=== PATIENT | female | born 1970 | race Two or more races ===

== ENCOUNTER 2025-05-11 01:14 | Inpatient (IN) | payer OTHER ==
[~2025-05-11] VITALS: Ht 170.2 cm; Wt 75.9 kg
--- NOTE | 2025-05-11 01:35 | ED.PDOC ---
History of Present Illness HPI Comments 54 y/o F, with a history of CHF, DM, MA, and former and second-hand tobacco, presents with 2x day history of nonradiating, sternal chest tightness, with associated shortness of breath. She reports persisting symptoms following initial, unprovoked onset. Endorses no recent travel, strenuous activities, stressors, prior ailments, or sick contact. She only reports recent history of MA 1x month ago, where she needed chest compressions performed on her alongside a 11x day hospital admission. Admits to compliancy with her medications. Denies any palpitations, nausea, vomiting, fever, chills, or further associated symptoms. 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 Social History Smoker: Non-Smoker, Quit Greater Than 1 Year, Secondhand Alcohol: Denies ETOH Use Drugs: Denies Drug Use Lives In: Home All Other Systems: Reviewed and Negative (see HPI) Physical Exam General Appearance: Mild Distress, Normal HEENT: Normal ENT Inspection, Pharynx Normal, TMs Normal Neck: Full Range of Motion, Non-Tender, Normal, Normal Inspection Respiratory: Chest Non-Tender, No Accessory Muscle Use, No Respiratory Distress, Wheezing (few scattered expiratory wheezes, bilaterally) Cardiovascular: No Edema, No JVD, No Murmur, No Gallop, Normal Peripheral Pulses, Regular Rate/Rhythm Breast Exam: Deferred Gastrointestinal: No Organomegaly, Non Tender, No Pulsatile Mass, Normal Bowel Sounds, Soft Genitalia: Deferred Pelvic: Deferred Rectal: Deferred Extremities: No calf tenderness, Normal capillary refill, Normal inspection, Normal range of motion, Non-tender, No pedal edema Musculoskeletal : Apperance: Normal Neurologic: 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 Was a procedure done?: No EKG EKG : [place]: Normal Cardiac Rhythm: NSR Block: LBBB (incomplete ) Hypertrophy: LVH (with repolarization abnormality ) ST: Normal Differential Dx Considerations may include: MA, PE, ACS, URI, PNA, anxiety, gastritis, gastroenteritis, among others X-Ray, Labs, Meds, VS Vital Signs Date Time Temp Pulse Resp B/P (MAP) Pulse Ox O2 Delivery O2 Flow Rate FiO2 05/11/25 02:41 98.3 89 19 156/94 (114) 96 98.3 05/11/25 01:47 93 05/11/25 01:14 98.9 99 18 183/106 (131) 94 98.9 Lab Test 05/11/25 02:11 05/11/25 01:19 05/11/25 01:03 Range/Units Troponin I High Sensitivity 13 13 </=34 ng/L White Blood Count 5.6 4.4-10.8 10^3/uL Red Blood Count 4.06 4.0-5.20 10^6/uL Hemoglobin 10.7 L 12.2-16.2 g/dL Hematocrit 33.0 L 36.0-46.0 % Mean Corpuscular Volume 81.3 80.0-100.0 fL Mean Corpuscular Hemoglobin 26.2 L 28.0-32.0 pg Mean Corpuscular Hemoglobin Concent 32.3 32.0-36.0 g/dL Red Cell Distribution Width 17.9 H 11.8-14.3 % Platelet Count 255 140-450 10^3/uL Mean Platelet Volume 8.1 6.9-10.8 fL Neutrophils (%) (Auto) 54.8 37.0-80.0 % Lymphocytes (%) (Auto) 32.2 10.0-50.0 % Monocytes (%) (Auto) 8.9 0.0-12.0 % Eosinophils (%) (Auto) 3.1 0.0-7.0 % Basophils (%) (Auto) 1.0 0.0-2.0 % Neutrophils # (Auto) 3.1 1.6-8.6 10 ^3/uL Lymphocytes # (Auto) 1.8 0.4-5.4 10 ^3/uL Monocytes # (Auto) 0.5 0-1.3 10 ^3/uL Eosinophils # (Auto) 0.2 0-0.8 10 ^3/uL Basophils # (Auto) 0.1 0-0.2 10 ^3/uL Nucleated Red Blood Cells 0.1 % Prothrombin Time 10.3 9.3-11.8 sec Prothrombin Time INR 0.97 0.9-1.15 Activated Partial Thromboplast Time 27.2 24.5-34.5 SEC Sodium Level 143 136-145 mmol/L Potassium Level 4.3 3.5-5.1 mmol/L Chloride Level 108 H 98-107 mmol/L Carbon Dioxide Level 27 20-31 mmol/L Anion Gap 8 5-15 Blood Urea Nitrogen 15 9-23 mg/dL Creatinine 1.18 H 0.550-1.02 mg/dL Glomerular Filtration Rate Calc 55 >90 mL/min BUN/Creatinine Ratio 12.7 10.0-20.0 Serum Glucose 162 H 74-106 mg/dL Calcium Level 8.6 L 8.7-10.4 mg/dL Total Bilirubin 0.2 0.2-1.0 mg/dL Aspartate Amino Transferase (AST) 24 <34 U/L Alanine Aminotransferase (ALT) 21 7-40 U/L Alkaline Phosphatase 72 46-116 U/L B-Type Natriuretic Peptide 961.78 0-100 pg/mL Total Protein 6.3 5.7-8.2 g/dL Albumin 3.7 3.2-4.8 g/dL Urine Color Light-yellow Yellow Urine Clarity Clear Clear Urine pH 7.0 5.0-9.0 Urine Specific [place] 1.024 1.001-1.035 Urine Protein 3+ H Negative Urine Ketones Negative Negative Urine Blood 1+ H Negative /uL Urine Nitrite Negative Negative Urine Bilirubin Negative Negative Urine Urobilinogen Normal Negative mg/dL Urine Leukocyte Esterase Negative Negative /uL Urine RBC 11 0 - 4 /hpf Urine Microscopic WBC 11 H 0-5 /HPF Urine Squamous Epithelial Cells Few <5 /hpf Urine Bacteria None seen None Seen /hpf Urine Yeast (Budding) Occasional None Seen /hpf Urine Glucose 4+ H Normal mg/dL Urine Opiates Screen Neg NEGATIVE Urine Fentanyl Screen Neg NEGATIVE Urine Barbiturates Screen Neg NEGATIVE Urine Phencyclidine Screen Neg NEGATIVE Urine Amphetamines Screen Neg NEGATIVE Urine Benzodiazepines Screen Neg NEGATIVE Urine Cocaine Screen Neg NEGATIVE Urine Cannabinoids Screen Neg NEGATIVE Current Medications Medications (Trade) Dose Ordered Sig/Colby Route Start Time Stop Time Status Last Admin Ondansetron HCl (Zofran) 4 mg ONCE ONCE IV 05/11/25 01:30 05/11/25 01:31 DC 05/11/25 02:37 Aspirin 162 mg ONCE ONCE PO 05/11/25 01:30 05/11/25 01:31 DC 05/11/25 02:37 Acetaminophen/ Hydrocodone Bitart ([place] 10/325MG Tab) 1 tab ONCE ONCE PO 05/11/25 03:00 05/11/25 03:03 DC 05/11/25 03:08 Time of 1ST Reevaluation: 01:55 Reevaluation 1ST: Unchanged Patient Education/Counseling: Diagnosis, Treatment Family Education/Counseling: No Family Present Departure 1 Departure Time of Disposition: 03:45 Impression: Primary Impression: Acute coronary syndrome Disposition: 09 ADMITTED INPATIENT Admit to: [facility] Condition: Guarded Comments Chest Pain and Shortness of Breath in 54-year-old Female with Cardiac History Chief Complaint: Chest pain and shortness of breath for two days History of Present Illness: Patient is a 54-year-old female with significant cardiac history including hypertension, congestive heart failure, and prior myocardial infarction, as well as type 2 diabetes mellitus who presents to the Emergency Department with complaints of dull chest pain and shortness of breath for the past two days. The patient reports these symptoms have been persistent but not worsening. She is currently chest pain free after receiving aspirin in the ED. Given her significant cardiac risk factors and current presentation, there is concern for acute coronary syndrome. Review of Systems: Cardiovascular: Positive for dull chest pain for two days, now resolved. Positive for shortness of breath. Respiratory: Positive for shortness of breath for two days. Constitutional: No fever, chills, or weight changes reported. All other systems: Deferred or negative. Medications: Current medications not specified in nut chopper. Aspirin administered in ED. Allergies: No known allergies documented. Past Medical History: 1. Hypertension 2. Congestive Heart Failure (CHF) 3. Previous Myocardial Infarction (MA) 4. Type 2 Diabetes Mellitus Lab Results: CBC: - Hemoglobin and Hematocrit: 10.7/33 (Borderline anemia) Chemistry Panel: - Chloride: 108 mEq/L (Slightly elevated) - BUN: 15 mg/dL (Normal) - Creatinine: 1.18 mg/dL (Slightly elevated) - Glucose: 162 mg/dL (Elevated) Cardiac Markers: - Troponin: 13 ng/L (Normal) - BNP: 962 pg/mL (Elevated) Imaging and Other Relevant Results: Chest X-ray: No acute pathology identified. Medical Decision Making: Summary Statement: 54-year-old female with multiple cardiac risk factors including hypertension, CHF, prior MA, and type 2 diabetes presenting with chest pain and shortness of breath for two days. Lab work shows borderline anemia, mildly elevated creatinine, hyperglycemia, and significantly elevated BNP, though troponin is normal. Chest X-ray shows no acute pathology. Problem List: 1. Acute chest pain, now resolved 2. Shortness of breath 3. Elevated BNP suggesting possible CHF exacerbation 4. Borderline anemia 5. Chronic hypertension 6. Type 2 diabetes with hyperglycemia 7. History of prior MA 8. Mild renal insufficiency Differential Diagnosis: 1. Acute Coronary Syndrome 2. CHF exacerbation 3. Stable angina 4. Hypertensive emergency 5. Pulmonary embolism 6. Pneumonia 7. Ga stroesophageal reflux disease 8. Musculoskeletal chest pain ED Course: Patient presented with chest pain and shortness of breath. Initial workup included CBC, chemistry panel, cardiac enzymes, BNP, and chest X-ray. Patient was administered aspirin and is currently chest pain free. Given her cardiac risk factors and presentation, she is being admitted with a working diagnosis of acute coronary syndrome for further evaluation and management. Assessment and Plan: 1. Acute Coronary Syndrome: - Patient presents with chest pain and shortness of breath with multiple cardiac risk factors - Initial troponin normal, but will need serial troponins to rule out NSTEMI - Administered aspirin in ED with resolution of chest pain - Admit to telemetry for observation and further cardiac workup - Consider cardiology consultation - Plan for stress test or cardiac catheterization as indicated 2. Congestive Heart Failure: - Elevated BNP (962) suggests possible CHF component - Continue current heart failure medications - Monitor fluid status and daily weights - Consider diuresis if evidence of volume overload 3. Hypertension: - Continue home antihypertensive medications - Monitor blood pressure closely 4. Type 2 Diabetes: - Elevated glucose at 162 mg/dL - Continue home diabetic medications with appropriate adjustments for NPO status if needed - Monitor blood glucose levels 5. Borderline Anemia (Hgb 10.7): - Monitor hemoglobin levels - Consider workup for etiology if persistent 6. Mild Renal Insufficiency (Cr 1.18): - Monitor renal function - Adjust medications as needed based on renal function - Ensure adequate hydration Additional Notes: Patient presented to the ED with chest pain and shortness of breath. History of CHF, hypertension, diabetes, and prior MA. Billing Information: ICD-10: I20.9 - Angina pectoris, unspecified ICD-10: I50.9 - Heart failure, unspecified ICD-10: I10 - Essential (primary) hypertension ICD-10: E11.9 - Type 2 diabetes mellitus without complications ICD-10: I25.2 - Old myocardial infarction Critical Care Note Critical Care Time?: Yes (35 min-critical care time only) Critical care comment: chest pain Total critical care time: Approximately 36 minutes Due to a high probability of clinically significant, life threatening deterioration, the patient required my highest level of preparedness to intervene emergently and I personally spent this critical care time directly and personally managing the patient. This critical care time included obtaining a history; examining the patient; pulse oximetry; ordering and review of studies; arranging urgent treatment with development of a management plan; evaluation of patient's response to treatment; frequent reassessment; and, discussions with other providers. This critical care time was performed to assess and manage the high probability of imminent, life-threatening deterioration that could result in multi-organ failure. It was exclusive of separately billable procedures and treating other patients. Stability Stability form required: No Heart Score Heart Score: Heart Score Response (Comments) Value History Highly Suspicious 2 EKG Repolarization Disturb 1 Age 45-64 1 Risk Factors >3 or Hx ASHD 2 Troponin Normal limit 0 Total 6 I personally scribed for SB MCCARTHY MD ([email or web address]) on 05/11/25 at 01:35. Electronically submitted by [facility] ([email or web address]). SB MCCARTHY MD May 11, 2025 01:35
[2025-05-11 01:36] LABS: Basophils # (auto) 0.1 10 ^3/uL (0-0.2); Eosinophils # (auto) 0.2 10 ^3/uL (0-0.8); Eosinophils % (auto) 3.1 % (0.0-7.0); Hemoglobin 10.7 g/dL (12.2-16.2); Lymphocytes # (auto) 1.8 10 ^3/uL (0.4-5.4); Lymphocytes % (auto) 32.2 % (10.0-50.0); Mean Corpuscular Hemoglobin 26.2 pg (28.0-32.0); Mean Corpuscular Hgb Conc. 32.3 g/dL (32.0-36.0); Mean Corpuscular Volume 81.3 fL (80.0-100.0); Monocytes # (auto) 0.5 10 ^3/uL (0-1.3); Monocytes % (auto) 8.9 % (0.0-12.0); Neutrophils # (auto) 3.1 10 ^3/uL (1.6-8.6); Neutrophils % (auto) 54.8 % (37.0-80.0); Nucleated Red Blood Cells % 0.1 %; Platelet Count (auto) 255 10^3/uL (140-450); Red Blood Cells 4.06 10^6/uL (4.0-5.20); Red Cell Distribution Width 17.9 % (11.8-14.3); White Blood Cell 5.6 10^3/uL (4.4-10.8)
[2025-05-11 01:45] LABS: Albumin 3.7 g/dL (3.2-4.8); Alkaline Phosphatase 72 U/L (46-116); Anion Gap 8 (5-15); Aspartate Aminotransferase 24 U/L (<34); BUN/Creatinine Ratio 12.7 (10.0-20.0); Blood Urea Nitrogen 15 mg/dL (9-23); Carbon Dioxide 27 mmol/L (20-31); Potassium 4.3 mmol/L (3.5-5.1); Sodium 143 mmol/L (136-145); Total Protein 6.3 g/dL (5.7-8.2)
[2025-05-11 01:46] LABS: Alanine Aminotransferase 21 U/L (7-40); Bilirubin, Total 0.2 mg/dL (0.2-1.0); Calcium 8.6 mg/dL (8.7-10.4); Chloride 108 mmol/L (98-107); Glucose 162 mg/dL (74-106)
[2025-05-11 01:51] LABS: INR 0.97 (0.9-1.15); Partial Thromboplastin Time 27.2 SEC (24.5-34.5); Prothrombin Time 10.3 sec (9.3-11.8)
--- NOTE | 2025-05-11 01:55 | DVH ---
CHEST RADIOGRAPH Indication: chest pain Technique: Single frontal view of the chest was obtained COMPARISON: None FINDINGS: Lines and Tubes: None Lungs: Clear Pleura: No effusion. No pneumothorax. Cardiomediastinal contours: Unremarkable Bones: Unremarkable IMPRESSION: 1. No acute disease.
[2025-05-11] MEDS: MORPHINE SULFATE 4 MG/ML SYR/VIAL IV ONE (02:33)
[2025-05-11] MEDS: ASPirin 81 mg TAB PO ONE (02:37)
[2025-05-11] MEDS: ONDANSETRON HCL 4 MG/2 ML VIAL IV ONE (02:37)
[2025-05-11 02:49] LABS: Urine Bacteria None Seen /hpf (None Seen)
[2025-05-11 02:58] LABS: Urine Blood 1+ /uL (Negative); Urine Budding Yeast OCCASIONAL /hpf (None Seen); Urine Clarity Clear (Clear); Urine Color Light-Yellow (Yellow); Urine Protein, UAD 3+ (Negative); Urine Specific Gravity 1.024 (1.001-1.035); Urine Squamous Epithelial Cell FEW /hpf (<5); Urine Urobilinogen Normal (Negative); Urine WBC 11 /HPF (0-5)
[2025-05-11] MEDS: HYDROcodone-ACET 10/325MG TAB PO ONE (03:08)
[2025-05-11 03:09] LABS: Cannabinoid Screen, Urine Neg (NEGATIVE); Opiate Scree,Urine Neg (NEGATIVE)
[2025-05-11 03:18] LABS: Amphetamine Screen, Urine Neg (NEGATIVE); Barbiturate Scree,Urine Neg (NEGATIVE); Benzodiazephine Screen, Urine Neg (NEGATIVE); Cocaine Screen, Urine Neg (NEGATIVE); Phencyclidine Screen, Urine Neg (NEGATIVE)
--- NOTE | 2025-05-11 07:10 | DVHHP2 ---
History of Present Illness Reason for Visit: Chest pain History of Present Illness 54-year-old female past medical history CHF hypertension diabetes [place] one month ago which caused cardiac arrest had performed CPR where they broke her ribs anxiety patient denies any surgical history chief complaint patient states that she had an [place] one month ago she was in [place] at that time they had did CPR due to a cardiac arrest in her ribs were broken she was able to get ROS and she states she recently came here from [place] a week ago and reason for comes in the hospital today was history complain of chest pain is midsternal she also states she had some shortness of the breath. Patient states the pain feels like a pr essure pain in her chest wall and she is very fearful because of her prior cardiac arrest. Patient states she is taking her medication which is Lipitor Neurontin Flonase spironolactone Coreg Eliquis Entresto aspirin Imdur. pt unsure why she took eliquis she don't know, did ask about pe or dvt pt denies, pt has started medication in [place], did ask hosp pt unsure of the name, when evaluating for ready hope her aspirin morphine Zofran hemoglobin 10.7/33.0 crea 1.18, glucose 162, trop negative x2, bnp 961.78, cxr negative, us negative, pt will be admitted and cards consult. Past Medical History See HPI above Past Surgical History See HPI above Family History Reviewed, non-contributory to the management of this case. Past Social History The patient lives at home, denies smoking, alcohol or illicit drugs abuse. no longer smoke Review of Systems Constitutional: No: Fever, Chills, Sweats, Weakness, Malaise, Other Eyes: No: Pain, Vision change, Conjunctivae inflammation, Eyelid inflammation, Other, Redness ENT: No: Ear pain, Ear discharge, Nose pain, Nose discharge, Nose congestion, Mouth pain, Mouth swelling, Throat pain, Throat swelling, Other Respiratory: Shortness of breath; No: Cough, Dry, SOB with excertion, Wheezing, Hemoptysis, Pleuritic Pain, Sputum, Wheezing, Other Cardiovascular: Chest Pain; No: Palpitations, Orthopnea, Paroxysmal Noc. Dyspnea, Edema, Lt Headedness, Other Gastrointestinal: No: Nausea, Vomiting, Abdominal Pain, Diarrhea, Constipation, Melena, Hematochezia, Other Genitourinary: No Dysuria, No Frequency, No Incontinence, No Hematuria, No Retention, No Other Musculoskeletal: No: other, neck pain, shoulder pain, arm pain, back pain, hand pain, leg pain, foot pain Skin: No: Rash, Lesions, Jaundice, Bruising, Other Neurological: No: Weakness, Numbness, Incoordination, Change in speech, Confusion, Seizures, Other Allergies: Coded Allergies: Morphine (Verified Allergy, Intermediate, 05/11/25) Exam Vital Signs Vital Signs Date Time Temp Pulse Resp B/P (MAP) Pulse Ox O2 Delivery O2 Flow Rate FiO2 05/11/25 06:23 78 05/11/25 02:41 98.3 19 156/94 (114) 96 98.3 General Appearance: Alert, Oriented X3, Cooperative, No acute distress HEENT: Atraumatic, PERRLA, EOMI, Mucous membr. moist/pink Respiratory: Normal air movement, Other (diminished lungs sound throughout ) Cardiovascular: Regular rate, Normal S1, Normal S2, No murmurs Abdominal: Normal bowel sounds, Soft, No tenderness, No hepatospenomegaly, No masses Extremities: No clubbing, No cyanosis, No edema, Normal pulses, No tenderness/swelling Skin: No rashes, No breakdown, No significant lesion Neuro: Normal gait, Normal speech, Strength at 5/5 X4 ext, Normal tone, Sensation intact, Cranial nerves 3-12 NL Psych/Mental Status: Mental status NL, Mood NL Labs/Xrays Chest x-ray unremarkable I reviewed labs, imaging CT scan abdomen pelvis, EKG and all diagnostic studies on this patient from ED records and the medical chart Labs Test 05/11/25 02:11 05/11/25 01:19 05/11/25 01:03 Range/Units Troponin I High Sensitivity 13 </=34 ng/L White Blood Count 5.6 4.4-10.8 10^3/uL Red Blood Count 4.06 4.0-5.20 10^6/uL Hemoglobin 10.7 L 12.2-16.2 g/dL Hematocrit 33.0 L 36.0-46.0 % Mean Corpuscular Volume 81.3 80.0-100.0 fL Mean Corpuscular Hemoglobin 26.2 L 28.0-32.0 pg Mean Corpuscular Hemoglobin Concent 32.3 32.0-36.0 g/dL Red Cell Distribution Width 17.9 H 11.8-14.3 % Platelet Count 255 140-450 10^3/uL Mean Platelet Volume 8.1 6.9-10.8 fL Neutrophils (%) (Auto) 54.8 37.0-80.0 % Lymphocytes (%) (Auto) 32.2 10.0-50.0 % Monocytes (%) (Auto) 8.9 0.0-12.0 % Eosinophils (%) (Auto) 3.1 0.0-7.0 % Basophils (%) (Auto) 1.0 0.0-2.0 % Neutrophils # (Auto) 3.1 1.6-8.6 10 ^3/uL Lymphocytes # (Auto) 1.8 0.4-5.4 10 ^3/uL Monocytes # (Auto) 0.5 0-1.3 10 ^3/uL Eosinophils # (Auto) 0.2 0-0.8 10 ^3/uL Basophils # (Auto) 0.1 0-0.2 10 ^3/uL Nucleated Red Blood Cells 0.1 % Prothrombin Time 10.3 9.3-11.8 sec Prothrombin Time INR 0.97 0.9-1.15 Activated Partial Thromboplast Time 27.2 24.5-34.5 SEC Sodium Level 143 136-145 mmol/L Potassium Level 4.3 3.5-5.1 mmol/L Chloride Level 108 H 98-107 mmol/L Carbon Dioxide Level 27 20-31 mmol/L Anion Gap 8 5-15 Blood Urea Nitrogen 15 9-23 mg/dL Creatinine 1.18 H 0.550-1.02 mg/dL Glomerular Filtration Rate Calc 55 >90 mL/min BUN/Creatinine Ratio 12.7 10.0-20.0 Serum Glucose 162 H 74-106 mg/dL Calcium Level 8.6 L 8.7-10.4 mg/dL Total Bilirubin 0.2 0.2-1.0 mg/dL Aspartate Amino Transferase (AST) 24 <34 U/L Alanine Aminotransferase (ALT) 21 7-40 U/L Alkaline Phosphatase 72 46-116 U/L B-Type Natriuretic Peptide 961.78 0-100 pg/mL Total Protein 6.3 5.7-8.2 g/dL Albumin 3.7 3.2-4.8 g/dL Urine Color Light-yellow Yellow Urine Clarity Clear Clear Urine pH 7.0 5.0-9.0 Urine Specific [place] 1.024 1.001-1.035 Urine Protein 3+ H Negative Urine Ketones Negative Negative Urine Blood 1+ H Negative /uL Urine Nitrite Negative Negative Urine Bilirubin Negative Negative Urine Urobilinogen Normal Negative mg/dL Urine Leukocyte Esterase Negative Negative /uL Urine RBC 11 0 - 4 /hpf Urine Microscopic WBC 11 H 0-5 /HPF Urine Squamous Epithelial Cells Few <5 /hpf Urine Bacteria None seen None Seen /hpf Urine Yeast (Budding) Occasional None Seen /hpf Urine Glucose 4+ H Normal mg/dL Urine Opiates Screen Neg NEGATIVE Urine Fentanyl Screen Neg NEGATIVE Urine Barbiturates Screen Neg NEGATIVE Urine Phencyclidine Screen Neg NEGATIVE Urine Amphetamines Screen Neg NEGATIVE Urine Benzodiazepines Screen Neg NEGATIVE Urine Cocaine Screen Neg NEGATIVE Urine Cannabinoids Screen Neg NEGATIVE Assessment/Plan Assessment/Plan acute chest pain r/o Acute Coronary Syndrome trop negative and ekg no stemi ordered Cards consult since pt had hx of mi and cardiac arrest ordered asa atorvastatin ordered Echocardiogram follow-up results ordered morphine as needed for pain, ordered nitro prn Acute on chronic diastolic systolic congestive heart failure cxr normal but elevation in bnp 961.18 ordered echo fu results ordered Lasix, asa. atorvastatin strict i/o's consider bipap if worsening resp distress ordered card request restrict sodium daily wt o2 to keep sats >92% acute raeann likely from heart failure cont to dieursis strict i/o's consider renal consult if worsening acute on chronic anemia ordered occult stool fu results monitor hemoglobin uncontrolled type 2 dm ordered accuchecks and ISS rounding team can check hemoglobin a1c uncontrolled benign essential hypertension cont home medication chronic problems mi post cardiac arrest s/p mi fen/ppx diet hl scd no gi ppx since no hx of gerds or gi bleed plan admit to tele cards consult Plan discussed with: Patient Date of Service: May 11, 2025 Billing Provider: DORON PISANO DNP Common Visit Codes: [id number] INP/OBS CARE (HIGH) DORON PISANO DNP May 11, 2025 07:10
--- NOTE | 2025-05-11 08:14 | ECG ---
[facility] Test Date: 2025-05-11 Test Time: 06:23:31 Pat Name: JIGNESH ROOT Department: ED Room: [address] [place] [address] Gender: F Phone Representative: : [phone] Requested By: EMERGENCY EMERGENCY Order Number: [id number] Reading MD: Prieto Martinez Measurements Intervals [place] Rate: 78 P: 32 MT: 173 QRS: -27 QRSD: 117 T: 138 QT: 415 QTc: 473 Interpretive Statements Sinus rhythm LVH with IVCD and secondary repol abnrm Baseline wander in lead(s) I,II,III,aVR,aVF,V2 Electronically Signed On 05-11-2025 17:32:43 PDT by Prieto Martinez Please click the below link to view image of tracing.
[2025-05-11] MEDS ORDERED: DEXTROSE (50%) 50ML SYRG IV PRN (09:15)
[2025-05-11] MEDS ORDERED: NITROGLYCERIN 0.4 MG SL TAB SL PRN (09:15)
[2025-05-11] MEDS: FUROSEMIDE 40 MG/4 ML VIAL IV SCH (10:00)
[2025-05-11 10:51] VITALS: PULSE 82; RESP 16; O2SAT 93
[2025-05-11] MEDS: SACUBITRIL-VALSARTAN 24mg/26mg TAB PO SCH (11:01)
[2025-05-11] MEDS: CARVEDILOL 12.5 MG TAB PO SCH (11:02)
[2025-05-11] MEDS: SPIRONOLACTONE 25 MG TAB PO SCH (11:02)
[2025-05-11] MEDS: InsuLIN REG 1unit/0.01ml Soln (100units/ml) SC SCH (11:15)
[2025-05-11] MEDS: ACCU-CHEK COMFORT CURVE STRIP VI SCH (11:15)
--- NOTE | 2025-05-11 12:53 | DVHINCON2 ---
Date Seen: May 11, 2025 Referring Physician Chris Reason for Consultation Chest Pain, CHF History of Present Illness 54-year-old female with PMH for HTN, HLD, CHF, RI, cardiac arrest s/p CPR, previous tobacco use, COPD, history of amphetamine abuse endorses last use approximately a year ago presents to the hospital with chest pain and shortness of breath. Patient states chest pain pressure in nature retrosternal, nonradiating, reproducible with deep inhalation, tender to touch, patient endorses associated with shortness of breath. Troponin negative x3, BNP 961. CXR unremarkable. Of note patient has endorses was in [place] approximately little over a month ago to worsening shortness of breath, patient states she was a full arrest needing CPR for shows intubated for approximately 1 week. Unaware of what was found. Denies any cardiac workup during that time. EKG reviewed and shows sinus rhythm at 78 beats per minute, nonspecific ST abnormality. Past Medical History As stated above Past Surgical History As stated above Family History Denies pertinent family cardiac history Social History History of tobacco , alcohol, and amphetamine use in the past. Allergies: Coded Allergies: Morphine (Verified Allergy, Intermediate, 05/11/25) Current Medications Current Medications Medications (Trade) Dose Ordered Sig/Colby Route PRN Reason Start Time Stop Time Status Last Admin Atorvastatin Calcium (Lipitor) 40 mg HS PO 05/11/25 22:00 Carvedilol (Coreg Tablet) 12.5 mg Q12HR PO 05/11/25 10:00 05/11/25 11:02 Sacubitril/ Valsartan (Entresto 24-26 Mg tab) 1 tab BID PO 05/11/25 10:00 05/11/25 11:01 Furosemide (Lasix Injection) 40 mg BID IV 05/11/25 10:00 05/11/25 10:00 Spironolactone (Aldactone) 25 mg DAILY PO 05/11/25 10:00 05/11/25 11:02 Nitroglycerin (Ntrostat Sublingual) 0.4 mg Q5MINP PRN SL FOR CHEST PAIN 05/11/25 09:15 Lorazepam (Ativan Tablet) 0.5 mg Q12HP PRN PO ANXIETY 05/11/25 09:15 Diagnostic Test (Pha) (Accu-Chek Comfort Curve T) 1 strip ACHS 05/11/25 11:30 05/11/25 11:15 Insulin Human Regular (InsuLIN R) ACHS SC 05/11/25 11:30 Dextrose 50 ml UD PRN IV Blood Sugar LESS THAN 60 05/11/25 09:15 Gabapentin (Neurontin Capsule) 300 mg TID PO 05/11/25 14:00 Review of Systems Constitutional: No: Fever, Chills, Sweats, Weakness, Malaise, Other Eyes: No: Pain, Vision change, Conjunctivae inflammation, Eyelid inflammation, Other, Redness ENT: No: Ear pain, Ear discharge, Nose pain, Nose discharge, Nose congestion, Mouth pain, Mouth swelling, Throat pain, Throat swelling, Other Respiratory: No: Cough, Dry, Wheezing, Hemoptysis, Sputum, Wheezing, Other positive: Shortness of breath, SOB with exertion, Pleuritic Pain, Cardiovascular: ; No: Palpitations, Orthopnea, Paroxysmal Noc. Edema, Lt Headedness, Other positive: Dyspnea,Chest Pain Gastrointestinal: No: Nausea, Vomiting, Abdominal Pain, Diarrhea, Constipation, Melena, Hematochezia, Other Genitourinary: No Dysuria, No Frequency, No Incontinence, No Hematuria, No Retention, No Other Musculoskeletal: neck pain; No: other, shoulder pain, arm pain, back pain, hand pain, leg pain, foot pain Skin: No: Rash, Lesions, Jaundice, Bruising, Other Neurological: Other (Dizziness, headache.); No: Weakness, Numbness, Incoordination, Change in speech, Confusion, Seizures Vital Signs Vital Signs Date Time Temp Pulse Resp B/P (MAP) Pulse Ox O2 Delivery O2 Flow Rate FiO2 05/11/25 11:02 78 162/96 05/11/25 10:53 16 93 05/11/25 10:51 Room Air* 0 21 05/11/25 09:51 97.9 97.9 Physical Exam General appearance: Patient is well-developed, well-nourished, in no acute distress. HEENT: Exam shows: Normocephalic, atraumatic, PERRLA, EOMI Neck: Supple, no bruits Chest: Equal chest excursion bilaterally. Breath sounds normal-no rales or wheezes. Heart: Rhythm: Regular rate; no murmur or gallop Abdomen: Exam shows: Soft, nontender, nondistended Musculoskeletal: No clubbing, no cyanosis, no lower extremity edema Dermatology: Skin warm, moist. Neurological: Exam shows: Alert and oriented x4, normal speech Available prior records, labs, EKG, rhythm strips reviewed and interpreted Labs/Diagnostic Data Labs Test 05/11/25 09:20 05/11/25 02:11 05/11/25 01:19 05/11/25 01:03 Range/Units D-Dimer, Quantitative 0.92 H 0.0-0.49 mg/L FEU Troponin I High Sensitivity 13 </=34 ng/L Thyroid Stimulating Hormone (TSH) 2.85 0.55-4.78 uIU/mL White Blood Count 5.6 4.4-10.8 10^3/uL Red Blood Count 4.06 4.0-5.20 10^6/uL Hemoglobin 10.7 L 12.2-16.2 g/dL Hematocrit 33.0 L 36.0-46.0 % Mean Corpuscular Volume 81.3 80.0-100.0 fL Mean Corpuscular Hemoglobin 26.2 L 28.0-32.0 pg Mean Corpuscular Hemoglobin Concent 32.3 32.0-36.0 g/dL Red Cell Distribution Width 17.9 H 11.8-14.3 % Platelet Count 255 140-450 10^3/uL Mean Platelet Volume 8.1 6.9-10.8 fL Neutrophils (%) (Auto) 54.8 37.0-80.0 % Lymphocytes (%) (Auto) 32.2 10.0-50.0 % Monocytes (%) (Auto) 8.9 0.0-12.0 % Eosinophils (%) (Auto) 3.1 0.0-7.0 % Basophils (%) (Auto) 1.0 0.0-2.0 % Neutrophils # (Auto) 3.1 1.6-8.6 10 ^3/uL Lymphocytes # (Auto) 1.8 0.4-5.4 10 ^3/uL Monocytes # (Auto) 0.5 0-1.3 10 ^3/uL Eosinophils # (Auto) 0.2 0-0.8 10 ^3/uL Basophils # (Auto) 0.1 0-0.2 10 ^3/uL Nucleated Red Blood Cells 0.1 % Prothrombin Time 10.3 9.3-11.8 sec Prothrombin Time INR 0.97 0.9-1.15 Activated Partial Thromboplast Time 27.2 24.5-34.5 SEC Sodium Level 143 136-145 mmol/L Potassium Level 4.3 3.5-5.1 mmol/L Chloride Level 108 H 98-107 mmol/L Carbon Dioxide Level 27 20-31 mmol/L Anion Gap 8 5-15 Blood Urea Nitrogen 15 9-23 mg/dL Creatinine 1.18 H 0.550-1.02 mg/dL Glomerular Filtration Rate Calc 55 >90 mL/min BUN/Creatinine Ratio 12.7 10.0-20.0 Serum Glucose 162 H 74-106 mg/dL Calcium Level 8.6 L 8.7-10.4 mg/dL Total Bilirubin 0.2 0.2-1.0 mg/dL Aspartate Amino Transferase (AST) 24 <34 U/L Alanine Aminotransferase (ALT) 21 7-40 U/L Alkaline Phosphatase 72 46-116 U/L B-Type Natriuretic Peptide 961.78 0-100 pg/mL Total Protein 6.3 5.7-8.2 g/dL Albumin 3.7 3.2-4.8 g/dL Urine Color Light-yellow Yellow Urine Clarity Clear Clear Urine pH 7.0 5.0-9.0 Urine Specific [place] 1.024 1.001-1.035 Urine Protein 3+ H Negative Urine Ketones Negative Negative Urine Blood 1+ H Negative /uL Urine Nitrite Negative Negative Urine Bilirubin Negative Negative Urine Urobilinogen Normal Negative mg/dL Urine Leukocyte Esterase Negative Negative /uL Urine RBC 11 0 - 4 /hpf Urine Microscopic WBC 11 H 0-5 /HPF Urine Squamous Epithelial Cells Few <5 /hpf Urine Bacteria None seen None Seen /hpf Urine Yeast (Budding) Occasional None Seen /hpf Urine Glucose 4+ H Normal mg/dL Urine Opiates Screen Neg NEGATIVE Urine Fentanyl Screen Neg NEGATIVE Urine Barbiturates Screen Neg NEGATIVE Urine Phencyclidine Screen Neg NEGATIVE Urine Amphetamines Screen Neg NEGATIVE Urine Benzodiazepines Screen Neg NEGATIVE Urine Cocaine Screen Neg NEGATIVE Urine Cannabinoids Screen Neg NEGATIVE Assessment * Chest Pain - atypical. Troponins negative. EKG with nonspecific ST abnormality. ACS ruled out. Follow up echo. * Mild Acute on chronic HF, systolic vs diastolic - continue diuresis with Lasix 40 mg IV twice daily. Monitor strict I&Os. Follow up echo. * CLARENEC - monitor response with diuresis. Avoid nephrotoxic agents. * HX cardiac arrest, s/p CPR - continue telemetry monitoring. * Uncontrolled HTN - continue current regimen, titrate as tolerated. * Diabetes - management per primary team. Case Discussed with Dr Martinez. Plan as above. Follow up to obtain medical records from recent cardiac arrest. Check echo. Continue diuresis. Critical care, time spent: 42 minutes This medical document was created using an electronic medical record system with voice recognition software and computerized dictation system. Although this document has been carefully reviewed, there might still be some phonetic and typographical errors. Occasional wrong-word or ``sound-alike substitutions may have occurred due to the inherent limitations of voice recognition software. These areas are purely typographical due to imperfections of the software programs and do not reflect any compromise in the patient's medical care. Please read the chart carefully and recognize, using context, where these substitutions have occurred. Thank you for allowing me to participate in the management of this patient. The treatment plan was discussed with and agreed upon by patient/family including requesting consultants and ordering of imaging/procedures. Plan discussed with: Patient NYHA Physical activity limitations: Class2(Slight)fatigue,sob Date of Service: May 11, 2025 Billing Provider: RINA TOTH Cardiology Common Codes: 88221-CANODCF INP/OBS CARE (High), 72567-IPPLFXDA CARE 30-74 MIN RINA TOTH May 11, 2025 12:53
--- NOTE | 2025-05-11 14:11 | DVH ---
Bilateral lower extremity venous duplex Clinical History: eval for dvt to ble Comparison: None Technique: Duplex doppler evaluation of the deep venous systems of both lower extremities from the common femora l veins to the popliteal veins including color doppler and spectral/pulsed waveform analysis was perf ormed. Findings: RIGHT SIDE: The common femoral vein demonstrates appropriate compressibility and waveform variability. There is compressibility/patency of the great saphenous vein at the proximal thigh. The femoral vein demonstrates appropriate compressibility and waveform variability. The deep femoral vein demonstrates appropriate compressibility and waveform variability. The popliteal vein demonstrates appropriate compressibility and waveform variability. There is normal compressibility at the tibioperoneal trunk. LEFT SIDE: The common femoral vein demonstrates appropriate compressibility and waveform variability. There is compressibility/patency of the great saphenous vein at the proximal thigh. The femoral vein demonstrates appropriate compressibility and waveform variability. The deep femoral vein demonstrates appropriate compressibility and waveform variability. The popliteal vein demonstrates appropriate compressibility and waveform variability. There is normal compressibility at the tibioperoneal trunk. Impression: 1. No right or left femoropopliteal venous thrombosis.
[2025-05-11] MEDS: GABAPENTIN 100 MG CAP PO SCH (14:43)
[2025-05-11 18:30] VITALS: BP 159/87; PULSE 76; RESP 17; TEMP 98.1; O2SAT 96
[2025-05-11 20:00] VITALS: PULSE 73; PULSE 86; RESP 17; O2SAT 96
[2025-05-11 21:00] VITALS: BP 166/86; PULSE 86; RESP 17; TEMP 97.6; O2SAT 95
[2025-05-11] MEDS: ATORVASTATIN 20 MG TAB PO SCH (21:43)
[2025-05-11] MEDS: HYDROmorphone HCL 2 MG/ML VL/or syr IV PRN (21:45)
[2025-05-11 22:07] VITALS: BP 159/87; PULSE 76; PULSE 86; RESP 17; TEMP 98.1; O2SAT 96
[2025-05-12] VITALS (11 sets, daily range): BP systolic 125–151; BP diastolic 70–87; PULSE 66–83; RESP 14–20; TEMP 97.4–98.1; O2SAT 91–100
[2025-05-12] MEDS ORDERED: SPIR25TA PO (03:50)
[2025-05-12] MEDS ORDERED: CARV6.2517 PO (03:54)
[2025-05-12] MEDS ORDERED: ATOR-507 PO (03:54)
[2025-05-12] MEDS ORDERED: SACU1CAP2 PO (03:54)
[2025-05-12] MEDS ORDERED: APIX5TAB PO (03:54)
[2025-05-12] MEDS ORDERED: GABA-1250 PO (03:54)
[2025-05-12] MEDS ORDERED: MORPHINE SULFATE INJ 2 MG/ml SYRG IV PRN (08:45)
[2025-05-12] MEDS ORDERED: ACETAMINOPHEN 500 MG TAB or CAP PO PRN (08:45)
[2025-05-12] MEDS: ASPirin 81 mg TAB PO SCH (10:54)
--- NOTE | 2025-05-12 11:01 | DVH ---
EXAMINATION: XY RIBS BILATERAL INDICATION: hx of cpr and rb fracture COMPARISON: None TECHNIQUE: Frontal view of the chest and 3 views of the right ribs history FINDINGS: No focal consolidation, pleural effusion or significant pneumothorax. Normal cardiomediastinal silhou ette. Nondisplaced right-sided rib fractures involving right ribs 4 through 7. IMPRESSION: No acute cardiopulmonary disease. Nondisplaced right-sided rib fractures involving right ribs 4 through 7.
--- NOTE | 2025-05-12 12:05 | DVHSR ---
APPROVED REPORT EXAM: Two-dimensional and M-mode echocardiogram with Doppler and color Doppler. Blood Pressure: 130/70 mmHg INDICATION Chest Pain RISK FACTORS Height: 5'7", Weight: 167 DIMENSIONS LVDd6.3 (3.8-5.7cm)LA (2D)5.9 (1.9-4.0cm)Aortic Root3.2 (2.0-3.7cm) LVDs5.7 (2.5-4.0cm)LA (MM) (1.9-4.0cm)Aortic Cusp Exc1.9 (1.5-2.0cm) EF (%) 20.0 (55-70%)Rt. Atrium4.6 (1.9-4.0cm)Asc. Aorta3.5 cm IVSd1.1 (0.7-1.1cm)RV (D)3.5 (1.8-2.4cm) PWd1.2 (0.7-1.1cm) Mitral Valve MitralMitral Stenosis E wave0.71m/sMV Mean GR.mmHg A wave1.06m/sMV Peak GR.mmHg E/A ratio0.72D MVAcm2 DECEL [id number] 1/2 Timems Aortic Valve Aortic ValveAortic Stenosis V10.74m/Daren Mean GR.4mmHg V21.33m/Daren Peak GR.7mmHg LVOT Diameter2.5 (1.8-2.4cm)Doppler AVA2.73cm2 Pulmonic Valve V20.74m/s Tricuspid Valve TR Velocity2.17m/s [id number] Conclusion lvef 30% dilated LV severe LV dysfunction moderate mitral regurg left atrium enlarged
[2025-05-12] MEDS: cefTRIAXone 1GM/50ML D5W 50 ML IV ONE (12:17)
[2025-05-12] MEDS: HYDROcodone-ACET 5/325MG TAB PO PRN (12:18)
--- NOTE | 2025-05-12 13:13 | DVHPN2 ---
Consult Progress Note Date Seen: May 12, 2025 Objective vital signs Vital Sign Date Time Temp Pulse Resp B/P (MAP) Pulse Ox O2 Delivery O2 Flow Rate FiO2 05/12/25 10:55 78 136/90 05/12/25 08:56 98.1 16 96 98.1 05/11/25 22:07 Nasal Cannula* 2 28 Total Intake and Output 05/11/25 05/11/25 05/12/25 15:00 23:00 07:00 Intake Total 905 ml Output Total 0 ml Balance 905 ml medications Current Medications Medications Dose Ordered Sig/Colby Route Start Time Stop Time Status Last Admin Dose Admin Atorvastatin Calcium 40 mg HS PO 05/11/25 22:00 05/11/25 21:43 40 MG Carvedilol 12.5 mg Q12HR PO 05/11/25 10:00 05/12/25 10:55 12.5 MG Sacubitril/ Valsartan 1 tab BID PO 05/11/25 10:00 05/12/25 10:54 1 TAB Furosemide 40 mg BID IV 05/11/25 10:00 05/12/25 10:54 40 MG Spironolactone 25 mg DAILY PO 05/11/25 10:00 05/12/25 10:54 25 MG Nitroglycerin 0.4 mg Q5MINP PRN SL 05/11/25 09:15 Lorazepam 0.5 mg Q12HP PRN PO 05/11/25 09:15 Diagnostic Test (Pha) 1 strip ACHS 05/11/25 11:30 05/12/25 11:30 1 STRIP Insulin Human Regular ACHS SC 05/11/25 11:30 05/12/25 12:25 4 UNITS Dextrose 50 ml UD PRN IV 05/11/25 09:15 Acetaminophen 500 mg Q4HPRN PRN PO 05/12/25 08:45 Acetaminophen/ Hydrocodone Bitart 1 tab Q4HPRN PRN PO 05/12/25 08:45 05/12/25 12:18 1 TAB Morphine Sulfate 1 mg Q4HPRN PRN IV 05/12/25 08:45 UNV Aspirin 81 mg DAILY PO 05/12/25 10:00 05/12/25 10:54 81 MG Ceftriaxone Sodium 50 ml @ 100 mls/hr DAILY@09 IV 05/13/25 09:00 laboratory and microbiology Laboratory Tests 05/11/25 01:19 Test 05/11/25 01:19 Range/Units Serum Glucose 162 H 74-106 mg/dL Problem List/Assessment/Plan Problem List/Assessment/Plan Assessment (Dr. Martinez) * Non-cardiac chest Pain - Transthoracic echocardiogram revealed LVEF 30% with dilated LV and severe LV dysfunction. Troponins negative. EKG with nonspecific ST abnormality. ACS ruled out. * Acute on chronic decompensated HFrEF - GDMT for CHF. Continue diuresis with Lasix 40 mg IV twice daily. Monitor strict I&Os. * Dilated/likely non-ischemic cardiomyopathy - admits to methamphetamine use with latest use three weeks ago after reported full cardiac arrest admission. * Hx cardiac arrest s/p CPR a month ago - continue telemetry monitoring. Awaiting medical records from [facility] in [place], [place] admission a month ago and [facility] in [place], [place] a month ago. * Uncontrolled HTN - continue current regimen, titrate as tolerated. * Recent hx of RLE DVT - venous US negative for acute DVT, on Elqiuis at home. * Ypy-uwwibug-gpulafqvb diabetes mellitus - management per primary team. * Polysubstance abuse - methamphetamines/cannabinoids. Strongly counseled on cessation. Thank you for allowing me to participate in the management of this patient. The treatment plan was discussed with and agreed upon by patient/family including requesting consultants and ordering of imaging/procedures. This medical document was created using an electronic medical record system with voice recognition software and computerized dictation system. Although this document has been carefully reviewed, there might still be some phonetic and typographical errors. Occasional wrong-word or ``sound-alike substitutions may have occurred due to the inherent limitations of voice recognition software. These areas are purely typographical due to imperfections of the software programs and do not reflect any compromise in the patient's medical care. Please read the chart carefully and recognize, using context, where these substitutions have occurred. Plan discussed with: Patient, Other Date of Service: May 12, 2025 Billing Provider: GINETTE DOMINGUEZ Cardiology Common Codes: 02502-[id number] HOSP CARE(High GINETTE DOMINGUEZ May 12, 2025 13:13
[2025-05-12 13:26] LABS: Triglycerides 129 mg/dL (< 150)
[2025-05-12 13:27] LABS: LDL Cholesterol 90 mg/dL (< 100)
[2025-05-12 13:28] LABS: Cholesterol 151 mg/dL (< 200)
[2025-05-12 13:32] LABS: HDL Cholesterol 39 mg/dL (40-59)
--- NOTE | 2025-05-12 14:39 | ECG ---
[facility] Test Date: 2025-05-11 Test Time: 02:47:14 Pat Name: JIGNESH ROOT Department: ER Room: 0291T B Gender: F Carton Stamper: : 1970 Requested By: EMERGENCY EMERGENCY Order Number: [id number] Reading MD: Prieto Martinez Measurements Intervals [place] Rate: 85 P: 41 NH: 165 QRS: -24 QRSD: 118 T: 162 QT: 386 QTc: 459 Interpretive Statements Sinus rhythm Probable left atrial enlargement LVH with IVCD and secondary repol abnrm Electronically Signed On 05-13-2025 17:31:21 PDT by Prieto Martinez Please click the below link to view image of tracing.
--- NOTE | 2025-05-12 14:39 | ECG ---
[facility] Test Date: 2025-05-11 Test Time: 01:24:30 Pat Name: JIGNESH ROOT Department: ER Room: [facility]1T B Gender: F Financial Aid: SASHA : 1970 Requested By: EMERGENCY EMERGENCY Order Number: [id number] Reading MD: Prieto Martinez Measurements Intervals [place] Rate: 93 P: 49 ND: 165 QRS: -26 QRSD: 116 T: 142 QT: 380 QTc: 473 Interpretive Statements Sinus rhythm Probable left atrial enlargement Incomplete left bundle branch block LVH with secondary repolarization abnormality Baseline wander in lead(s) V1 Electronically Signed On 05-13-2025 17:31:20 PDT by Prieto Martinez Please click the below link to view image of tracing.
--- NOTE | 2025-05-12 16:10 | DVHPNRES ---
Progress Note Date Seen: May 12, 2025 Resident Creating Document: LINDA TERRAZAS RESIDENT Medical Necessity Reason Pt with a Central, PICC or Fol: No Subjective Review of Systems This is a 54-year-old female with a history of DVT, heart failure with reduced ejection fraction, diabetes mellitus type 2, hypertension, cardiac arrest status post CPR in intubation for 11 days, rib fractures who presented to the ER with a chief complaint of chest pain which is pressure type, central, nonradiating, not related to exertion with palpable chest tenderness. She reports shortness of breaths, orthopnea, PND, reports taking multiple pillows under the head. She did not have any PCP. Past Medical history:DVT, heart failure with reduced ejection fraction, diabetes mellitus type 2, hypertension, cardiac arrest status post CPR in intubation for 11 days, rib fractures PCP none Home medications: Atorvastatin, Coreg, gabapentin, sacubitril valsartan, spironolactone Patient seen and examined at the bedside. Has basilar crackles, no pitting edema. Objective vital signs Vital Sign Date Time Temp Pulse Resp B/P (MAP) Pulse Ox O2 Delivery O2 Flow Rate FiO2 05/12/25 13:00 97.9 77 20 128/75 (92) 92 97.9 05/12/25 08:00 Room Air* 0 21 Total Intake and Output 05/11/25 05/11/25 05/12/25 15:00 23:00 07:00 Intake Total 905 ml Output Total 0 ml Balance 905 ml medications Current Medications Medications Dose Ordered Sig/Colby Route Start Time Stop Time Status Last Admin Dose Admin Atorvastatin Calcium 40 mg HS PO 05/11/25 22:00 05/11/25 21:43 40 MG Carvedilol 12.5 mg Q12HR PO 05/11/25 10:00 05/12/25 10:55 12.5 MG Sacubitril/ Valsartan 1 tab BID PO 05/11/25 10:00 05/12/25 10:54 1 TAB Spironolactone 25 mg DAILY PO 05/11/25 10:00 05/12/25 10:54 25 MG Nitroglycerin 0.4 mg Q5MINP PRN SL 05/11/25 09:15 Lorazepam 0.5 mg Q12HP PRN PO 05/11/25 09:15 Diagnostic Test (Pha) 1 strip ACHS 05/11/25 11:30 05/12/25 11:30 1 STRIP Insulin Human Regular ACHS SC 05/11/25 11:30 05/12/25 12:25 4 UNITS Dextrose 50 ml UD PRN IV 05/11/25 09:15 Acetaminophen 500 mg Q4HPRN PRN PO 05/12/25 08:45 Acetaminophen/ Hydrocodone Bitart 1 tab Q4HPRN PRN PO 05/12/25 08:45 05/12/25 12:18 1 TAB Morphine Sulfate 1 mg Q4HPRN PRN IV 05/12/25 08:45 UNV Aspirin 81 mg DAILY PO 05/12/25 10:00 05/12/25 10:54 81 MG Ceftriaxone Sodium 50 ml @ 100 mls/hr DAILY@ IV 05/13/25 09:00 Empaglifozin 10 mg DAILY PO 05/13/25 10:00 Furosemide 40 mg BIDD IV 05/12/25 18:00 Examination Patient lying in bed, in no acute distress General: Well-built, afebrile, palor, mucosae are moist Cardiovascular: Regular S1 and S2. No murmurs, gallops or rubs. No JVD elevation. No pedal edema Respiratory: Bibasilar crackles heard on auscultation, on room air. Abdomen: Soft, nontender, nondistended, normoactive bowel sounds, no rebound tenderness, no organomegaly, no masses Genitourinary: Deferred MSK/skin: Mobilizes 4 limbs. Skin is dry and warm Neurological: No motor, no sensitive deficits, normal speech. Pupils are isocoric and reactive. Psych/Mental Status: A/Ox3 laboratory and microbiology Laboratory Tests 05/11/25 01:19 Test 05/11/25 01:19 Range/Units Serum Glucose 162 H 74-106 mg/dL Labs and/or images reviewed: Labs reviewed by me, Image(s) reviewed by me Problem List/Assessment/Plan Problem List/Assessment/Plan Acute on chronic decompensated heart failure with reduced ejection fraction-NYHA class 3 Atypical chest pain ? Musculoskeletal Dilated/nonischemic ewrtuvnwxukkdt-zxpp-[id number] History of cardiac arrest status post intubation and mechanical ventilation Uncontrolled hypertension History of polysubstance use including methamphetamine Chronic nicotine dependence Cardiology consulted-recommended Lasix 40 mg IV twice daily, strict I&Os Cardiac diet Continue Coreg, Entresto, spironolactone, Jardiance Continue aspirin and atorvastatin Echo showed LV 30%, dilated LV, severe LV dysfunction, moderate MR. Left atrium Enlarged Right-sided rib fractures X-ray hip showed Nondisplaced right-sided rib fractures involving right ribs 4 through 7. Acute on chronic COPD exacerbation IV azithromycin daily Duo nebs q.6 hour IV Solu-Medrol 1 dose 40 mg Type 2 diabetes mellitus-A1c 8.6. Mild ISS Anemia likely normocytic Monitor H&H Recent history of DVT Doppler negative Patient denies taking Eliquis at home Vitamin-D deficiency Supplemented Plan discussed with patient in which all questions have been answered Goals of care discussed with the patient more than 20 minutes, full code status Case discussed with Dr. Mercedes Plan discussed with: Patient My Orders My Orders Orders - LINDA TERRAZAS Procedure Category Date Status Time Covid19 Antigen [facility] LAB 05/12/25 Logged 08:33 Rapid Influenza A&B LAB 05/12/25 Logged 08:33 Ribs Bilateral XY 05/12/25 Resulted 08:33 Acetaminophen Tab Or PHA 05/12/25 In Process Cap (Tylenol Tablet 08:45 Hydrocodone-Acet PHA 05/12/25 In Process 5/325mg Tab ([place] 08:45 Morphine Sulfate PHA 05/12/25 Pending Injection 08:45 LINDA TERRAZAS RESIDENT May 12, 2025 16:10
[2025-05-12] MEDS: ERGOCALCIFEROL 50,000 UNIT(1.25MG) CAP PO SCH (18:19)
[2025-05-12] MEDS: methylPREDNISolone SOD SUCC 40 MG/ML VL IV ONE (18:19)
[2025-05-12] MEDS: FUROSEMIDE 40 MG/4 ML VIAL IV SCH (18:22)
[2025-05-12] MEDS: ALBUTEROL SULF 2.5 MG/0.5ML(0.5%) NEB SOLN NEB SCH (19:28)
[2025-05-12] MEDS: IPRATROPIUM BROM 0.5 MG/2.5ML INH SOL NEB SCH (19:28)
[2025-05-12] MEDS: LORazepam 0.5 MG TAB PO PRN (21:19)
[2025-05-13] VITALS (14 sets, daily range): BP systolic 137–165; BP diastolic 71–92; PULSE 68–91; RESP 16–20; TEMP 36.6; O2SAT 92–100
[2025-05-13 07:17] LABS: Basophils # (auto) 0 10 ^3/uL (0-0.2); Eosinophils # (auto) 0 10 ^3/uL (0-0.8); Hemoglobin 10.6 g/dL (12.2-16.2); Mean Corpuscular Hgb Conc. 31.7 g/dL (32.0-36.0); Monocytes # (auto) 0.1 10 ^3/uL (0-1.3); Nucleated Red Blood Cells % 0.1 %; White Blood Cell 5.6 10^3/uL (4.4-10.8)
[2025-05-13 07:19] LABS: Basophils % (auto) 0.1 % (0.0-2.0); Hematocrit 33.4 % (36.0-46.0); Lymphocytes # (auto) 0.5 10 ^3/uL (0.4-5.4); Lymphocytes % (auto) 9.6 % (10.0-50.0); Mean Corpuscular Hemoglobin 26.3 pg (28.0-32.0); Mean Corpuscular Volume 82.8 fL (80.0-100.0); Monocytes % (auto) 1.1 % (0.0-12.0); Neutrophils % (auto) 89.2 % (37.0-80.0); Platelet Count (auto) 212 10^3/uL (140-450); Red Blood Cells 4.03 10^6/uL (4.0-5.20); Red Cell Distribution Width 17.8 % (11.8-14.3)
[2025-05-13 07:32] LABS: Anion Gap 9 (5-15); Carbon Dioxide 26 mmol/L (20-31); Chloride 99 mmol/L (98-107); Potassium 5.1 mmol/L (3.5-5.1)
[2025-05-13 07:34] LABS: Calcium 8.6 mg/dL (8.7-10.4); Sodium 134 mmol/L (136-145)
[2025-05-13 07:38] LABS: BUN/Creatinine Ratio 21.1 (10.0-20.0)
[2025-05-13 07:40] LABS: Blood Urea Nitrogen 27 mg/dL (9-23)
[2025-05-13 07:43] LABS: Glucose 502 mg/dL (74-106)
[2025-05-13] MEDS ORDERED: DEXTROSE (50%) 50ML SYRG IV PRN ×2 (07:45→22:45)
[2025-05-13] MEDS: InsuLIN REG 1unit/0.01ml Soln (100units/ml) SC SCH (08:00)
[2025-05-13] MEDS: ACCU-CHEK COMFORT CURVE STRIP VI SCH (08:00)
--- NOTE | 2025-05-13 08:45 | DVHPN2 ---
Consult Progress Note Date Seen: May 13, 2025 Subjective Review of Systems: CVS:Normal, RESPIRATORY:Abnormal, NEURO:Normal Other Systems: C/o cough Objective vital signs Vital Sign Date Time Temp Pulse Resp B/P (MAP) Pulse Ox O2 Delivery O2 Flow Rate FiO2 05/13/25 06:47 80 16 100 05/13/25 06:41 Nasal Cannula* 2 28 05/13/25 06:26 144/87 05/13/25 05:00 97.9 97.9 Total Intake and Output 05/12/25 05/12/25 05/13/25 15:00 23:00 07:00 Intake Total 540 ml 900 ml 400 ml Output Total 652 ml Balance 540 ml 248 ml 400 ml medications Current Medications Medications Dose Ordered Sig/Colby Route Start Time Stop Time Status Last Admin Dose Admin Atorvastatin Calcium 40 mg HS PO 05/11/25 22:00 05/12/25 21:19 40 MG Carvedilol 12.5 mg Q12HR PO 05/11/25 10:00 05/12/25 10:55 12.5 MG Sacubitril/ Valsartan 1 tab BID PO 05/11/25 10:00 05/12/25 21:18 1 TAB Spironolactone 25 mg DAILY PO 05/11/25 10:00 05/12/25 10:54 25 MG Nitroglycerin 0.4 mg Q5MINP PRN SL 05/11/25 09:15 Lorazepam 0.5 mg Q12HP PRN PO 05/11/25 09:15 05/12/25 21:19 0.5 MG Acetaminophen 500 mg Q4HPRN PRN PO 05/12/25 08:45 Acetaminophen/ Hydrocodone Bitart 1 tab Q4HPRN PRN PO 05/12/25 08:45 05/12/25 18:19 1 TAB Aspirin 81 mg DAILY PO 05/12/25 10:00 05/12/25 10:54 81 MG Empaglifozin 10 mg DAILY PO 05/13/25 10:00 Furosemide 40 mg BIDD IV 05/12/25 18:00 05/13/25 06:26 40 MG Azithromycin 250 ml @ 125 mls/hr DAILY IV 05/13/25 10:00 Albuterol 2.5 mg Q6HWA NEB 05/12/25 18:00 05/13/25 06:41 2.5 MG Ipratropium [place] 0.5 mg Q6HWA NEB 05/12/25 18:00 05/13/25 06:41 0.5 MG Ergocalciferol 50,000 unit Q7D PO 05/12/25 16:45 05/12/25 18:19 50,000 UNIT Diagnostic Test (Pha) 1 strip IQ4HR 05/13/25 08:00 Insulin Human Regular IQ4HR SC 05/13/25 08:00 Dextrose 50 ml UD PRN IV 05/13/25 07:45 Examination: LUNGS:Normal, CVS:Normal, NEURO:Normal laboratory and microbiology Laboratory Tests 05/13/25 05:37 Test 05/13/25 05:37 Range/Units Serum Glucose 502 *H 74-106 mg/dL Problem List/Assessment/Plan Problem List/Assessment/Plan Assessment (Dr. Martinez) * Non-cardiac chest Pain - Transthoracic echocardiogram revealed LVEF 30% with dilated LV and severe LV dysfunction. Troponins negative. EKG with nonspecific ST abnormality. ACS ruled out. * Acute on chronic decompensated HFrEF - GDMT for CHF. Transition to Lasix p.o. * Dilated/likely non-ischemic cardiomyopathy - admits to methamphetamine use with latest use three weeks ago after reported full cardiac arrest admission. * Hx cardiac arrest s/p CPR a month ago - continue telemetry monitoring. Awaiting medical records from [facility] in [place], [place] admission a month ago and [facility] in [place], [place] a month ago. * Uncontrolled HTN - continue current regimen, titrate as tolerated. * Recent hx of RLE DVT - venous US negative for acute DVT, on Elqiuis at home. * Qdk-fztkofc-yaxnafobh diabetes mellitus - management per primary team. * Polysubstance abuse - methamphetamines/cannabinoids. Strongly counseled on cessation. Follow-up with a primary frame operator within 3-4 weeks post-discharge. Patient is cardiac stable. There is no further cardiac work-up indicated at this time. Kindly call if in need to re-consult. Signing off. Thank you for allowing me to participate in the management of this patient. This medical document was created using an electronic medical record system with voice recognition software and computerized dictation system. Although this document has been carefully reviewed, there might still be some phonetic and typographical errors. Occasional wrong-word or ``sound-alike substitutions may have occurred due to the inherent limitations of voice recognition software. These areas are purely typographical due to imperfections of the software programs and do not reflect any compromise in the patient's medical care. Please read the chart carefully and recognize, using context, where these substitutions have occurred. Plan discussed with: Patient, Other Date of Service: May 13, 2025 Billing Provider: GINETTE DOMINGUEZ Cardiology Common Codes: [id number] INP/OBS CARE(Mod) GINETTE DOMINGUEZ May 13, 2025 08:45
[2025-05-13] MEDS ORDERED: cefTRIAXone 1GM/50ML D5W 50 ML IV SCH (09:00)
[2025-05-13] MEDS: EMPAGLIFLOZIN 10 MG TAB PO SCH (10:56)
[2025-05-13] MEDS: AZITHROMYCIN 500MG/ 250ML 250 ML IV SCH (10:57)
[2025-05-13] MEDS: SODIUM CHLORIDE 0.9% 250 ML IV ONE (11:45)
[2025-05-13] MEDS: APIXABAN 5 MG TAB PO SCH (12:56)
[2025-05-13] MEDS ORDERED: CARV6.2517 PO (16:25)
[2025-05-13] MEDS ORDERED: SPIR25TA PO (16:25)
[2025-05-13] MEDS ORDERED: ASPI-325 PO (16:25)
[2025-05-13] MEDS ORDERED: SACU1CAP2 PO (16:25)
[2025-05-13] MEDS ORDERED: UMEC1AER IN (16:25)
[2025-05-13] MEDS ORDERED: FURO1TAB33 PO (16:25)
[2025-05-13] MEDS ORDERED: GABA-1250 PO (16:25)
[2025-05-13] MEDS ORDERED: ALBUAER3 IN (16:25)
[2025-05-13] MEDS ORDERED: APIX5TAB PO (16:25)
[2025-05-13] MEDS ORDERED: ATOR-507 PO (16:25)
[2025-05-13] MEDS ORDERED: CHOL500021 OR (16:25)
--- NOTE | 2025-05-13 16:30 | DVHDSRES ---
Discharge Summary Date of Admission Resident Creating Document: LINDA TERRAZAS RESIDENT May 11, 2025 at 09:02 Date of Discharge: May 13, 2025 Labs/Diagnostic Data: Laboratory Results Test 05/13/25 15:54 05/13/25 05:37 05/12/25 09:58 05/11/25 09:20 POC Glucose 177 mg/dl (70-106) White Blood Count 5.6 10^3/uL (4.4-10.8) Red Blood Count 4.03 10^6/uL (4.0-5.20) Hemoglobin 10.6 g/dL (12.2-16.2) Hematocrit 33.4 % (36.0-46.0) Mean Corpuscular Volume 82.8 fL (80.0-100.0) Mean Corpuscular Hemoglobin 26.3 pg (28.0-32.0) Mean Corpuscular Hemoglobin Concent 31.7 g/dL (32.0-36.0) Red Cell Distribution Width 17.8 % (11.8-14.3) Platelet Count 212 10^3/uL (140-450) Mean Platelet Volume 9.2 fL (6.9-10.8) Neutrophils (%) (Auto) 89.2 % (37.0-80.0) Lymphocytes (%) (Auto) 9.6 % (10.0-50.0) Monocytes (%) (Auto) 1.1 % (0.0-12.0) Eosinophils (%) (Auto) 0.0 % (0.0-7.0) Basophils (%) (Auto) 0.1 % (0.0-2.0) Neutrophils # (Auto) 5.0 10 ^3/uL (1.6-8.6) Lymphocytes # (Auto) 0.5 10 ^3/uL (0.4-5.4) Monocytes # (Auto) 0.1 10 ^3/uL (0-1.3) Eosinophils # (Auto) 0 10 ^3/uL (0-0.8) Basophils # (Auto) 0 10 ^3/uL (0-0.2) Nucleated Red Blood Cells 0.1 % Sodium Level 134 mmol/L (136-145) Potassium Level 5.1 mmol/L (3.5-5.1) Chloride Level 99 mmol/L (98-107) Carbon Dioxide Level 26 mmol/L (20-31) Anion Gap 9 (5-15) Blood Urea Nitrogen 27 mg/dL (9-23) Creatinine 1.28 mg/dL (0.550-1.02) Glomerular Filtration Rate Calc 50 mL/min (>90) BUN/Creatinine Ratio 21.1 (10.0-20.0) Serum Glucose 502 mg/dL (74-106) Calcium Level 8.6 mg/dL (8.7-10.4) Hemoglobin A1c 8.6 % A1C (<5.7) Triglycerides Level 129 mg/dL (< 150) Cholesterol Level 151 mg/dL (< 200) LDL Cholesterol 90 mg/dL (< 100) HDL Cholesterol 39 mg/dL (40-59) Vitamin B12 Level 1031 pg/mL (211-911) Vitamin D 25-Hydroxy 29.1 ng/mL (30.0-100) Beta HCG, Quantitative 1.1 mIU/mL (1.5-4.2) D-Dimer, Quantitative 0.92 mg/L FEU (0.0-0.49) Troponin I High Sensitivity 13 ng/L (</=34) Test 05/11/25 02:11 05/11/25 01:19 05/11/25 01:03 Thyroid Stimulating Hormone (TSH) 2.85 uIU/mL (0.55-4.78) Prothrombin Time 10.3 sec (9.3-11.8) Prothrombin Time INR 0.97 (0.9-1.15) Activated Partial Thromboplast Time 27.2 SEC (24.5-34.5) Total Bilirubin 0.2 mg/dL (0.2-1.0) Aspartate Amino Transferase (AST) 24 U/L (<34) Alanine Aminotransferase (ALT) 21 U/L (7-40) Alkaline Phosphatase 72 U/L (46-116) B-Type Natriuretic Peptide 961.78 pg/mL (0-100) Total Protein 6.3 g/dL (5.7-8.2) Albumin 3.7 g/dL (3.2-4.8) Urine Color Light-yellow (Yellow) Urine Clarity Clear (Clear) Urine pH 7.0 (5.0-9.0) Urine Specific [place] 1.024 (1.001-1.035) Urine Protein 3+ (Negative) Urine Ketones Negative (Negative) Urine Blood 1+ /uL (Negative) Urine Nitrite Negative (Negative) Urine Bilirubin Negative (Negative) Urine Urobilinogen Normal mg/dL (Negative) Urine Leukocyte Esterase Negative /uL (Negative) Urine RBC 11 /hpf (0 - 4) Urine Microscopic WBC 11 /HPF (0-5) Urine Squamous Epithelial Cells Few /hpf (<5) Urine Bacteria None seen /hpf (None Seen) Urine Yeast (Budding) Occasional /hpf (None Urine Glucose 4+ mg/dL (Normal) Urine Opiates Screen Neg (NEGATIVE) Urine Fentanyl Screen Neg (NEGATIVE) Urine Barbiturates Screen Neg (NEGATIVE) Urine Phencyclidine Screen Neg (NEGATIVE) Urine Amphetamines Screen Neg (NEGATIVE) Urine Benzodiazepines Screen Neg (NEGATIVE) Urine Cocaine Screen Neg (NEGATIVE) Urine Cannabinoids Screen Neg (NEGATIVE) Other Laboratory Tests 05/13/25 05:37 Brief Hx & Hospital Course: This is a 54-year-old female with a history of DVT, heart failure with reduced ejection fraction, diabetes mellitus type 2, hypertension, cardiac arrest status post CPR in intubation for 11 days, rib fractures who presented to the ER with a chief complaint of chest pain which is pressure type, central, nonradiating, not related to exertion with palpable chest tenderness. She reports shortness of breaths, orthopnea, PND, reports taking multiple pillows under the head. She did not have any PCP. Past Medical history:DVT, heart failure with reduced ejection fraction, diabetes mellitus type 2, hypertension, cardiac arrest status post CPR in intubation for 11 days, rib fractures PCP none Home medications: Atorvastatin, Coreg, gabapentin, sacubitril valsartan, spironolactone During the hospitalization, patient was diagnosed with a acute on chronic decompensated heart failure with reduced ejection fraction-NYHA class 3, patient was started on Entresto, Coreg, spironolactone, Jardiance along with Lasix 40 mg IV daily. She also had wheezing on expiration, she was started on IV azithromycin and nebulized treatments. Echocardiogram was completed which showed LVEF 30%, dilated LV, severe LV dysfunction. Moderate MR. Left atrial enlargement. Cardiology was consulted for chest pain, recommended continuing medical management. Ruled out ACS. EKG and troponins were unremarkable. We continued cardiac diet at this time. Continued aspirin and atorvastatin daily. X-ray rib showed right sided nondisplaced rib fractures involving ribs 4-7. Patient's hemoglobin A1c was 8.6, she was started on mild ISS. Given the recent history of DVT and patient not taking anticoagulant, Eliquis was started and lower extremity Doppler ruled out DVT. Vitamin D2 was supplemented. Discharge plan: Continue Entresto, Coreg, spironolactone, Lasix Continue Eliquis 5 mg b.i.d. for the next 3 months Continue metformin 500 mg extended release twice daily Continue Anoro Ellipta inhaler 1 puff twice daily Continue albuterol inhaler as needed for shortness of breaths Follow up with primary care physician within 7 days Follow up with [employer] for spirometry Follow up with compliance reviewer for outpatient management Patient agreed to discharge planning. Side effects of medication were discussed with the patient during discharge. All concerns answered. Consults/Reason for consult Cardiology consulted for chest pain Operations or Procedures APPROVED REPORT EXAM: Two-dimensional and M-mode echocardiogram with Doppler and color Doppler. Blood Pressure: 130/70 mmHg INDICATION Chest Pain RISK FACTORS Height: 5'7", Weight: 167 DIMENSIONS LVDd 6.3 (3.8-5.7cm) LA (2D) 5.9 (1.9-4.0cm) Aortic Root 3.2 (2.0- 3.7cm) LVDs 5.7 (2.5-4.0cm) LA (MM) (1.9-4.0cm) Aortic Cusp Exc 1.9 (1.5- 2.0cm) EF (%) 20.0 (55-70%) Rt. Atrium 4.6 (1.9-4.0cm) Asc. Aorta 3.5 cm IVSd 1.1 (0.7-1.1cm) RV (D) 3.5 (1.8-2.4cm) PWd 1.2 (0.7-1.1cm) Mitral Valve Mitral Mitral Stenosis E wave 0.71m/s MV Mean GR. mmHg A wave 1.06m/s MV Peak GR. mmHg E/A ratio 0.7 2D MVA cm2 DECEL Time 178ms PRESS 1/2 Time ms Aortic Valve Aortic Valve Aortic Stenosis V1 0.74m/s AO Mean GR. 4mmHg V2 1.33m/s AO Peak GR. 7mmHg LVOT Diameter 2.5 (1.8-2.4cm) Doppler MARTY 2.73cm2 Pulmonic Valve V2 0.74m/s Tricuspid Valve TR Velocity 2.17m/s RVSP 22mmHg Conclusion lvef 30% dilated LV severe LV dysfunction moderate mitral regurg left atrium enlarged SIGNED BY: CORINE BLOOD MD SIGNED DATE/TIME: 05/12/25 1205 CC: Condition at Discharge: Stable Final Diagnosis/Problems List Acute on chronic decompensated heart failure with reduced ejection fraction-NYHA class 3 Acute on chronic COPD exacerbation Type 2 diabetes mellitus-A1c 8.6 Atypical chest pain likely musculoskeletal Likely dilated uiv[place]-wcne-woryrav History of cardiac arrest status post intubation and mechanical ventilation 1 month back History of DVT earlier this year-not taking anticoagulation at home-resumed anticoagulation Uncontrolled hypertension History of polysubstance use including methamphetamine Chronic nicotine dependence Right-sided rib fractures Anemia likely normocytic Vitamin-D deficiency Discharge Disposition: Home Discharge Instruct/Medications Diet: Consistent carbohydrate, Cardiac 2g Na,low cholest Activity: Light activity Follow Up/Referral: Follow up with compliance reviewer as outpatient within 7 days Follow up with pulmonology within 7 days for spirometry Follow up primary care physician within 7 days Medications: Albuterol inhaler as needed Anoro Ellipta inhaler twice daily Metformin 500 mg XL twice daily Resume home medications Discharge Statement: "Patient was advised to return to the ER or call 911 if any headaches, dizziness, shortness of breath, chest pain, abdominal pain, bleeding, fevers, or worsening of medical condition. Patient was counseled about treatment plan, medications, possible side effects, patientverbalized understanding. All questions were answered to the best of my ability. This discharge took greater then 30 minutes in planning, reviewing documentation, counseling the patient, and discussing with other team members." ASSESSMENT ASSESSMENT Assessment Acute on chronic decompensated heart failure with reduced ejection fraction-NYHA class 3 Acute on chronic COPD exacerbation Type 2 diabetes mellitus-A1c 8.6 LINDA TERRAZAS RESIDENT May 13, 2025 16:30
[2025-05-13] MEDS ORDERED: BLOO-169 XX (16:50)
[2025-05-13] MEDS ORDERED: LANC-347 XX (16:50)
[2025-05-13] MEDS: FUROSEMIDE 40 MG TAB PO SCH (18:00)
[2025-05-13] MEDS ORDERED: METF-370 PO (19:50)
[2025-05-13] MEDS ORDERED: EMPA1TAB PO (19:50)
[2025-05-13] MEDS ORDERED: NITROGLYCERIN 0.4 MG SL TAB SL PRN (22:15)
[2025-05-13] MEDS ORDERED: ACETAMINOPHEN 500 MG TAB or CAP PO PRN (22:30)
[2025-05-13] MEDS: APIXABAN 5 MG TAB PO ONE (22:51)
[2025-05-13] MEDS: CARVEDILOL 12.5 MG TAB PO ONE (22:51)
[2025-05-13] MEDS: ATORVASTATIN 20 MG TAB PO ONE (22:51)
[2025-05-13] MEDS: SACUBITRIL-VALSARTAN 24mg/26mg TAB PO ONE (22:52)
[2025-05-13] MEDS: HYDROcodone-ACET 5/325MG TAB PO PRN (22:53)
[2025-05-14] MEDS: ACCU-CHEK COMFORT CURVE STRIP VI SCH
[2025-05-14] MEDS: LORazepam 0.5 MG TAB PO PRN (01:40)
[2025-05-14] MEDS: ERGOCALCIFEROL 50,000 UNIT(1.25MG) CAP PO SCH (01:51)
[2025-05-14] MEDS: InsuLIN REG 1unit/0.01ml Soln (100units/ml) SC SCH (01:52)
[2025-05-14 05:00] VITALS: BP 153/86; PULSE 72; RESP 18; TEMP 97.6; O2SAT 94
[2025-05-14] MEDS: FUROSEMIDE 40 MG TAB PO SCH (05:35)
[2025-05-14 07:24] VITALS: PULSE 62; RESP 18; O2SAT 98
[2025-05-14] MEDS: ALBUTEROL SULF 2.5 MG/0.5ML(0.5%) NEB SOLN NEB SCH (07:24)
[2025-05-14] MEDS: IPRATROPIUM BROM 0.5 MG/2.5ML INH SOL NEB SCH (07:24)
[2025-05-14 07:32] VITALS: PULSE 66; RESP 16; O2SAT 100
[2025-05-14] MEDS ORDERED: INSUINJ37 SC (07:47)
[2025-05-14] MEDS ORDERED: INSU100I52 SC (07:47)
[2025-05-14] MEDS ORDERED: ISOP70MI2 EX (07:48)
[2025-05-14 08:00] VITALS: PULSE 74; RESP 20; O2SAT 96
[2025-05-14] MEDS: CARVEDILOL 12.5 MG TAB PO SCH (08:32)
[2025-05-14] MEDS: APIXABAN 5 MG TAB PO SCH (08:33)
[2025-05-14] MEDS: EMPAGLIFLOZIN 10 MG TAB PO SCH (08:33)
[2025-05-14] MEDS: SACUBITRIL-VALSARTAN 24mg/26mg TAB PO SCH (08:33)
[2025-05-14] MEDS: SPIRONOLACTONE 25 MG TAB PO SCH (08:33)
[2025-05-14] MEDS: ASPirin 81 mg TAB PO SCH (08:33)
[2025-05-14 08:48] VITALS: BP 154/86; PULSE 74; RESP 20; TEMP 96.9; O2SAT 96
[2025-05-14] MEDS: AZITHROMYCIN 500MG/ 250ML 250 ML IV SCH (09:03)
[2025-05-14] MEDS ORDERED: IPRATROPIUM BROM 0.5 MG/2.5ML INH SOL ONE (11:11)
[2025-05-14] MEDS ORDERED: ALBUTEROL SULF 2.5 MG/0.5ML(0.5%) NEB SOLN ONE (11:11)
[2025-05-14] MEDS ORDERED: BLOO-169 XX (17:42)
[2025-05-14] MEDS ORDERED: INSU100I45 IJ (17:42)
[2025-05-14] MEDS ORDERED: LANC-347 XX (18:09)
[2025-05-14] MEDS ORDERED: GLUC-145 SUBCUT (18:09)
[2025-05-14] MEDS ORDERED: INSU31MI32 XX (18:09)
[2025-05-14] MEDS ORDERED: BLOOMIS92 XX (18:09)
[2025-05-14] MEDS ORDERED: ATORVASTATIN 20 MG TAB PO SCH (22:00)
== END 2025-05-14 08:56 | disposition home or self-care (01) | DRG 194 ==
LOC: ER 01:14 → OVERFLOW 03:43 → TELE-WESTW 18:44 → UNDODISIN 05-13 19:18
PROVIDERS: ADMIT Student in an Organized Health Care Education/Training Program; ATTEND Student in an Organized Health Care Education/Training Program
DX: I11.0 Hypertensive heart disease with heart failure (principal); J96.01 Acute respiratory failure with hypoxia; E11.00 Type 2 diabetes mellitus with hyperosmolarity without nonketotic hyperglycemic-hyperosmolar coma (NKHHC); N17.9 Acute kidney failure, unspecified; S22.41XA Multiple fractures of ribs, right side, initial encounter for closed fracture; J44.1 Chronic obstructive pulmonary disease with (acute) exacerbation; R07.89 Other chest pain; I25.2 Old myocardial infarction; I50.43 Acute on chronic combined systolic (congestive) and diastolic (congestive) heart failure; I42.7 Cardiomyopathy due to drug and external agent; I42.8 Other cardiomyopathies; Z86.74 Personal history of sudden cardiac arrest; D64.9 Anemia, unspecified; E11.9 Type 2 diabetes mellitus without complications; E78.5 Hyperlipidemia, unspecified; F41.9 Anxiety disorder, unspecified; E55.9 Vitamin D deficiency, unspecified; T50.995A Adverse effect of other drugs, medicaments and biological substances, initial encounter; F15.10 Other stimulant abuse, uncomplicated; Z88.5 Allergy status to narcotic agent; Z87.891 Personal history of nicotine dependence; Z86.718 Personal history of other venous thrombosis and embolism; Z79.84 Long term (current) use of oral hypoglycemic drugs; X58.XXXA Exposure to other specified factors, initial encounter; Y93.89 Activity, other specified; Y92.89 Other specified places as the place of occurrence of the external cause; Y99.8 Other external cause status
CPT/HCPCS: 36415; 71045; 71111; 80048; 80053; 80061; 80307; 81001; 82306; 82607; 82962; 83036; 83880; 84443; 84484; 84702; 85025; 85379; 85610; 85730; 93005; 93306; 93970; 94640; 96374; 99291; G0378; J1815; J2405

== ENCOUNTER 2025-05-27 12:48 | Inpatient (IN) | payer MEDICAID, OTHER ==
[~2025-05-27] VITALS: Ht 170.2 cm; Wt 81.5 kg
[~2025-05-27 12:48] MED LIST: ALBUAER3 IN; APIX5TAB PO; ASPI-325 PO; ATOR-507 PO; BLOO-169 XX; BLOOMIS92 XX; CARV6.2517 PO; CHOL500021 OR; FURO1TAB33 PO; GABA-1250 PO; GLUC-145 SUBCUT; INSU100I45 IJ; INSU31MI32 XX; INSUINJ37 SC; ISOP70MI2 EX; LANC-347 XX; SACU1CAP2 PO; SPIR25TA PO; UMEC1AER IN
--- NOTE | 2025-05-27 13:03 | ED.PDOC ---
History of Present Illness HPI Comments 54 year old female with a History of IN, HTN, DM, High Lipids, COPD, and CHF presents to the ED for the c/c of Substernal Chest pain. Pt states that her CP started at approx 0800 this am, and has since found no alleviating factors. Pt does note of a previous of N/ and a previous IN that took place 2x months ago. Pt EKG was noted to be 81 NSR with a LBBB, Dr. Gutierres was notified. No other symptoms or modifying factors reported at this time. Patient is alert and oriented x4 and has a stable gait. Chief Complaint: Chest Pain Time Seen by MD: 12:58 Reviewed Notes: Nurses Notes, Medications, Allergies Allergies: Coded Allergies: Morphine (Verified Allergy, Intermediate, 05/11/25) Metformin (Unverified Adverse Reaction, Intermediate, cold through lower back , 05/14/25) Patient states that she feels a coldness throuhout her lower back Home Meds Active Scripts Insulin Pen Needle (Bd Ultrafine Short Pen Ne) 31GX5/16 Mis, UNITS XX ACHS, #100 0 Refills Prov:ARMIN HENSLEY MD 05/14/25 Lancets (Freestyle Lancets) Lancets Mis, UNIT XX ACHS, #120 0 Refills Prov:ARMIN HENSLEY MD 05/14/25 Glucose Blood (Freestyle Test Strips) [place], 1 UNITS SUBCUT ACHS, #120 MISC 0 Refills Prov:ARMIN HENSLEY MD 05/14/25 Blood Glucose Monitoring Suppl (Freestyle Lite Blood Gluc) Lite Mis, UNIT XX ACHS, #1 0 Refills Prov:ARMIN HENSLEY MD 05/14/25 Blood Glucose Monitoring Suppl (EASY TOUCH GLUCOSE MONITO) Monitor Kit, UNIT XX ACHS, #1 0 Refills Prov:ARMIN HENSLEY MD 05/14/25 Insulin Regular (Human) (Novolin R Flexpen) 100 Unit/Ml Inj, 2-14 UNIT IJ TIDWM PRN for 30 Days, #1 INJ 0 Refills Blood Sugar RangeLispro Insulin Instructions Less than 70Hold all insulin 70-1500 units 151-1742 units 175-1994 units 200-2246 units 225-2498 units 250-65358 units 275-72502 units Greater than 300 Administer 14 units Prov:ARMIN HENSLEY MD 05/14/25 Isopropyl Alcohol (Isopropyl Alcohol Wipes) 70 % Mis, 70 % EX ACHS for 30 Days, #120 MISC 0 Refills Prov:LINDA TERRAZAS 05/14/25 Insulin Glargine (Lantus Solostar) 100 Unit/Ml Inj, 10 UNIT SC HS for 30 Days, # 5 INJ 0 Refills Prov:LINDA TERRAZAS 05/14/25 Lancets (Freestyle Lancets) Lancets Mis, EA XX DAILY, #120 0 Refills Fasting Prov:LINDA TERRAZAS 05/13/25 Blood Glucose Monitoring Suppl (EASY TOUCH GLUCOSE MONITO) Monitor Kit, EA XX DAILY, #1 0 Refills international 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 Prov:LINDA TERRAZAS 05/13/25 Albuterol Sulfate (VENTOLIN MDI) 90 Mcg Ih, 90 MCG IN DAILY for 30 Days, #1 INH Prov:VICENTA TERRAZASER 05/13/25 Cholecalciferol (VITAMIN D) 5,000 Unit Tab, 5000 UNIT OR DAILY for 30 Days, #30 TAB [facility] 05/13/25 Aspirin (Aspirin Low Dose) 81 Mg Tab, 81 MG PO DAILY for 30 Days, #30 TAB Prov:VICENTA TERRAZASER 05/13/25 Umeclidinium-Vilanterol (Anoro Ellipta 62.5-25 Mcg/INH) 1 Aer Aer, 1 AER IN BID for 30 Days, #1 AER 0 Refills Prov:VICENTA TERRAZASER 05/13/25 Furosemide (Lasix) 20 Mg Tb, 1 TAB PO BID for 30 Days, #60 TAB 3 Refills Prov[facility] 05/13/25 Atorvastatin Calcium (Lipitor) 40 Mg Tab, 1 TAB PO QPM for 30 Days, #30 TAB 1 Refill 40 mg daily Prov[facility] 05/13/25 Gabapentin (Gabapentin) 300 Mg Cap, 1 CAP PO TID for 30 Days, #90 CAP 5 Refills [facility] 05/13/25 Sacubitril-Valsartan (Entresto 15-16 mg) 1 Cap Cap, 1 CAP PO BID for 30 Days, #60 CAP Prov:[facility] 05/13/25 Apixaban Base (ELIQUIS) 5 Mg Tab, 5 MG PO BID for 30 Days, #60 TAB Prov:VICENTA TERRAZASER RESIDENT 05/13/25 Carvedilol (Coreg) 6.25 Mg Tab, 6.25 MG PO BID for 30 Days, #60 TAB Prov:MKLINDA [facility] 05/13/25 Spironolactone (Aldactone) 25 Mg Tab, 1 TAB PO DAILY for 30 Days, #30 TAB 3 Refills Prov:VICENTA TERRAZASSHER WILLIS 05/13/25 Information Source: Patient Mode of Arrival: Ambulatory Severity: Moderate Timing: Hours Duration: Since onset, Hours Prehospital treatment: None Past Medical History PAST MEDICAL HISTORY: CHF, COPD, DM, High Lipids, HTN, [place] Surgical History: Denies all surgeries 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 Family History Family History: Family hx of DM, Family hx of heart shagufta Social History Smoker: Non-Smoker, Quit Greater Than 1 Year, Secondhand Alcohol: Denies ETOH Use Drugs: Denies Drug Use Lives In: Home Constitutional: denies: chills, diaphoresis, fatigue, fever, malaise, sweats, weakness, others EENTM: denies: blurred vision, double vision, ear bleeding, ear discharge, ear drainage, ear pain, ear ringing, eye pain, eye redness, hearing loss, mouth pain, mouth swelling, nasal discharge, nose bleeding, nose congestion, nose pain, photophobia, tearing, throat pain, throat swelling, voice changes, others Respiratory: denies: cough, hemoptysis, orthopnea, SOB at rest, shortness of breath, SOB with excertion, stridor, wheezing, others Cardiovascular: reports: chest pain; denies: dizzy spells, diaphoresis, Dyspnea on exertion, edema, irregular heart beat, left arm pain, lightheadedness, palpitations, PND, syncope, others Gastrointestinal: reports: nausea; denies: abdomen distended, abdominal pain, blood streaked bowels, constipated, diarrhea, dysphagia, difficulty swallowing, hematemesis, melena, poor appetite, poor fluid intake, rectal bleeding, rectal pain, vomiting, others Genitourinary: denies: abnormal vagina bleeding, burning, dyspareunia, dysuria, flank pain, frequency, hematuria, incontinence, pain, , vagina discharge, urgency, others Neurological: denies: dizziness, fainting, headache, left sided numbness, left sided weakness, numbness, paresthesia, pre-existing deficit, right sided numbness, right sided weakness, seizure, speech problems, tingling, tremors, weakness, others Musculoskeletal: denies: back pain, gout, joint pain, joint swelling, muscle pain, muscle stiffness, neck pain, others Integumetry: denies: bruises, change in color, change in hair/nails, dryness, laceration, lesions, lumps, rash, wounds, others Allergic/Immunocompromised: denies: Difficulty Healing, Frequent Infections, Hives, Itching, others Hematologic/Lymphatic: denies: anemia, blood clots, easy bleeding, easy bruising, swollen glands, others Endocrine: denies: excessive hunger, excessive sweating, excessive thirst, excessive urination, flushing, intolerance to cold, intolerance to heat, unexplained weight gain, unexplained weight loss, others Psychiatric: denies: anxiety, bipolar disorder, depression, hopeless, panic disorder, schizophrenia, sleepless, suicidal, others All Other Systems: Reviewed and Negative Physical Exam General Appearance: Moderate Distress HEENT: Normal ENT Inspection, Pharynx Normal, TMs Normal Neck: Full Range of Motion, Non-Tender, Normal, Normal Inspection Respiratory: Chest Non-Tender, Lungs Clear, No Accessory Muscle Use, No Respiratory Distress, Normal Breath Sounds Cardiovascular: No Edema, No JVD, No Murmur, No Gallop, Normal Peripheral Pulses, Regular Rate/Rhythm Breast Exam: Deferred Gastrointestinal: No Organomegaly, Non Tender, No Pulsatile Mass, Normal Bowel Sounds, Soft Genitalia: Deferred Pelvic: Deferred Rectal: Deferred Extremities: No calf tenderness, Normal capillary refill, No pedal edema Musculoskeletal : Apperance: Normal Neurologic: Alert, plaster helper II-XII nml as Tested, Motor Weakness, Normal Affect, Normal Mood, No Sensory Deficits Cerebellar Function: Normal Reflexes: Normal Skin: Dry, Pallor, Warm Lymphatic: No Adenopathy Was a procedure done? Was a procedure done?: No EKG EKG : Pulse Rate (adult): 81 Taylor: Normal Cardiac Rhythm: NSR Block: LBBB Hypertrophy: None ST: Normal Differential Dx Considerations may include: ACS, IN, generalized weakness, electrolyte imbalance X-Ray, Labs, Meds, VS Vital Signs Date Time Temp Pulse Resp B/P (MAP) Pulse Ox O2 Delivery O2 Flow Rate FiO2 05/27/25 14:11 99 18 131/81 05/27/25 13:52 93 05/27/25 13:50 93 18 99 Room Air 05/27/25 13:50 99.0 93 18 131/87 (102) 99 99.0 05/27/25 13:03 81 05/27/25 12:52 81 05/27/25 12:50 97.8 84 17 149/92 (111) 98 97.8 Lab Test 05/27/25 13:55 05/27/25 13:49 05/27/25 13:05 Range/Units Troponin I High Sensitivity 14 15 </=34 ng/L Urine Color Colorless Yellow Urine Clarity Clear Clear Urine pH 5.5 5.0-9.0 Urine Specific [place] 1.016 1.001-1.035 Urine Protein 2+ H Negative Urine Ketones Negative Negative Urine Blood 1+ H Negative /uL Urine Nitrite Negative Negative Urine Bilirubin Negative Negative Urine Urobilinogen Normal Negative mg/dL Urine Leukocyte Esterase Negative Negative /uL Urine RBC 2 0 - 4 /hpf Urine Microscopic WBC 13 H 0-5 /HPF Urine Squamous Epithelial Cells Few <5 /hpf Urine Bacteria Few H None Seen /hpf Urine Glucose 4+ H Normal mg/dL White Blood Count 7.6 4.4-10.8 10^3/uL Red Blood Count 4.18 4.0-5.20 10^6/uL Hemoglobin 11.3 L 12.2-16.2 g/dL Hematocrit 34.8 L 36.0-46.0 % Mean Corpuscular Volume 83.1 80.0-100.0 fL Mean Corpuscular Hemoglobin 27.0 L 28.0-32.0 pg Mean Corpuscular Hemoglobin Concent 32.5 32.0-36.0 g/dL Red Cell Distribution Width 18.9 H 11.8-14.3 % Platelet Count 304 140-450 10^3/uL Mean Platelet Volume 8.7 6.9-10.8 fL Neutrophils (%) (Auto) 65.2 37.0-80.0 % Lymphocytes (%) (Auto) 21.1 10.0-50.0 % Monocytes (%) (Auto) 6.1 0.0-12.0 % Eosinophils (%) (Auto) 6.5 0.0-7.0 % Basophils (%) (Auto) 1.1 0.0-2.0 % Neutrophils # (Auto) 5.0 1.6-8.6 10 ^3/uL Lymphocytes # (Auto) 1.6 0.4-5.4 10 ^3/uL Monocytes # (Auto) 0.5 0-1.3 10 ^3/uL Eosinophils # (Auto) 0.5 0-0.8 10 ^3/uL Basophils # (Auto) 0.1 0-0.2 10 ^3/uL Nucleated Red Blood Cells 0.1 % Sodium Level 140 136-145 mmol/L Potassium Level 5.3 H 3.5-5.1 mmol/L Chloride Level 106 98-107 mmol/L Carbon Dioxide Level 27 20-31 mmol/L Anion Gap 7 5-15 Blood Urea Nitrogen 31 H 9-23 mg/dL Creatinine 1.09 H 0.550-1.02 mg/dL Glomerular Filtration Rate Calc 60 >90 mL/min BUN/Creatinine Ratio 28.4 H 10.0-20.0 Serum Glucose 222 H 74-106 mg/dL Calcium Level 9.9 8.7-10.4 mg/dL B-Type Natriuretic Peptide 447.14 0-100 pg/mL Current Medications Medications (Trade) Dose Ordered Sig/Colby Route Start Time Stop Time Status Last Admin Hydromorphone HCl (Dilaudid Injection) 0.5 mg ONCE ONCE IV 05/27/25 13:00 05/27/25 13:01 DC 05/27/25 14:11 Ondansetron HCl (Zofran) 4 mg ONCE ONCE IV 05/27/25 13:00 05/27/25 13:01 DC 05/27/25 14:11 IMPRESSION: No acute cardiopulmonary disease. The patient was given Dilaudid 0.5 mg IV push The patient was given Zofran 4 mg IV push The BNP is elevated at 447 The CBC and chemistry panel are within normal limits except for an elevated potassium of 5.3 The BUN is 31 and the creatinine is 1.09 The troponin level is within normal range The patient is still having persistent chest pain The patient is being admitted this time The patient's diagnosis acute coronary syndrome Images Reviewed?: Images reviewed and evaluated by me Time of 1ST Reevaluation: 13:29 Reevaluation 1ST: Unchanged Patient Education/Counseling: Diagnosis, Treatment, Prognosis Family Education/Counseling: No Family Present SEPSIS Sepsis Screen Physician Orders Troponin-I Hs (05/27/25 15:54) Electrocardigram (05/27/25 12:54) Electrocardigram (05/27/25 13:54) Electrocardigram (05/27/25 15:54) Heplock Iv (05/27/25 12:59) Degree Clerk (05/27/25 12:59) Blood Pressure (05/27/25 12:59) Pulse Oximetry (05/27/25 12:59) Chest Two Views Routine (05/27/25 12:59) Vital Signs Date Time Temp Pulse Resp B/P (MAP) Pulse Ox O2 Delivery O2 Flow Rate FiO2 05/27/25 14:11 99 18 131/81 05/27/25 13:52 93 05/27/25 13:50 93 18 99 Room Air 05/27/25 13:50 99.0 93 18 131/87 (102) 99 99.0 05/27/25 13:03 81 05/27/25 12:52 81 05/27/25 12:50 97.8 84 17 149/92 (111) 98 97.8 Laboratory Tests Test 05/27/25 13:05 White Blood Count 7.6 10^3/uL (4.4-10.8) Medications Medications Dose Ordered Sig/Colby Route Start Time Stop Time Status Last Admin Dose Admin Hydromorphone HCl 0.5 mg ONCE ONCE IV 05/27/25 13:00 05/27/25 13:01 DC 05/27/25 14:11 Ondansetron HCl 4 mg ONCE ONCE IV 05/27/25 13:00 05/27/25 13:01 DC 05/27/25 14:11 Departure 1 Departure Time of Disposition: 14:28 Impression: Primary Impression: Acute coronary syndrome Additional Impression: Hyperkalemia Disposition: 09 ADMITTED INPATIENT Admit to: Tele Condition: Fair Critical Care Note Critical Care Time?: Yes (35 min-critical care time only) Stability Stability form required: Yes Unstable for transfer: Telemetry monitoring (Telemetry monitoring required), ED Physician Assesment (Clinical assesment) Heart Score Heart Score: Heart Score Response (Comments) Value History Highly Suspicious 2 EKG Repolarization Disturb 1 Age 45-64 1 Risk Factors >3 or Hx ASHD 2 Troponin Normal limit 0 Total 6 I personally scribed for MARCIE GERARD MD ([email or web address]) on 05/27/25 at 13:03. Electronically submitted by Erick Benjamin ([email or web address]). I personally scribed for MARCIE GERARD MD ([email or web address]) on 05/27/25 at 13:53. Electronically submitted by Erick Benjamin ([email or web address]). MARCIE GERARD MD May 27, 2025 13:03
[2025-05-27 13:28] LABS: Hematocrit 34.8 % (36.0-46.0); Hemoglobin 11.3 g/dL (12.2-16.2); Mean Corpuscular Hemoglobin 27.0 pg (28.0-32.0); Mean Corpuscular Volume 83.1 fL (80.0-100.0); Nucleated Red Blood Cells % 0.1 %
--- NOTE | 2025-05-27 13:38 | DVH ---
EXAM: XY CHEST TWO VIEWS ROUTINE CLINICAL HISTORY: cp COMPARISON: None TECHNIQUE: Frontal and lateral view of the chest was obtained FINDINGS: Lines and Tubes: None Lungs: No focal consolidation. Pleura: No effusion. No pneumothorax. Cardiomediastinal contours: Unremarkable Bones: No acute osseous abnormality. IMPRESSION: No acute cardiopulmonary disease.
[2025-05-27 13:43] LABS: Chloride 106 mmol/L (98-107); Sodium 140 mmol/L (136-145)
[2025-05-27 13:44] LABS: Anion Gap 7 (5-15); Carbon Dioxide 27 mmol/L (20-31)
[2025-05-27 13:45] LABS: Calcium 9.9 mg/dL (8.7-10.4)
[2025-05-27 13:46] LABS: Potassium 5.3 mmol/L (3.5-5.1)
[2025-05-27 13:49] LABS: BUN/Creatinine Ratio 28.4 (10.0-20.0)
[2025-05-27 13:52] LABS: Blood Urea Nitrogen 31 mg/dL (9-23); Glucose 222 mg/dL (74-106)
[2025-05-27] MEDS: HYDROmorphone HCL 2 MG/ML VL/or syr IV ONE (14:11)
[2025-05-27] MEDS: ONDANSETRON HCL 4 MG/2 ML VIAL IV ONE (14:11)
[2025-05-27 14:21] LABS: Urine Protein, UAD 2+ (Negative)
[2025-05-27] MEDS ORDERED: DEXTROSE (50%) 50ML SYRG IV PRN (16:45)
[2025-05-27] MEDS ORDERED: DOCUSATE SOD 100 MG CAP PO PRN (16:45)
[2025-05-27] MEDS ORDERED: MORPHINE SULFATE INJ 2 MG/ml SYRG IV PRN (17:45)
[2025-05-27] MEDS ORDERED: NITROGLYCERIN 0.4 MG SL TAB SL PRN (17:45)
--- NOTE | 2025-05-27 17:45 | DVHHP2 ---
History of Present Illness Reason for Visit: Acute coronary syndrome History of Present Illness The patient is a 54-year-old female with past medical history of COPD, CHF, DM, [place], hyperlipidemia, and hypertension who presented to [facility] ED with complaint of chest pain. Patient reports she has been experiencing substernal chest pain, rating 9/10 numeric scale, getting worse that prompted this visit. Patient was seen and evaluated in the ED, laboratory data shows WBC 7.6, platelets 304, sodium 140, potassium 5.3, BUN 31, creatinine 1.09, glucose 222, calcium 9.9, troponin 14, BNP 447.14, blood pressure 132/80, heart rate 80, temperature 99.0 F, O2 saturation 99% on room air. Chest x-ray show no acute cardiopulmonary disease. Patient was given aspirin 325 mg p.o. x1, please see medication orders section in the computer. On my assessment, patient denied chest pain, no headache, no dizziness, no diaphoresis, no shortness of breath, no nausea, no vomiting, no fever, no chills. Patient was admitted for further evaluation and medical management. Past Medical History CHF, COPD, DM, High Lipids, HTN, [place] Past Surgical History Denies all surgeries Family History Reviewed, noncontributory to the management of this case. Past Social History The patient lives at home, denies smoking, alcohol or illicit drugs abuse. Review of Systems Constitutional: No: Fever, Chills, Sweats, Weakness, Malaise, Other Eyes: No: Pain, Vision change, Conjunctivae inflammation, Eyelid inflammation, Other, Redness ENT: No: Ear pain, Ear discharge, Nose pain, Nose discharge, Nose congestion, Mouth pain, Mouth swelling, Throat pain, Throat swelling, Other Respiratory: No: Cough, Dry, Shortness of breath, SOB with excertion, Wheezing, Hemoptysis, Pleuritic Pain, Sputum, Wheezing, Other Cardiovascular: Chest Pain; No: Palpitations, Orthopnea, Paroxysmal Noc. Dyspnea, Edema, Lt Headedness, Other Gastrointestinal: No: Nausea, Vomiting, Abdominal Pain, Diarrhea, Constipation, Melena, Hematochezia, Other Genitourinary: No Dysuria, No Frequency, No Incontinence, No Hematuria, No Retention, No Other Musculoskeletal: No: other, neck pain, shoulder pain, arm pain, back pain, hand pain, leg pain, foot pain Skin: No: Rash, Lesions, Jaundice, Bruising, Other Neurological: No: Weakness, Numbness, Incoordination, Change in speech, Confusion, Seizures, Other Allergies: Coded Allergies: Morphine (Verified Allergy, Intermediate, 05/11/25) Metformin (Unverified Adverse Reaction, Intermediate, cold through lower back , 05/14/25) Patient states that she feels a coldness throuhout her lower back Medications Current Medications Medications Dose Ordered Sig/Colby Route Start Time Stop Time Status Last Admin Dose Admin Aspirin 81 mg DAILY PO 05/28/25 10:00 Atorvastatin Calcium 20 mg HS PO 05/27/25 22:00 Carvedilol 6.25 mg Q12HR PO 05/27/25 22:00 Furosemide 20 mg DAILY IV 05/28/25 10:00 Diagnostic Test (Pha) 1 strip ACHS 05/27/25 17:00 Insulin Human Regular HS SC 05/27/25 22:00 Insulin Human Regular AC SC 05/27/25 17:00 Dextrose 50 ml UD PRN IV 05/27/25 16:45 Sodium Chloride 10 ml Q8HR IV 05/27/25 22:00 Acetaminophen/ Hydrocodone Bitart 1 tab Q4HP PRN PO 05/27/25 16:45 UNV Ondansetron HCl 4 mg Q4HP PRN IV 05/27/25 16:45 Docusate Sodium 100 mg BIDPRN PRN PO 05/27/25 16:45 Acetaminophen 650 mg Q6HP PRN PO 05/27/25 16:45 UNV Exam Vital Signs Vital Signs Date Time Temp Pulse Resp B/P (MAP) Pulse Ox O2 Delivery O2 Flow Rate FiO2 05/27/25 16:41 88 20 137/78 05/27/25 16:41 97.6 97 97.6 05/27/25 13:50 Room Air General Appearance: Alert, Oriented X3, Cooperative, No acute distress HEENT: Atraumatic, PERRLA, EOMI, Mucous membr. moist/pink Respiratory: Clear to auscultation, Normal air movement Cardiovascular: Regular rate, Normal S2, No murmurs Abdominal: Normal bowel sounds, Soft, No tenderness, No hepatospenomegaly, No masses Extremities: No clubbing, No cyanosis, No edema, Normal pulses, No tenderness/swelling Skin: No rashes, No breakdown, No significant lesion Neuro: Normal gait, Normal speech, Strength at 5/5 X4 ext, Normal tone, Sensation intact, Cranial nerves 3-12 NL, Reflexes 2+ Psych/Mental Status: Mental status NL, Mood NL Labs/Xrays Labs Test 05/27/25 16:00 05/27/25 13:49 05/27/25 13:05 Range/Units Troponin I High Sensitivity 13 </=34 ng/L Urine Color Colorless Yellow Urine Clarity Clear Clear Urine pH 5.5 5.0-9.0 Urine Specific [place] 1.016 1.001-1.035 Urine Protein 2+ H Negative Urine Ketones Negative Negative Urine Blood 1+ H Negative /uL Urine Nitrite Negative Negative Urine Bilirubin Negative Negative Urine Urobilinogen Normal Negative mg/dL Urine Leukocyte Esterase Negative Negative /uL Urine RBC 2 0 - 4 /hpf Urine Microscopic WBC 13 H 0-5 /HPF Urine Squamous Epithelial Cells Few <5 /hpf Urine Bacteria Few H None Seen /hpf Urine Glucose 4+ H Normal mg/dL White Blood Count 7.6 4.4-10.8 10^3/uL Red Blood Count 4.18 4.0-5.20 10^6/uL Hemoglobin 11.3 L 12.2-16.2 g/dL Hematocrit 34.8 L 36.0-46.0 % Mean Corpuscular Volume 83.1 80.0-100.0 fL Mean Corpuscular Hemoglobin 27.0 L 28.0-32.0 pg Mean Corpuscular Hemoglobin Concent 32.5 32.0-36.0 g/dL Red Cell Distribution Width 18.9 H 11.8-14.3 % Platelet Count 304 140-450 10^3/uL Mean Platelet Volume 8.7 6.9-10.8 fL Neutrophils (%) (Auto) 65.2 37.0-80.0 % Lymphocytes (%) (Auto) 21.1 10.0-50.0 % Monocytes (%) (Auto) 6.1 0.0-12.0 % Eosinophils (%) (Auto) 6.5 0.0-7.0 % Basophils (%) (Auto) 1.1 0.0-2.0 % Neutrophils # (Auto) 5.0 1.6-8.6 10 ^3/uL Lymphocytes # (Auto) 1.6 0.4-5.4 10 ^3/uL Monocytes # (Auto) 0.5 0-1.3 10 ^3/uL Eosinophils # (Auto) 0.5 0-0.8 10 ^3/uL Basophils # (Auto) 0.1 0-0.2 10 ^3/uL Nucleated Red Blood Cells 0.1 % Sodium Level 140 136-145 mmol/L Potassium Level 5.3 H 3.5-5.1 mmol/L Chloride Level 106 98-107 mmol/L Carbon Dioxide Level 27 20-31 mmol/L Anion Gap 7 5-15 Blood Urea Nitrogen 31 H 9-23 mg/dL Creatinine 1.09 H 0.550-1.02 mg/dL Glomerular Filtration Rate Calc 60 >90 mL/min BUN/Creatinine Ratio 28.4 H 10.0-20.0 Serum Glucose 222 H 74-106 mg/dL Calcium Level 9.9 8.7-10.4 mg/dL B-Type Natriuretic Peptide 447.14 0-100 pg/mL PATIENT: JIGNESH ROOT ACCT: [id number] UNIT: [id number] : 1970 LOC: ER ROOM / BED: / AGE / SEX: 54 / F ADM STATUS: REG ER SERVICE 1259 ORDERING PHYSICIAN: MARCIE GERARD MD PROCEDURE(s): CXR2 - CHEST TWO VIEWS ROUTINE REASON: cp ORDER NUMBER(s): [id number], ACCESSION NUMBER(s): [id number] EXAM: XY CHEST TWO VIEWS ROUTINE CLINICAL HISTORY: cp COMPARISON: None TECHNIQUE: Frontal and lateral view of the chest was obtained FINDINGS: Lines and Tubes: None Lungs: No focal consolidation. Pleura: No effusion. No pneumothorax. Cardiomediastinal contours: Unremarkable Bones: No acute osseous abnormality. IMPRESSION: No acute cardiopulmonary disease. Assessment/Plan Assessment/Plan Acute coronary syndrome Hyperkalemia Diabetes mellitus with hyperglycemia Plan 1. Admit to telemetry unit 2. Breathing treatment 3. Pain control management 4. Management of fluids and electrolytes 5. Consultation for hospitalist 6. Diagnostic tests chest x-ray 7. DVT prophylaxis-on aspirin 8. Repeat labs CBC, CMP in a.m. 9. Continue with current medical management 10. Treatment plan discussed with patient and RN. Patient verbalized understanding. Plan discussed with: Patient, Other (RN) My Orders Orders - OKPAN,ERICA O DNP Procedure Category Date Status Time Aspirin Tablet PHA 05/28/25 In Process 10:00 Atorvastatin (Lipitor) PHA 05/27/25 In Process 22:00 Carvedilol Tablet PHA 05/27/25 In Process (Coreg Tablet) 22:00 Furosemide Injection PHA 05/28/25 In Process (Lasix Injection) 10:00 Consistent DIET 05/27/25 Transmitted Carb(Ccho)Diabetes Dinner Glucose Blood PHA 05/27/25 In Process (Accu-Chek Comfort 17:00 Insulin R (Human) PHA 05/27/25 In Process (Insulin R) 22:00 Insulin R (Human) PHA 05/27/25 In Process (Insulin R) 17:00 Dextrose 50% Syringe PHA 05/27/25 In Process 16:45 Allergies SHELLI 05/27/25 In Process 16:38 Code Status CODE 05/27/25 Transmitted 16:38 Sodium Chloride Lock PHA 05/27/25 In Process (Saline Lock Ns) 22:00 Oxygen Per Hour RT 05/27/25 Transmitted 16:38 Hydrocodone-Acet PHA 05/27/25 Logged 5/325mg Tab ([place] 16:45 Ondansetron Hcl PHA 05/27/25 In Process (Zofran) 16:45 Docusate Sodium PHA 05/27/25 In Process Capsule (Colace 16:45 Complete Blood Count LAB 05/28/25 Verified 04:00 Comprehensive LAB 05/28/25 Verified Metabolic Panel 04:00 Condition: Serious SHELLI 05/27/25 In Process 16:38 Acetaminophen Tablet PHA 05/27/25 Logged (Tylenol Tablet) 16:45 Bedrest With Bathroom SHELLI 05/27/25 In Process Privileg 16:38 Sequential SHELLI 05/27/25 In Process Compression Device Admit ADMIT 05/27/25 Verified 17:43 Nitroglycerin PHA 05/27/25 Verified Sublingual (Ntrostat 17:45 Morphine Sulfate PHA 05/27/25 Verified Injection 17:45 Stat Ekg For Chest [facility] 05/27/25 Verified Pain 17:43 Notify Of Changes [facility] 05/27/25 Verified From Base 17:43 Binding Machine Operator For [facility] 05/27/25 Verified 24 Hours 17:43 Emergency Dysrhythmia [facility] 05/27/25 Verified Protocol 17:43 Rhythm Strips Once [facility] 05/27/25 Verified Every Shift 17:43 Oxygen By Nasal RT 05/27/25 Verified Cannula 17:43 Problem List: (1) Acute coronary syndrome (2) Hyperkalemia (3) Diabetes mellitus with hyperglycemia Date of Service: May 27, 2025 Billing Provider: ERICA CASTILLO DNP Common Visit Codes: [id number] INP/OBS CARE (HIGH) ERICA CASTILLO DNP May 27, 2025 17:45
[2025-05-27] MEDS: ACCU-CHEK COMFORT CURVE STRIP VI SCH (18:02)
[2025-05-27] MEDS: InsuLIN REG 1unit/0.01ml Soln (100units/ml) SC SCH ×2 (18:03→21:29)
[2025-05-27] MEDS: HYDROcodone-ACET 5/325MG TAB PO PRN (19:50)
[2025-05-27 20:19] VITALS: BP 137/87; PULSE 71; RESP 16; TEMP 97.7; O2SAT 97
[2025-05-27 21:02] VITALS: BP 120/72; PULSE 72; RESP 16; TEMP 98.1; O2SAT 96
[2025-05-27] MEDS: CARVEDILOL 3.125 MG TAB PO SCH (21:28)
[2025-05-27] MEDS: ATORVASTATIN 20 MG TAB PO SCH (21:28)
[2025-05-27] MEDS: SODIUM CHLOR 0.9% PF (SALINE LOCK) 10ML VIAL/SYR IV SCH (21:32)
[2025-05-28] VITALS (9 sets, daily range): BP systolic 119–151; BP diastolic 71–93; PULSE 66–87; RESP 14–18; TEMP 97.7–98; O2SAT 93–97
[2025-05-28] MEDS: SODIUM ZIRCONIUM CYCL 10 GM PAK PO ONE (00:06)
--- NOTE | 2025-05-28 01:35 | ECG ---
[facility] Test Date: 2025-05-27 Test Time: 13:52:14 Pat Name: JIGNESH ROOT Department: ER Room: [address] [place] [address] Gender: F Administrative Assistant Data Entry: LEROY : 1970 Requested By: MARCIE GERARD Order Number: [id number] Reading MD: Prieto Martinez Measurements Intervals [place] Rate: 93 P: 55 MO: 169 QRS: -26 QRSD: 119 T: 158 QT: 392 QTc: 488 Interpretive Statements Sinus rhythm Probable left atrial enlargement Incomplete left bundle branch block LVH with secondary repolarization abnormality Borderline prolonged QT interval Electronically Signed On 05-30-2025 9:48:57 PDT by Prieto Martinez Please click the below link to view image of tracing.
--- NOTE | 2025-05-28 01:36 | ECG ---
[facility] Test Date: 2025-05-27 Test Time: 15:49:06 Pat Name: JIGNESH ROOT Department: ER Room: [address] [place] [address] Gender: F After School Counselor: LEROY : 1970 Requested By: MARCIE GERARD Order Number: [id number] Reading MD: Prieto Martinez Measurements Intervals [place] Rate: 80 P: 48 NJ: 174 QRS: -22 QRSD: 115 T: 97 QT: 399 QTc: 461 Interpretive Statements Sinus rhythm LAE, consider biatrial enlargement LVH with IVCD and secondary repol abnrm Electronically Signed On 05-30-2025 9:49:40 PDT by Prieto Martinez Please click the below link to view image of tracing.
[2025-05-28 05:59] LABS: Hematocrit 33.4 % (36.0-46.0); Hemoglobin 10.7 g/dL (12.2-16.2); Mean Corpuscular Hemoglobin 26.8 pg (28.0-32.0); Mean Corpuscular Volume 84.0 fL (80.0-100.0); Nucleated Red Blood Cells % 0.1 %
[2025-05-28 06:09] LABS: Alanine Aminotransferase 16 U/L (7-40); Albumin 3.7 g/dL (3.2-4.8); Alkaline Phosphatase 75 U/L (46-116); Anion Gap 7 (5-15); BUN/Creatinine Ratio 30.5 (10.0-20.0); Calcium 9.0 mg/dL (8.7-10.4); Carbon Dioxide 28 mmol/L (20-31); Chloride 105 mmol/L (98-107); Potassium 4.9 mmol/L (3.5-5.1); Sodium 140 mmol/L (136-145); Total Protein 6.1 g/dL (5.7-8.2)
[2025-05-28 06:20] LABS: Bilirubin, Total 0.2 mg/dL (0.2-1.0); Blood Urea Nitrogen 40 mg/dL (9-23); Glucose 176 mg/dL (74-106)
[2025-05-28] MEDS: FUROSEMIDE 20 MG/2 ML VIAL IV SCH (08:51)
[2025-05-28] MEDS: ACETAMINOPHEN 325 MG TAB PO PRN (13:00)
--- NOTE | 2025-05-28 20:53 | DVHPN2 ---
Subjective Seen in bed today, having some chest pain Reviewed: H&P, Labs Changes from previous H/P or p: No Changes Eyes: No Pain, No Vision change, No Conjunctivae inflammation, No Eyelid inflammation, No Other, No Redness ENT: No Ear pain, No Ear discharge, No Nose pain, No Nose discharge, No Nose congestion, No Mouth pain, No Mouth swelling, No Throat pain, No Throat swelling, No Other Cardiovascular: Chest Pain; No Palpitations, No Orthopnea, No Paroxysmal Noc. Dyspnea, No Edema, No Lt Headedness, No Other Respiratory: No Cough, No Dry, No Shortness of breath, No SOB with excertion, No Wheezing, No Hemoptysis, No Pleuritic Pain, No Sputum, No Other Gastrointestinal: No Nausea, No Vomiting, No Abdominal Pain, No Diarrhea, No Constipation, No Melena, No Hematochezia, No Other Genitourinary: No Dysuria, No Frequency, No Incontinence, No Hematuria, No Retention, No Other Musculoskeletal: No other, No neck pain, No shoulder pain, No arm pain, No back pain, No hand pain, No leg pain, No foot pain Skin: No Rash, No Lesions, No Jaundice, No Bruising, No Other Objective Vitals Vital Signs Date Time Temp Pulse Resp B/P (MAP) Pulse Ox O2 Delivery O2 Flow Rate FiO2 05/28/25 16:51 97.8 75 16 140/75 (96) 95 97.8 05/28/25 14:00 Room Air* 0 21 Intake/Output Intake and Output 05/28/25 07:00 Intake Total 250 ml Balance 250 ml Intake Oral 250 ml # Voids 2 General Appearance: Alert, Oriented X3 HEENT: Atraumatic Lungs: Clear to auscultation Cardiovascular: Regular rate, Normal S1, Normal S2 Abdomen: Normal bowel sounds Medications Current Medications Medications Dose Ordered Sig/Colby Route Start Time Stop Time Status Last Admin Dose Admin Aspirin 81 mg DAILY PO 05/28/25 10:00 05/28/25 08:50 81 MG Atorvastatin Calcium 20 mg HS PO 05/27/25 22:00 05/27/25 21:28 20 MG Carvedilol 6.25 mg Q12HR PO 05/27/25 22:00 05/28/25 08:50 6.25 MG Furosemide 20 mg DAILY IV 05/28/25 10:00 05/28/25 08:51 20 MG Diagnostic Test (Pha) 1 strip ACHS 05/27/25 17:00 05/28/25 17:22 1 STRIP Insulin Human Regular HS SC 05/27/25 22:00 05/27/25 21:29 3 UNITS Insulin Human Regular AC SC 05/27/25 17:00 05/28/25 17:23 3 UNITS Dextrose 50 ml UD PRN IV 05/27/25 16:45 Sodium Chloride 10 ml Q8HR IV 05/27/25 22:00 05/28/25 12:36 10 ML Acetaminophen/ Hydrocodone Bitart 1 tab Q4HP PRN PO 05/27/25 16:45 05/28/25 08:55 1 TAB Ondansetron HCl 4 mg Q4HP PRN IV 05/27/25 16:45 Docusate Sodium 100 mg BIDPRN PRN PO 05/27/25 16:45 Acetaminophen 650 mg Q6HP PRN PO 05/27/25 16:45 05/28/25 13:00 650 MG Nitroglycerin 0.4 mg Q5MINP PRN SL 05/27/25 17:45 Morphine Sulfate 2 mg Q30M PRN IV 05/27/25 17:45 UNV Laboratory Results Laboratory Tests 05/28/25 04:18 Chemistry Test 05/28/25 04:18 Albumin 3.7 g/dL (3.2-4.8) Calcium Level 9.0 mg/dL (8.7-10.4) Total Protein 6.1 g/dL (5.7-8.2) LFT Test 05/28/25 04:18 Alanine Aminotransferase (ALT) 16 U/L (7-40) Alkaline Phosphatase 75 U/L (46-116) Aspartate Amino Transferase (AST) 16 U/L (13-40) Total Bilirubin 0.2 mg/dL (0.2-1.0) Urinalysis Test 05/27/25 13:49 Urine Color Colorless (Yellow) Urine Clarity Clear (Clear) Urine pH 5.5 (5.0-9.0) Urine Specific [place] 1.016 (1.001-1.035) Urine Protein 2+ (Negative) H Urine Ketones Negative (Negative) Urine Blood 1+ /uL (Negative) H Urine Nitrite Negative (Negative) Urine Bilirubin Negative (Negative) Urine Urobilinogen Normal mg/dL (Negative) Urine Leukocyte Esterase Negative /uL (Negative) Urine RBC 2 /hpf (0 - 4) Urine Microscopic WBC 13 /HPF (0-5) H Urine Squamous Epithelial Cells Few /hpf (<5) Urine Bacteria Few /hpf (None Seen) H Urine Glucose 4+ mg/dL (Normal) H Microbiology Microbiology Date/Time Source Procedure Growth Status 05/27/25 21:10 Nose MRSA Screen - Final Complete Assessment/Plan Assessment/Plan Acute coronary syndrome Hyperkalemia Diabetes mellitus with hyperglycemia Hyperkalemia resolved troponins negative x3 Continue aspirin, staitn, carvedilol IV lasix>change to oral Dispo: DC tomorrow if chest pain better Plan discussed with: Patient Date of Service: May 28, 2025 Billing Provider: DOMINIQUE ANGELES MD Common Visit Codes: [id number] INP/OBS CARE(HIGH) DOMINIQUE ANGELES MD May 28, 2025 20:53
[2025-05-28] MEDS ORDERED: INSU100I54 SC (22:50)
[2025-05-28] MEDS ORDERED: INSLANTI SC (22:50)
[2025-05-28] MEDS ORDERED: EMPA1TAB PO (22:50)
[2025-05-29] VITALS (9 sets, daily range): BP systolic 129–168; BP diastolic 75–96; PULSE 70–117; RESP 17–18; TEMP 36.4; O2SAT 92–98
[2025-05-29] MEDS: FUROSEMIDE 20 MG TAB PO SCH (08:29)
[2025-05-29] MEDS ORDERED: ALPRAZolam 0.25 MG TAB PO PRN (13:15)
[2025-05-29] MEDS: ALPRAZolam 0.25 MG TAB PO ONE (13:43)
[2025-05-29] MEDS ORDERED: ALPR0.5T PO (14:57)
[2025-05-29] MEDS ORDERED: BACL5TAB2 PO (14:57)
[2025-05-29] MEDS ORDERED: PANT40TA2 PO (14:57)
--- NOTE | 2025-05-29 15:11 | DVHDS2 ---
Discharge Summary Date of Admission May 27, 2025 at 17:43 Date of Discharge: May 29, 2025 Labs/Diagnostic Data: Laboratory Results Test 05/28/25 20:59 05/28/25 04:18 05/27/25 16:00 05/27/25 13:49 POC Glucose 226 mg/dl (70-106) White Blood Count 6.6 10^3/uL (4.4-10.8) Red Blood Count 3.98 10^6/uL (4.0-5.20) Hemoglobin 10.7 g/dL (12.2-16.2) Hematocrit 33.4 % (36.0-46.0) Mean Corpuscular Volume 84.0 fL (80.0-100.0) Mean Corpuscular Hemoglobin 26.8 pg (28.0-32.0) Mean Corpuscular Hemoglobin Concent 31.9 g/dL (32.0-36.0) Red Cell Distribution Width 19.3 % (11.8-14.3) Platelet Count 280 10^3/uL (140-450) Mean Platelet Volume 8.6 fL (6.9-10.8) Neutrophils (%) (Auto) 58.5 % (37.0-80.0) Lymphocytes (%) (Auto) 25.5 % (10.0-50.0) Monocytes (%) (Auto) 8.3 % (0.0-12.0) Eosinophils (%) (Auto) 6.8 % (0.0-7.0) Basophils (%) (Auto) 0.9 % (0.0-2.0) Neutrophils # (Auto) 3.9 10 ^3/uL (1.6-8.6) Lymphocytes # (Auto) 1.7 10 ^3/uL (0.4-5.4) Monocytes # (Auto) 0.6 10 ^3/uL (0-1.3) Eosinophils # (Auto) 0.4 10 ^3/uL (0-0.8) Basophils # (Auto) 0.1 10 ^3/uL (0-0.2) Nucleated Red Blood Cells 0.1 % Sodium Level 140 mmol/L (136-145) Potassium Level 4.9 mmol/L (3.5-5.1) Chloride Level 105 mmol/L (98-107) Carbon Dioxide Level 28 mmol/L (20-31) Anion Gap 7 (5-15) Blood Urea Nitrogen 40 mg/dL (9-23) Creatinine 1.31 mg/dL (0.550-1.02) Glomerular Filtration Rate Calc 48 mL/min (>90) BUN/Creatinine Ratio 30.5 (10.0-20.0) Serum Glucose 176 mg/dL (74-106) Calcium Level 9.0 mg/dL (8.7-10.4) Total Bilirubin 0.2 mg/dL (0.2-1.0) Aspartate Amino Transferase (AST) 16 U/L (13-40) Alanine Aminotransferase (ALT) 16 U/L (7-40) Alkaline Phosphatase 75 U/L (46-116) Total Protein 6.1 g/dL (5.7-8.2) Albumin 3.7 g/dL (3.2-4.8) Troponin I High Sensitivity 13 ng/L (</=34) Urine Color Colorless (Yellow) Urine Clarity Clear (Clear) Urine pH 5.5 (5.0-9.0) Urine Specific [place] 1.016 (1.001-1.035) Urine Protein 2+ (Negative) Urine Ketones Negative (Negative) Urine Blood 1+ /uL (Negative) Urine Nitrite Negative (Negative) Urine Bilirubin Negative (Negative) Urine Urobilinogen Normal mg/dL (Negative) Urine Leukocyte Esterase Negative /uL (Negative) Urine RBC 2 /hpf (0 - 4) Urine Microscopic WBC 13 /HPF (0-5) Urine Squamous Epithelial Cells Few /hpf (<5) Urine Bacteria Few /hpf (None Seen) Urine Glucose 4+ mg/dL (Normal) Test 05/27/25 13:05 B-Type Natriuretic Peptide 447.14 pg/mL (0-100) Other Laboratory Tests 05/28/25 04:18 Brief Hx & Hospital Course: History of Present Illness The patient is a 54-year-old female with past medical history of COPD, CHF, DM, AK, hyperlipidemia, and hypertension who presented to [facility] ED with complaint of chest pain. Patient reports she has been experiencing substernal chest pain, rating 9/10 numeric scale, getting worse that prompted this visit. Summary: Vital signs stable on admit. EKG has old changes of ST depression lateral leads V4 to 6. chest pain is relieved with anxiety control. She also has symptoms concerning for GERD.. Troponins negative, EKG old changes, chest pain resolves. Chest x-ray show no acute cardiopulmonary disease. Patient was given aspirin 325 mg p.o. x1. cardiology was not consulted. This is ruled out ACS. Chest pain likely due to GERD. Vital signs stable. Ready for discharge as per plan below.. Diagnosis: Chest pain, likely GERD GERD ruled out Acute coronary syndrome Anxiety Panic attacks Hyperkalemia, resolved Diabetes mellitus with hyperglycemia history of cardiac arrest Chronic CHF Hypertension Hyperlipidemia COPD ?history of AK, unknown interventions medication noncompliance history of methamphetamine abuse Plan - take Protonix 40 mg daily. follow up PCP - diet with low salt and low carbohydrates - take Xanax 0.25 (half tablet ), can take up to twice daily as needed. follow up with PCP and set up PCP to follow up on long-term treatment of anxiety - take baclofen 5 mg twice daily for next 5 days - Continue other home medications not mentioned above - set up PCP. Follow up with PCP to have discharge review, and manage anxiety and chronic conditions. Condition at Discharge: Fair Final Diagnosis/Problems List Chest pain, likely GERD GERD ruled out Acute coronary syndrome Anxiety Panic attacks Hyperkalemia, resolved Diabetes mellitus with hyperglycemia history of cardiac arrest Chronic CHF Hypertension Hyperlipidemia COPD ?history of AK, unknown interventions medication noncompliance history of methamphetamine abuse Discharge Disposition: Home Discharge Instruct/Medications Diet: Consistent carbohydrate, Cardiac 2g Na,low cholest Diet comment: See below Activity: No Restrictions, As Tolerated Follow Up/Referral: See below Medications: See below Scheduled Albuterol Sulfate (Ventolin Mdi), 90 MCG IN DAILY Apixaban Base (Eliquis), 5 MG PO BID Aspirin (Aspirin Low Dose), 81 MG PO DAILY Atorvastatin Calcium (Lipitor), 1 TAB PO QPM Baclofen (Baclofen), 5 MG PO BID Carvedilol (Coreg), 6.25 MG PO BID Cholecalciferol (Vitamin D), 5,000 UNIT OR DAILY Empagliflozin (Jardiance), 1 TAB PO DAILY, (Reported) Furosemide (Lasix), 1 TAB PO BID Gabapentin (Gabapentin), 1 CAP PO TID Glucose Blood (Freestyle Test Strips), 1 UNITS SUBCUT ACHS Insulin Glargine (Lantus Solostar), 10 UNIT SC HS Insulin Glargine (Lantus), 5 UNIT SC TID, (Reported) Insulin Lispro (Insulin Lispro Kwikpen), 10 UNIT SC ONCE, (Reported) Isopropyl Alcohol (Isopropyl Alcohol Wipes), 70 % EX ACHS Pantoprazole Sodium Sesquihydr (Protonix), 40 MG PO DAILY Sacubitril-Valsartan (Entresto 15-16 mg), 1 CAP PO BID Spironolactone (Aldactone), 1 TAB PO DAILY Umeclidinium-Vilanterol (Anoro Ellipta 62.5-25 Mcg/INH), 1 AER IN BID Scheduled PRN Alprazolam (Xanax), 0.5 TAB PO BID PRN Insulin Regular (Human) (Novolin R Flexpen), 2-14 UNIT IJ TIDWM PRN Durable Medical Equipment Blood Glucose Monitoring Suppl (Easy Touch Glucose Monito), EA XX DAILY, (DME) Blood Glucose Monitoring Suppl (Easy Touch Glucose Monito), UNIT XX ACHS, (DME) Blood Glucose Monitoring Suppl (Freestyle Lite Blood Gluc), UNIT XX ACHS, (DME) Insulin Pen Needle (Bd Ultrafine Short Pen Ne), UNITS XX ACHS, (DME) Lancets (Freestyle Lancets), EA XX DAILY, (DME) Lancets (Freestyle Lancets), UNIT XX ACHS, (DME) Discharge Statement: "Patient was advised to return to the ER or call 911 if any headaches, dizziness, shortness of breath, chest pain, abdominal pain, bleeding, fevers, or worsening of medical condition. Patient was counseled about treatment plan, medications, possible side effects, patientverbalized understanding. All questions were answered to the best of my ability. This discharge took greater then 30 minutes in planning, reviewing documentation, counseling the patient, and discussing with other team members." Date of Service: May 29, 2025 Billing Provider: ARMIN HENSLEY MD Common Visit Codes: [id number] DISCH DAY >30min ARMIN HENSLEY MD May 29, 2025 15:11
[2025-05-29] MEDS: ONDANSETRON HCL 4 MG/2 ML VIAL IV PRN (17:40)
== END 2025-05-29 20:30 | disposition home or self-care (01) | DRG 243 ==
LOC: ER 12:48 → OVERFLOW 17:43 → TELE-EAST 05-28 13:30
PROVIDERS: ADMIT Student in an Organized Health Care Education/Training Program; ATTEND Student in an Organized Health Care Education/Training Program
DX: K21.9 Gastro-esophageal reflux disease without esophagitis (principal); Z86.74 Personal history of sudden cardiac arrest; I50.32 Chronic diastolic (congestive) heart failure; I11.0 Hypertensive heart disease with heart failure; E11.65 Type 2 diabetes mellitus with hyperglycemia; J44.9 Chronic obstructive pulmonary disease, unspecified; E87.5 Hyperkalemia; E78.5 Hyperlipidemia, unspecified; F41.0 Panic disorder [episodic paroxysmal anxiety]; Z91.148 Patient's other noncompliance with medication regimen for other reason; Z83.3 Family history of diabetes mellitus; I25.2 Old myocardial infarction; Z88.5 Allergy status to narcotic agent
CPT/HCPCS: 36415; 71046; 80048; 80053; 81001; 82962; 83880; 84484; 85025; 87081; 93005; 99291; G0378; J1815; J2405

== ENCOUNTER 2025-07-12 19:55 | Emergency (ER) | payer MEDICAID ==
[~2025-07-12] VITALS: Ht 170.2 cm; Wt 77.1 kg
[~2025-07-12 19:55] MED LIST changes: +ALPR0.5T PO; +BACL5TAB2 PO; +EMPA1TAB PO; +INSLANTI SC; +INSU100I54 SC; +PANT40TA2 PO
[2025-07-12] MEDS ORDERED: DOXY-286 PO (20:38)
--- NOTE | 2025-07-12 20:38 | ED.PDOC ---
History of Present Illness(SKN HPI Comments 54-year-old female presents to the ED chief complaint open wound to left great toe. Patient states history of diabetes and neuropathy. Notes did not notice how she got the wound or when she got it but she did not notice it two days ago. Noted linear cracked laceration to dorsal aspect of left 4th digit at the base. Erythema no noted drainage strength sensory motion intact cap refill less than 3 seconds. Patient states her blood sugars at home have been around 150 currently being seen and treated by her primary care provider. Denies numbness, weakness, fever, chills, nausea, vomiting or known injury. Chief Complaint: Wound Check Time Seen by MD: 20:05 History of Present Illness: Nurses Notes, Medications, Allergies Allergies: Coded Allergies: Morphine (Verified Allergy, Intermediate, 05/11/25) Metformin (Unverified Adverse Reaction, Intermediate, cold through lower back , 05/14/25) Patient states that she feels a coldness throuhout her lower back Home Meds Active Scripts Doxycycline Hyclate (DOXYCYCLINE HYCLATE) 100 Mg Tab, 1 TAB PO BID for 7 Days, #14 TAB Prov:KAYE MILLER [employer] 07/12/25 Pantoprazole Sodium Sesquihydr (Protonix) 40 Mg Tab, 40 MG PO DAILY for 30 Days, #30 TAB 0 Refills Prov:ARMIN HENSLEY MD 05/29/25 Baclofen (Baclofen) 5 Mg Tab, 5 MG PO BID for 5 Days, #10 TAB 0 Refills Prov:ARMIN HENSLEY MD 05/29/25 Alprazolam (Xanax) 0.5 Mg Tb, 0.5 TAB PO BID PRN for 7 Days, #7 TAB 0 Refills Prov:ARMIN HENSELY MD 05/29/25 Insulin Pen Needle (Bd Ultrafine Short Pen Ne) 31GX5/16 Mis, UNITS XX ACHS, #100 0 Refills Prov:ARMIN HENSLEY MD 05/14/25 Lancets (Freestyle Lancets) Lancets Mis, UNIT XX ACHS, #120 0 Refills Prov:ARMIN HENSLEY MD 05/14/25 Glucose Blood (Freestyle Test Strips) [place], 1 UNITS SUBCUT ACHS, #120 MISC 0 Refills Prov:ARMIN HENSLEY MD 05/14/25 Blood Glucose Monitoring Suppl (Freestyle Lite Blood Gluc) Lite Mis, UNIT XX ACHS, #1 0 Refills Prov:ARMIN HENSLEY MD 05/14/25 Blood Glucose Monitoring Suppl (EASY TOUCH GLUCOSE MONITO) Monitor Kit, UNIT XX ACHS, #1 0 Refills Prov:ARMIN HENSLEY MD 05/14/25 Insulin Regular (Human) (Novolin R Flexpen) 100 Unit/Ml Inj, 2-14 UNIT IJ TIDWM PRN for 30 Days, #1 INJ 0 Refills Blood Sugar RangeLispro Insulin Instructions Less than 70Hold all insulin 70-1500 units 151-1742 units 175-1994 units 200-2246 units 225-2498 units 250-40656 units 275-98280 units Greater than 300 Administer 14 units Prov:ARMIN HENSLEY MD 05/14/25 Isopropyl Alcohol (Isopropyl Alcohol Wipes) 70 % Mis, 70 % EX ACHS for 30 Days, #120 MISC 0 Refills Prov:LINDA TERRAZAS 05/14/25 Insulin Glargine (Lantus Solostar) 100 Unit/Ml Inj, 10 UNIT SC HS for 30 Days, #5 INJ 0 Refills Prov:LINDA TERRAZAS 05/14/25 Lancets (Freestyle Lancets) Lancets Mis, EA XX DAILY, #120 0 Refills Fasting Prov:LINDA TERRAZAS 05/13/25 Blood Glucose Monitoring Suppl (EASY TOUCH GLUCOSE MONITO) Monitor Kit, EA XX DAILY, #1 0 Refills manager perioperative Prov:LINDA TERRAZAS 05/13/25 Albuterol Sulfate (VENTOLIN MDI) 90 Mcg Ih, 90 MCG IN DAILY for 30 Days, #1 INH Prov:LINDA TERRAZAS 05/13/25 Cholecalciferol (VITAMIN D) 5,000 Unit Tab, 5000 UNIT OR DAILY for 30 Days, #30 TAB Prov:LINDA TERRAZAS 05/13/25 Aspirin (Aspirin Low Dose) 81 Mg Tab, 81 MG PO DAILY for 30 Days, #30 TAB Prov:LINDA TERRAZAS 05/13/25 Umeclidinium-Vilanterol (Anoro Ellipta 62.5-25 Mcg/INH) 1 Aer Aer, 1 AER IN BID for 30 Days, #1 AER 0 Refills Prov:LINDA TERRAZAS [facility] 05/13/25 Furosemide (Lasix) 20 Mg Tb, 1 TAB PO BID for 30 Days, #60 TAB 3 [facility] 05/13/25 Atorvastatin Calcium (Lipitor) 40 Mg Tab, 1 TAB PO QPM for 30 Days, #30 TAB 1 Refill 40 mg daily [facility] 05/13/25 Gabapentin (Gabapentin) 300 Mg Cap, 1 CAP PO TID for 30 Days, #90 CAP 5 [facility]ills [facility] 05/13/25 Sacubitril-Valsartan (Entresto 15-16 mg) 1 Cap Cap, 1 CAP PO BID for 30 Days, #60 CAP [facility] 05/13/25 Apixaban Base (ELIQUIS) 5 Mg Tab, 5 MG PO BID for 30 Days, #60 TAB [facility] 05/13/25 Carvedilol (Coreg) 6.25 Mg Tab, 6.25 MG PO BID for 30 Days, #60 TAB [facility] 05/13/25 Spironolactone (Aldactone) 25 Mg Tab, 1 TAB PO DAILY for 30 Days, #30 TAB 3 [facility]ills [facility] 05/13/25 Reported Medications Insulin Glargine (Lantus) 100 Unit/Ml Inj, 5 UNIT SC TID, INJ 05/28/25 Insulin Lispro (Insulin Lispro Kwikpen) 100 Unit/Ml Inj, 10 UNIT SC ONCE 05/28/25 Empagliflozin (Jardiance) 10 Mg Tab, 1 TAB PO DAILY 05/28/25 Mode of Arrival: Ambulatory Past Medical History PAST MEDICAL HISTORY: CHF, COPD, DM, High Lipids, HTN, MD Surgical History: Denies all surgeries SPONGE PACKER History: Denies all SPONGE PACKER Hx Family History Family History: Family hx of DM, Family hx of heart shagufta Social History Smoker: Non-Smoker, Quit Greater Than 1 Year, Secondhand Alcohol: Denies ETOH Use Drugs: Denies Drug Use Lives In: Home All Other Systems: Reviewed and Negative (see hpi ) Physical Exam General Appearance: No Apparent Distress, Normal HEENT: Pharynx Normal Neck: Full Range of Motion, Non-Tender Respiratory: Lungs Clear, No Respiratory Distress, Normal Breath Sounds Cardiovascular: No Edema, No JVD, No Murmur, No Gallop, Normal Peripheral Pulses, Regular Rate/Rhythm Breast Exam: Deferred Gastrointestinal: No Organomegaly, Non Tender, No Pulsatile Mass, Normal Bowel Sounds, Soft Genitalia: Deferred Pelvic: Deferred Rectal: Deferred Extremities: Normal capillary refill, Normal range of motion, No pedal edema Musculoskeletal : Location: Left Extremity Location: Great Toe (Noted linear laceration a proximally 2.5 cm base of dorsal aspect of 1st digit no noted bleeding trace erythema no noted drainage. Poor skin hygiene bilateral feet with overgrowth of nails calluses and dry skin.) Apperance: Normal Neurologic: Alert, health worker II-XII nml as Tested, No Motor Deficits, Normal Affect, Normal Mood, No Sensory Deficits Cerebellar Function: Normal Reflexes: Normal Skin: Dry, Normal Color, Warm Lymphatic: No Adenopathy Was a procedure done? Was a procedure done?: No Differential Diagnosis (INTG) Differential Diagnosis: Abrasion, Cellulitis, Laceration, Puncture Wound Differential Diagnosis: Abscess X-Ray, Labs, Meds, VS Vital Signs Date Time Temp Pulse Resp B/P (MAP) Pulse Ox O2 Delivery O2 Flow Rate FiO2 07/12/25 20:49 98.6 88 19 107/65 (79) 96 98.6 07/12/25 20:49 88 19 96 Room Air 07/12/25 19:57 97.8 101 18 125/81 94 97.8 Current Medications Medications (Trade) Dose Ordered Sig/Colby Route Start Time Stop Time Status Last Admin Doxycycline Monohydrate (Vibramycin Tablet) 100 mg ONCE ONCE PO 07/12/25 20:45 07/12/25 20:46 DC 07/12/25 20:48 X-Ray, Labs, Meds, VS Comment Wound cleansed and dressed. Patient given 1st dose of doxy. Trial of doxycycline twice daily x7 days, advised take medication as prescribed side effects were discussed. Advised patient on the importance of maintaining bilateral feet hygiene and nail care. Advised to follow up with her PCP and have referral for Podiatry. Follow up PCP in 2-3 days. ER return precautions were given patient indicates understanding and agrees with discharge plan of care. Time of 1ST Reevaluation: 20:15 Reevaluation 1ST: Unchanged Time of 2ND Reevaluation: 20:37 Reevaluation 2ND: Unchanged Patient Education/Counseling: Diagnosis, Treatment, Prognosis, Need For Follow Up Family Education/Counseling: No Family Present SEPSIS Sepsis Screen Date sepsis recognized/suspect: Jul 12, 2025 Time Sepsis recognized/suspect: 1956 Recent Procedure: No On Antibiotic Therapy: No Respiratory Rate >20: No Heart Rate >90: Yes Temp<36 C (96.8 F) or >38.3 C: No SBP <90 or MAP <65 mmHG: No New Acute Mental Status Change: No Is the patient on CPAP, BIPAP,: No Vital Signs Date Time Temp Pulse Resp B/P (MAP) Pulse Ox O2 Delivery O2 Flow Rate FiO2 07/12/25 20:49 98.6 88 19 107/65 (79) 96 98.6 07/12/25 20:49 88 19 96 Room Air 07/12/25 19:57 97.8 101 18 125/81 94 97.8 Medications Medications Dose Ordered Sig/Colby Route Start Time Stop Time Status Last Admin Dose Admin Doxycycline Monohydrate 100 mg ONCE ONCE PO 07/12/25 20:45 07/12/25 20:46 DC 07/12/25 20:48 Departure 1 Departure Time of Disposition: 20:35 Impression: Primary Impression: Open wound of great toe without damage to nail Qualified Codes: S91.102A - Unspecified open wound of left great toe without damage to nail, initial encounter Disposition: HOME / SELF CARE / HOMELESS Condition: Stable e-Prescriptions Doxycycline Hyclate (DOXYCYCLINE HYCLATE) 100 Mg Tab 1 TAB PO BID for 7 Days, #14 TAB Prov: KAYE MILLER 07/12/25 Discharged With: Self Critical Care Note Critical Care Time?: No Stability Stability form required: KAYE Balderas Jul 12, 2025 20:38
[2025-07-12] MEDS: DOXYCYCLINE 100 MG TAB/CAP PO ONE (20:48)
[2025-07-12 20:49] VITALS: BP 107/65; PULSE 88; RESP 19; TEMP 98.6; O2SAT 96
== END 2025-07-12 21:03 | disposition home or self-care (01) ==
LOC: ER 19:55
DX: S91.102A Unspecified open wound of left great toe without damage to nail, initial encounter (principal); I11.0 Hypertensive heart disease with heart failure; I50.9 Heart failure, unspecified; J44.9 Chronic obstructive pulmonary disease, unspecified; E11.9 Type 2 diabetes mellitus without complications; Z79.899 Other long term (current) drug therapy; Z88.5 Allergy status to narcotic agent; X58.XXXA Exposure to other specified factors, initial encounter; Y93.89 Activity, other specified; Y92.89 Other specified places as the place of occurrence of the external cause; Y99.8 Other external cause status

== ENCOUNTER 2025-07-25 17:41 | Inpatient (IN) | payer MEDICAID ==
[~2025-07-25] VITALS: Ht 170.2 cm; Wt 83.1 kg
--- NOTE | 2025-07-25 17:56 | ED.PDOC ---
HPI Comments HPI: Past Medical history: DM, CHF, HTN, High Lipids, Enlarged Heart, IA x2, Blood thinners Past Surgical history: Denies Any Medications: Lasix, Aspirin, Eliquis Social History: Patient quit smoking six years ago, ETOH, and drug use. Allergies: Metformin, Morphine DK: DELPHINE HPI: Poor Historian. 54-YEAR-OLD FEMALE PRESENTS TO EMERGENCY DEPARTMENT FOR ONE DAY HISTORY of midsternal chest pain constant nonradiating. Patient has associated shortness of breath. Patient states she has been having some four day history of some nonspecific symptoms such as low back pain and some nonspecific itchiness that are not present during my evaluation. REVIEW OF SYSTEMS: CONSTITUTIONAL: Denies acute: fever, diaphoresis, chills, generalized weakness. HEAD: Denies acute: headache, photophobia Eyes: Denies acute: Double vision, vision loss, eye pain, eye discharge. EARS: Denies acute: tinnitus, hearing loss, ear discharge, ear pain, THROAT: Denies acute: sore throat, swelling, difficulty swallowing , pain with swallowing, change in voice. NECK: Denies acute: neck pain, neck swelling, stiff neck. HEART: Denies acute : palpitations, LUNGS: Denies acute: wheezing, cough, hemoptysis ABDOMEN: Denies acute: abdominal pain, Nausea, Vomiting, diarrhea, melena , hematemesis, hematochezia SKIN: Denies acute: rash, redness, lesions, EXTREMITIES: Denies acute: calf pain, numbness, tingling, weakness, denies pain in extremity. Denies acute: Low back pain. Neuro: Denies acute: focal neurological deficit, motor or sensory focal neurological deficit, tremors, seizure like activity, confusion, dizziness, change in mental status, loss of bowel or bladder function, cauda equina like symptoms. : Denies acute: dysuria, hematuria, flank pain, increase in urinary frequency. PSYCH: Denies acute: hallucination, suicidal ideation, homicidal ideation. FEMALE: Denies acute: abnormal vaginal bleeding, foul odor, unusual discharge. PHYSICAL EXAM: General: ---mild-----acute distress, awake and alert. Head: normocephalic, atraumatic. Neck: supple, trachea is midline, no swelling. Throat: Normal phonation. Eyes:, no erythema, no purulent discharge, no proptosis, no icterus. Heart: regular rate, regular rhythm, no significant murmur appreciated. Lungs: no apparent respiratory distress, Able to speak in full sentences. No wheezing, no rhonchi, no crackles. No stridors Clear to auscultation bilaterally. Abdomen: non tender to palpation, non distended, soft, no guarding, no rebound, + bowel sounds. Neuro: Awake, Alert, oriented to name, self, situation, follows commands GCS=15. Speech is normal. Skin: no petechia, no purpura, no cyanosis, non-pale, not jaundice. Lower extremities: --no - Pitting edema no deformity, no focal swelling, no calf TTP. Makes eye contact. moves all four extremities. Face: no apparent facial droop. Minimal CVA tenderness to percussion bilaterally. Ambulating in the ED independently. ED COURSE: DISCLAIMER: This medical document was created using an electronic medical record system with voice recognition software and computerized dictation system. Although this document has been carefully reviewed, there might still be some phonetic and typographical errors. Occasional wrong-word or "sound-alike" substitutions may have occurred due to the inherent limitations of voice recognition software. These areas are purely typographical due to imperfections of the software prog monalisa and do not reflect any compromise in the patient's medical care. Please read the chart carefully and recognize, using context, where these substitutions have occurred. Chief Complaint: Chest Pain Time Seen by MD: 17:55 Reviewed Notes: Nurses Notes, Medications, Allergies Allergies: Coded Allergies: Morphine (Verified Allergy, Intermediate, 05/11/25) Metformin (Unverified Adverse Reaction, Intermediate, cold through lower back , 05/14/25) Patient states that she feels a coldness throuhout her lower back Home Meds Active Scripts Pantoprazole Sodium Sesquihydr (Protonix) 40 Mg Tab, 40 MG PO DAILY for 30 Days, #30 TAB 0 Refills Prov:ARMIN HENSLEY MD 05/29/25 Baclofen (Baclofen) 5 Mg Tab, 5 MG PO BID for 5 Days, #10 TAB 0 Refills Prov:ARMIN HENSLEY MD 05/29/25 Alprazolam (Xanax) 0.5 Mg Tb, 0.5 TAB PO BID PRN for 7 Days, #7 TAB 0 Refills Prov:ARMIN HENSLEY MD 05/29/25 Insulin Pen Needle (Bd Ultrafine Short Pen Ne) 31GX5/16 Mis, UNITS XX ACHS, #100 0 Refills Prov:ARMIN HENSLEY MD 05/14/25 Lancets (Freestyle Lancets) Lancets Mis, UNIT XX ACHS, #120 0 Refills Prov:ARMIN HENSLEY MD 05/14/25 Glucose Blood (Freestyle Test Strips) [place], 1 UNITS SUBCUT ACHS, #120 MISC 0 Refills Prov:ARMIN HENSLEY MD 05/14/25 Blood Glucose Monitoring Suppl (Freestyle Lite Blood Gluc) Lite Mis, UNIT XX ACHS, #1 0 Refills Prov:ARMIN HENSLEY MD 05/14/25 Blood Glucose Monitoring Suppl (EASY TOUCH GLUCOSE MONITO) Monitor Kit, UNIT XX ACHS, #1 0 Refills Prov:ARMIN HENSLEY MD 05/14/25 Insulin Regular (Human) (Novolin R Flexpen) 100 Unit/Ml Inj, 2-14 UNIT IJ TIDWM PRN for 30 Days, #1 INJ 0 Refills Blood Sugar RangeLispro Insulin Instructions Less than 70Hold all insulin 70-1500 units 151-1742 units 175-1994 units 200-2246 units 225-2498 units 250-94608 units 275-28794 units Greater than 300 Administer 14 units Prov:ARMIN HENSLEY MD 05/14/25 Isopropyl Alcohol (Isopropyl Alcohol Wipes) 70 % Mis, 70 % EX ACHS for 30 Days, #120 MISC 0 Refills Prov:LINDA TERRAZAS 05/14/25 Insulin Glargine (Lantus Solostar) 100 Unit/Ml Inj, 10 UNIT SC HS for 30 Days, #5 INJ 0 Refills Prov:LINDA TERRAZAS 05/14/25 Lancets (Freestyle Lancets) Lancets Mis, EA XX DAILY, #120 0 Refills Fasting Prov:LINDA TERRAZAS 05/13/25 Blood Glucose Monitoring Suppl (EASY TOUCH GLUCOSE MONITO) Monitor Kit, EA XX DAILY, #1 0 Refills sales property manager Prov:LINDA TERRAZAS 05/13/25 Albuterol Sulfate (VENTOLIN MDI) 90 Mcg Ih, 90 MCG IN DAILY for 30 Days, #1 INH Prov:[facility] 05/13/25 Cholecalciferol (VITAMIN D) 5,000 Unit Tab, 5000 UNIT OR DAILY for 30 Days, #30 TAB Prov:[facility] 05/13/25 Aspirin (Aspirin Low Dose) 81 Mg Tab, 81 MG PO DAILY for 30 Days, #30 TAB Prov:[facility] 05/13/25 Umeclidinium-Vilanterol (Anoro Ellipta 62.5-25 Mcg/INH) 1 Aer Aer, 1 AER IN BID for 30 Days, #1 AER 0 Refills Prov:[facility] 05/13/25 Furosemide (Lasix) 20 Mg Tb, 1 TAB PO BID for 30 Days, #60 TAB 3 Refills Prov:[facility] 05/13/25 Atorvastatin Calcium (Lipitor) 40 Mg Tab, 1 TAB PO QPM for 30 Days, #30 TAB 1 Refill 40 mg daily Prov:[facility] 05/13/25 Gabapentin (Gabapentin) 300 Mg Cap, 1 CAP PO TID for 30 Days, #90 CAP 5 Refills Prov:[facility] 05/13/25 Sacubitril-Valsartan (Entresto 15-16 mg) 1 Cap Cap, 1 CAP PO BID for 30 Days, #60 CAP Prov:[facility] 05/13/25 Apixaban Base (ELIQUIS) 5 Mg Tab, 5 MG PO BID for 30 Days, #60 TAB [facility] 05/13/25 Carvedilol (Coreg) 6.25 Mg Tab, 6.25 MG PO BID for 30 Days, #60 TAB Prov:[facility] 05/13/25 Spironolactone (Aldactone) 25 Mg Tab, 1 TAB PO DAILY for 30 Days, #30 TAB 3 Refills [facility] 05/13/25 Reported Medications Semaglutide (Ozempic) 2 Mg/3 Ml Inj, 0.5 MG SC QWEEKLY 07/26/25 Insulin Glargine (Lantus) 100 Unit/Ml Inj, 5 UNIT SC TID, INJ 05/28/25 Insulin Lispro (Insulin Lispro Kwikpen) 100 Unit/Ml Inj, 10 UNIT SC ONCE 05/28/25 Empagliflozin (Jardiance) 10 Mg Tab, 1 TAB PO DAILY 05/28/25 Discontinued Scripts Doxycycline Hyclate (DOXYCYCLINE HYCLATE) 100 Mg Tab, 1 TAB PO BID for 7 Days, #14 TAB Prov:KAYE MILLER NECK PINNER 07/12/25 Information Source: Patient, Relative (Child) Mode of Arrival: Ambulatory Past Medical History PAST MEDICAL HISTORY: CHF, DM, High Lipids, HTN, IA (x2) Past Medical History (Other): enlarged Heart, Taking blood thinners Surgical History: Denies all surgeries UPWARD BOUND DIRECTOR History: Denies all UPWARD BOUND DIRECTOR Hx Family History Family History: Reviewed,noncontributory to illness, Unknown, Family hx of heart shagufta Social History Smoker: Non-Smoker, Quit Greater Than 1 Year, Secondhand Alcohol: Denies ETOH Use Drugs: Denies Drug Use Lives In: Home EKG EKG : Pulse Rate (adult): 81 [place]: Normal Cardiac Rhythm: NSR Block: None Hypertrophy: None ST: Normal Was a procedure done? Was a procedure done?: No CP Differential Dx Differential Diagnosis: N/A Differential Diagnosis: Other (Ddx include but not limitied to gastritis, musculoskeletal pain, radiculopathy, atypical chest pain, dissection, aneurysm, ACS, unstable angina, hiatal hernia, GERD, anxiety, costochondritis, PE, pneumothroax, neoplasm, cardiac ischemia, drug abuse, anemia.) X-Ray, Labs, Meds, VS Vital Signs Date Time Temp Pulse Resp B/P (MAP) Pulse Ox O2 Delivery O2 Flow Rate FiO2 07/25/25 20:44 97.8 75 17 134/87 (103) 95 97.8 07/25/25 20:35 71 20 96 Room Air* 0 21 07/25/25 18:44 77 07/25/25 17:56 81 07/25/25 17:46 97.7 87 20 110/78 98 97.7 07/25/25 17:45 81 Lab Test 07/25/25 20:52 07/25/25 18:49 07/25/25 17:55 07/25/25 17:50 Range/Units D-Dimer, Quantitative 0.29 0.0-0.49 mg/L FEU Troponin I High Sensitivity 8 10 8 </=34 ng/L Lactic Acid Level 0.7 0.4-2.0 mmol/L Urine Color Light-yellow Yellow Urine Clarity Clear Clear Urine pH 5.5 5.0-9.0 Urine Specific [place] 1.011 1.001-1.035 Urine Protein 2+ H Negative Urine Ketones Negative Negative Urine Blood Trace H Negative /uL Urine Nitrite Negative Negative Urine Bilirubin Negative Negative Urine Urobilinogen Normal Negative mg/dL Urine Leukocyte Esterase Negative Negative /uL Urine RBC 2 0 - 4 /hpf Urine Microscopic WBC 1 0-5 /HPF Urine Squamous Epithelial Cells Few <5 /hpf Urine Bacteria Few H None Seen /hpf Urine Hyaline Casts Mod 0 - 2 /lpf Urine Mucus Few None Seen Urine Glucose 4+ H Normal mg/dL Urine Opiates Screen Neg NEGATIVE Urine Fentanyl Screen Neg NEGATIVE Urine Barbiturates Screen Neg NEGATIVE Urine Phencyclidine Screen Neg NEGATIVE Urine Amphetamines Screen Neg NEGATIVE Urine Benzodiazepines Screen Neg NEGATIVE Urine Cocaine Screen Neg NEGATIVE Urine Cannabinoids Screen Pos NEGATIVE White Blood Count 7.3 4.4-10.8 10^3/uL Red Blood Count 4.72 4.0-5.20 10^6/uL Hemoglobin 12.7 12.2-16.2 g/dL Hematocrit 39.4 36.0-46.0 % Mean Corpuscular Volume 83.5 80.0-100.0 fL Mean Corpuscular Hemoglobin 27.0 L 28.0-32.0 pg Mean Corpuscular Hemoglobin Concent 32.3 32.0-36.0 g/dL Red Cell Distribution Width 16.7 H 11.8-14.3 % Platelet Count 295 140-450 10^3/uL Mean Platelet Volume 9.3 6.9-10.8 fL Neutrophils (%) (Auto) 54.9 37.0-80.0 % Lymphocytes (%) (Auto) 27.4 10.0-50.0 % Monocytes (%) (Auto) 5.6 0.0-12.0 % Eosinophils (%) (Auto) 11.0 H 0.0-7.0 % Basophils (%) (Auto) 1.1 0.0-2.0 % Neutrophils # (Auto) 4.0 1.6-8.6 10 ^3/uL Lymphocytes # (Auto) 2.0 0.4-5.4 10 ^3/uL Monocytes # (Auto) 0.4 0-1.3 10 ^3/uL Eosinophils # (Auto) 0.8 0-0.8 10 ^3/uL Basophils # (Auto) 0.1 0-0.2 10 ^3/uL Nucleated Red Blood Cells 0.1 % Erythrocyte Sedimentation Rate 23 H 0-20 mm/hr Sodium Level 139 136-145 mmol/L Potassium Level 4.8 3.5-5.1 mmol/L Chloride Level 106 98-107 mmol/L Carbon Dioxide Level 26 20-31 mmol/L Anion Gap 7 5-15 Blood Urea Nitrogen 24 H 9-23 mg/dL Creatinine 1.30 H 0.550-1.02 mg/dL Glomerular Filtration Rate Calc 49 >90 mL/min BUN/Creatinine Ratio 18.5 10.0-20.0 Serum Glucose 113 H 74-106 mg/dL Calcium Level 9.4 8.7-10.4 mg/dL Total Bilirubin 0.3 0.2-1.0 mg/dL Aspartate Amino Transferase (AST) 19 13-40 U/L Alanine Aminotransferase (ALT) 18 7-40 U/L Alkaline Phosphatase 72 46-116 U/L C-Reactive Protein High Sensitivity 0.04 <1.0 mg/dL B-Type Natriuretic Peptide 108.95 0-100 pg/mL Total Protein 7.4 5.7-8.2 g/dL Albumin 4.2 3.2-4.8 g/dL [place] [id number] Ph: [phone] DIAGNOSTIC IMAGING Diagnostic Imaging Report : [id number] Signed PATIENT: JIGNESH ROOT ACCT: [id number] UNIT: [id number] : 1970 LOC: ER ROOM / BED: / AGE / SEX: 54 / F ADM STATUS: REG ER SERVICE 50 ORDERING PHYSICIAN: SARAH SANDERSON DO PROCEDURE(s): CXRP - CHEST PORTABLE REASON: cp ORDER NUMBER(s): [id number], ACCESSION NUMBER(s): [id number] EXAM: XY CHEST PORTABLE CLINICAL HISTORY: cp TECHNIQUE: Single AP view of the chest WID: COMPARISON: XY CHEST TWO VIEWS ROUTINE on DOS: 05/27/25 FINDINGS: Lines and tubes: None Chest: The heart size and pulmonary vasculature is within normal limits. No pleural effusion, pneumothorax, or consolidation. The osseous structures are grossly intact. Healing anterior right 2nd, 3rd, 4th, 5th rib fractures. Multilevel thoracic spondylosis. IMPRESSION: 1. No acute cardiopulmonary abnormality. 2. Healing anterior right 2nd-5th rib fractures. ATED BY: ALI DAWSON MD DICTATED DATE/TIME: 07/25/252028 SIGNED BY: LAI DAWSON MD SIGNED DATE/TIME: 07/25/252028 CC: Time of 1ST Reevaluation: 18:25 Reevaluation 1ST: Unchanged Patient Education/Counseling: Diagnosis Family Education/Counseling: Diagnosis SEPSIS Sepsis Screen Date sepsis recognized/suspect: Jul 25, 2025 Time Sepsis recognized/suspect: 1748 Recent Procedure: No On Antibiotic Therapy: No Respiratory Rate >20: No Heart Rate >90: No Temp<36 C (96.8 F) or >38.3 C: No SBP <90 or MAP <65 mmHG: No New Acute Mental Status Change: No Is the patient on CPAP, BIPAP,: No Physician Orders Electrocardigram (07/25/25 17:43) Electrocardigram (07/25/25 18:43) Electrocardigram (07/25/25 20:43) Educational Technologist (07/25/25 ) Chest Portable (07/25/25 19:51) Vital Signs Date Time Temp Pulse Resp B/P (MAP) Pulse Ox O2 Delivery O2 Flow Rate FiO2 07/25/25 20:44 97.8 75 17 134/87 (103) 95 97.8 07/25/25 20:35 71 20 96 Room Air* 0 21 07/25/25 18:44 77 07/25/25 17:56 81 07/25/25 17:46 97.7 87 20 110/78 98 97.7 07/25/25 17:45 81 Laboratory Tests Test 07/25/25 17:50 07/25/25 18:49 White Blood Count 7.3 10^3/uL (4.4-10.8) Lactic Acid Level 0.7 mmol/L (0.4-2.0) Departure 1 Departure Time of Disposition: 18:13 Impression: Primary Impression: Chest pain Additional Impression: Abnormal EKG Disposition: 09 ADMITTED INPATIENT Admit to: Tele Condition: Guarded Discharged With: Self Critical Care Note Critical Care Time?: No Heart Score Heart Score: Heart Score Response (Comments) Value History Moderate Suspicious [address]-Deviation 2 Age 45-64 1 Risk Factors >3 or Hx ASHD 2 Troponin Normal limit 0 Total 6 I personally scribed for SARAH SANDERSON DO ([email or web address]) on 07/25/25 at 17:56. Electronically submitted by Reynold Mathew ([employer]). I personally scribed for SARAH SANDERSON DO ([email or web address]) on 07/25/25 at 20:45. Electronically submitted by Reynold Mathew ([employer]). I personally scribed for SARAH SANDERSON DO ([email or web address]) on 07/25/25 at 21:32. Electronically submitted by Reynold Mathew ([employer]). SARAH SANDERSON DO Jul 25, 2025 17:56
[2025-07-25 19:05] LABS: Alanine Aminotransferase 18 U/L (7-40); Albumin 4.2 g/dL (3.2-4.8); Alkaline Phosphatase 72 U/L (46-116); Anion Gap 7 (5-15); BUN/Creatinine Ratio 18.5 (10.0-20.0); Calcium 9.4 mg/dL (8.7-10.4); Carbon Dioxide 26 mmol/L (20-31); Chloride 106 mmol/L (98-107); Potassium 4.8 mmol/L (3.5-5.1); Sodium 139 mmol/L (136-145); Total Protein 7.4 g/dL (5.7-8.2)
[2025-07-25 19:06] LABS: Bilirubin, Total 0.3 mg/dL (0.2-1.0); Blood Urea Nitrogen 24 mg/dL (9-23); Glucose 113 mg/dL (74-106)
[2025-07-25 19:30] LABS: Hematocrit 39.4 % (36.0-46.0); Hemoglobin 12.7 g/dL (12.2-16.2); Mean Corpuscular Hemoglobin 27.0 pg (28.0-32.0); Mean Corpuscular Volume 83.5 fL (80.0-100.0); Nucleated Red Blood Cells % 0.1 %
[2025-07-25 19:53] LABS: Cannabinoid Screen, Urine Pos (NEGATIVE); Urine Protein, UAD 2+ (Negative)
[2025-07-25 19:55] LABS: Amphetamine Screen, Urine Neg (NEGATIVE); Barbiturate Scree,Urine Neg (NEGATIVE); Benzodiazephine Screen, Urine Neg (NEGATIVE); Cocaine Screen, Urine Neg (NEGATIVE); Opiate Scree,Urine Neg (NEGATIVE); Phencyclidine Screen, Urine Neg (NEGATIVE)
--- NOTE | 2025-07-25 20:31 | DVH ---
EXAM: XY CHEST PORTABLE CLINICAL HISTORY: cp TECHNIQUE: Single AP view of the chest WID: COMPARISON: XY CHEST TWO VIEWS ROUTINE on DOS: 05/27/25 FINDINGS: Lines and tubes: None Chest: The heart size and pulmonary vasculature is within normal limits. No pleural effusion, pneumothorax, or consolidation. The osseous structures are grossly intact. Healing anterior right 2nd, 3rd, 4th, 5th rib fractures. M ultilevel thoracic spondylosis. IMPRESSION: 1. No acute cardiopulmonary abnormality. 2. Healing anterior right 2nd-5th rib fractures.
[2025-07-25 20:35] VITALS: PULSE 71; RESP 20; O2SAT 96
--- NOTE | 2025-07-25 20:41 | ECG ---
[facility] Test Date: 2025-07-25 Test Time: 20:40:09 Pat Name: JIGNESH ROOT Department: ED Room: [address] [place] [address] Gender: F Manager Security: TRACY : 1970 Requested By: FLOR GRAMAJO Order Number: [id number] Reading MD: Prieto Martinez Measurements Intervals [place] Rate: 73 P: 55 NM: 180 QRS: 20 QRSD: 130 T: -69 QT: 412 QTc: 454 Interpretive Statements Sinus rhythm Left bundle branch block Electronically Signed On 07-26-2025 16:45:22 PDT by Prieto Martinez Please click the below link to view image of tracing.
[2025-07-25] MEDS: HYDROcodone-ACET 5/325MG TAB PO ONE (21:29)
[2025-07-25] MEDS ORDERED: DOCUSATE SOD 100 MG CAP PO PRN (22:15)
[2025-07-25] MEDS ORDERED: ONDANSETRON HCL 4 MG/2 ML VIAL IV PRN (22:15)
[2025-07-26] VITALS (19 sets, daily range): BP systolic 93–129; BP diastolic 58–82; PULSE 68–87; RESP 13–19; TEMP 97.4–98.7; O2SAT 92–100
[2025-07-26] MEDS: ACETAMINOPHEN 325 MG TAB PO PRN (00:31)
[2025-07-26] MEDS ORDERED: SEMA2INJ3 SC (00:55)
[2025-07-26] MEDS ORDERED: NITROGLYCERIN 0.4 MG SL TAB SL PRN (02:00)
[2025-07-26] MEDS: IPRATROPIUM BROM 0.5 MG/2.5ML INH SOL NEB ONE (03:15)
[2025-07-26] MEDS: LEVALBUTEROL HCL 1.25 MG/3 ML NEB NEB ONE (03:15)
[2025-07-26] MEDS: GABAPENTIN 300 MG CAP PO SCH (05:57)
[2025-07-26] MEDS: FUROSEMIDE 20 MG TAB PO SCH (05:58)
[2025-07-26] MEDS: IPRATROPIUM BROM 0.5 MG/2.5ML INH SOL NEB SCH (06:23)
[2025-07-26] MEDS: LEVALBUTEROL HCL 1.25 MG/3 ML NEB NEB SCH (06:23)
[2025-07-26 07:04] LABS: Alanine Aminotransferase 17 U/L (7-40); Albumin 4.2 g/dL (3.2-4.8); Alkaline Phosphatase 67 U/L (46-116); Anion Gap 9 (5-15); BUN/Creatinine Ratio 15.9 (10.0-20.0); Calcium 8.8 mg/dL (8.7-10.4); Carbon Dioxide 24 mmol/L (20-31); Chloride 103 mmol/L (98-107); Potassium 4.2 mmol/L (3.5-5.1); Total Protein 7.1 g/dL (5.7-8.2)
[2025-07-26 07:07] LABS: Bilirubin, Total 0.3 mg/dL (0.2-1.0); Blood Urea Nitrogen 23 mg/dL (9-23); Glucose 108 mg/dL (74-106); Hematocrit 36.8 % (36.0-46.0); Hemoglobin 12.2 g/dL (12.2-16.2); Lipase 91 U/L (12-53); Mean Corpuscular Hemoglobin 27.4 pg (28.0-32.0); Mean Corpuscular Volume 82.4 fL (80.0-100.0); Nucleated Red Blood Cells % 0.0 %; Sodium 136 mmol/L (136-145)
--- NOTE | 2025-07-26 07:13 | DVHHPRES ---
History of Present Illness Resident Creating Document: JERMAIN ORTEGA RESIDENT History of Present Illness 54 year old female past medical history of pyelonephritis, coronary artery disease have ref, type 2 diabetes mellitus, hypertension, COPD presented to the hospital with complains of flank pain, chest pain, headache since 4 days. She describes the chest pain as 6 on 10 in intensity, pressure-like, on and off, aggravating at night and alleviating during the day. She describes the headache as unilateral and increasing on exposure to light and sound. PMHx: Pyelonephritis 6 months ago, coronary artery disease in March, have ref, type 2 diabetes mellitus, hypertension, COPD PSHx: Tonsillectomy 38 years back Family history: History of DVT in grandmother, diabetes mellitus in mother Social history: Stopped using alcohol 10 years ago, 30 pack year smoking history, uses weed on occasion Home medication: Reconcile, patient does not have medication list Allergic history: Morphine, metformin Review of Systems Review of Systems General: patient denies fever, fatigue, weaknes, sweating, any recent changes in appetite and weight HEENT: Complains of headache, denies visiual changes, hearing loss, tinnitus, nasal congestion and discharge, and sore throat. Cardiovascular: Complains of mild chest pain and shortness of breath Respiratory: No cough, and wheezing. Gastrointestinal: Denies nausea, vomiting, dysphagia, odynophagia, heartburn, abdominal pain, flatulence, bloating, diarrhea, constipation, change in stool, or blood in stool. Genitourinary: No dysuria, hematuria, discharge, frequency, urgency, nocturia, incontinence, and urinary retention. Endocrine: No heat or cold intolerance, polydipsia, polyuria, and polyphagia. Neurological: No dizziness, extremity weakness and numbness, tremors, gait disturbance, seizures, and memory impairment. Psychiatric: Denies depression, anxiety,or insomnia. Musculoskeletal: Complains of back pain, Denies neck pain, stiffness and swelli ng, back pain, muscle weakness, stiffness, swelling, or limited range of motion. Skin: No rashes, itching, skin lesion, changes in hair, nail, skin texture and breast. Hematologic/Lymphatic: Denies easy bruising, bleeding tendencies, or lymph node enlargement. Allergies: Coded Allergies: Morphine (Verified Allergy, Intermediate, 05/11/25) Metformin (Unverified Adverse Reaction, Intermediate, cold through lower back , 05/14/25) Patient states that she feels a coldness throuhout her lower back Medications Current Medications Medications Dose Ordered Sig/Colby Route Start Time Stop Time Status Last Admin Dose Admin Acetaminophen 325 mg Q4HP PRN PO 07/25/25 22:15 07/26/25 00:31 325 MG Acetaminophen/ Hydrocodone Bitart 1 tab Q4HP PRN PO 07/25/25 22:15 Ondansetron HCl 4 mg Q4HP PRN IV 07/25/25 22:15 Docusate Sodium 100 mg BIDPRN PRN PO 07/25/25 22:15 Nitroglycerin 0.4 mg Q5MINP PRN SL 07/26/25 02:00 Fluoxetine HCl 10 mg DAILY PO 07/26/25 10:00 Gabapentin 300 mg TID PO 07/26/25 06:00 07/26/25 05:57 300 MG Empaglifozin 10 mg DAILY PO 07/26/25 10:00 Atorvastatin Calcium 40 mg HS PO 07/26/25 22:00 Aspirin 81 mg DAILY PO 07/26/25 10:00 Carvedilol 6.25 mg Q12HR PO 07/26/25 10:00 Sacubitril/ Valsartan 1 tab BID PO 07/26/25 10:00 Furosemide 20 mg BIDD PO 07/26/25 06:00 07/26/25 05:58 20 MG Apixaban 5 mg BID PO 07/26/25 10:00 Levalbuterol HCl 0.625 mg Q6HWA [facility] 07/26/25 06:00 07/26/25 06:23 0.625 MG Ipratropium [place] 0.5 mg Q6HWA [facility] 07/26/25 06:00 07/26/25 06:23 0.5 MG Exam Vital Signs Vital Signs Date Time Temp Pulse Resp B/P (MAP) Pulse Ox O2 Delivery O2 Flow Rate FiO2 07/26/25 06:29 68 16 100 07/26/25 06:23 Room Air 0.0 07/26/25 06:23 21 07/26/25 05:58 129/74 07/26/25 05:00 97.9 97.9 Exam General Appearance: Alert, Oriented X3, Cooperative, No acute distress HEENT: Atraumatic, PERRLA, EOMI, Mucous membrane moist/pink Respiratory: Wheezing+ Cardiovascular: Regular rate, Normal S1, Normal S2, No murmurs, tenderness in chest present, reproducible Abdominal: Tenderness in bilateral flags, suprapubic tenderness, Normal bowel sounds, Soft, No hepatospenomegaly, No masses Extremities: No clubbing, No cyanosis, No edema, Normal pulses, No tenderness/swelling Skin: No rashes, No breakdown, No significant lesion Neuro: Normal gait, Normal speech, Strength at 5/5 X4 ext, Normal tone, Sensation intact, Cranial nerves 3-12 NL, Reflexes 2+ Psych/Mental Status: Mental status NL, Mood NL Labs/Xrays Labs Test 07/26/25 06:11 07/25/25 20:52 07/25/25 18:49 07/25/25 17:55 Range/Units D-Dimer, Quantitative 0.29 0.0-0.49 mg/L FEU Troponin I High Sensitivity 8 </=34 ng/L Lactic Acid Level 0.7 0.4-2.0 mmol/L Urine Color Light-yellow Yellow Urine Clarity Clear Clear Urine pH 5.5 5.0-9.0 Urine Specific [place] 1.011 1.001-1.035 Urine Protein 2+ H Negative Urine Ketones Negative Negative Urine Blood Trace H Negative /uL Urine Nitrite Negative Negative Urine Bilirubin Negative Negative Urine Urobilinogen Normal Negative mg/dL Urine Leukocyte Esterase Negative Negative /uL Urine RBC 2 0 - 4 /hpf Urine Microscopic WBC 1 0-5 /HPF Urine Squamous Epithelial Cells Few <5 /hpf Urine Bacteria Few H None Seen /hpf Urine Hyaline Casts Mod 0 - 2 /lpf Urine Mucus Few None Seen Urine Glucose 4+ H Normal mg/dL Urine Opiates Screen Neg NEGATIVE Urine Fentanyl Screen Neg NEGATIVE Urine Barbiturates Screen Neg NEGATIVE Urine Phencyclidine Screen Neg NEGATIVE Urine Amphetamines Screen Neg NEGATIVE Urine Benzodiazepines Screen Neg NEGATIVE Urine Cocaine Screen Neg NEGATIVE Urine Cannabinoids Screen Pos NEGATIVE Test 07/25/25 17:50 Range/Units Eosinophils (%) (Auto) 11.0 H 0.0-7.0 % Eosinophils # (Auto) 0.8 0-0.8 10 ^3/uL Basophils # (Auto) 0.1 0-0.2 10 ^3/uL Nucleated Red Blood Cells 0.1 % Erythrocyte Sedimentation Rate 23 H 0-20 mm/hr C-Reactive Protein High Sensitivity 0.04 <1.0 mg/dL B-Type Natriuretic Peptide 108.95 0-100 pg/mL SEPSIS Sepsis Screen Date sepsis recognized/suspect: Jul 25, 2025 Time Sepsis recognized/suspect: 1748 Recent Procedure: No On Antibiotic Therapy: No Respiratory Rate >20: No Heart Rate >90: No Temp<36 C (96.8 F) or >38.3 C: No SBP <90 or MAP <65 mmHG: No New Acute Mental Status Change: No Is the patient on CPAP, BIPAP,: No Physician Orders Echo 2d Mode Cardiac Dop (07/25/25 23:51) Nitroglycerin Sublingual (Ntrostat Subli (07/26/25 02:00) Electrocardigram (07/26/25 04:51) Fluoxetine Capsule (Prozac Capsule) (07/26/25 10:00) Gabapentin Capsule (Neurontin Capsule) (07/26/25 06:00) Empagliflozin (Jardiance) (07/26/25 10:00) Atorvastatin (Lipitor) (07/26/25 22:00) Aspirin Enteric Coated Tablet (Ecotrin E (07/26/25 10:00) Carvedilol Tablet (Coreg Tablet) (07/26/25 10:00) Sacubitril-Valsartan (Entresto 24-26 Mg (07/26/25 10:00) Furosemide Tablet (Lasix Tablet) (07/26/25 06:00) Apixaban (Eliquis) (07/26/25 10:00) Kidney (07/26/25 02:42) Blood Culture (07/26/25 02:55) Lipase (07/26/25 04:00) Levalbuterol Hcl (Xopenex Medneb) (07/26/25 06:00) Ipratropium Medneb (Atrovent Medneb) (07/26/25 06:00) Communication Order (07/26/25 03:07) Vital Signs Date Time Temp Pulse Resp B/P (MAP) Pulse Ox O2 Delivery O2 Flow Rate FiO2 07/26/25 06:29 68 16 100 07/26/25 06:23 92 Room Air 0.0 07/26/25 06:23 81 16 92 07/26/25 06:23 92 Room Air* 0 21 07/26/25 05:58 129/74 07/26/25 05:00 97.9 74 18 129/74 (92) 96 97.9 07/26/25 03:14 78 18 124/80 97 21 07/26/25 03:11 76 07/26/25 02:14 97.7 73 19 124/80 (95) 97 97.7 07/26/25 02:14 Room Air* 0 21 07/26/25 01:49 97.7 72 19 124/80 (95) 97 97.7 07/26/25 00:20 13 97 Room Air* 0 21 07/26/25 00:20 98.7 75 13 111/81 (91) 97 98.7 Laboratory Tests Test 07/25/25 18:49 07/26/25 06:11 Lactic Acid Level 0.7 mmol/L (0.4-2.0) White Blood Count Pending Medications Medications Dose Ordered Sig/Colby Route Start Time Stop Time Status Last Admin Dose Admin Acetaminophen 325 mg Q4HP PRN PO 07/25/25 22:15 07/26/25 00:31 325 MG Acetaminophen/ Hydrocodone Bitart 1 tab ONCE ONCE PO 07/25/25 20:45 07/25/25 21:09 DC 07/25/25 21:29 1 TAB Furosemide 20 mg BIDD PO 07/26/25 06:00 07/26/25 05:58 20 MG Gabapentin 300 mg TID PO 07/26/25 06:00 07/26/25 05:57 300 MG Ipratropium [place] 0.5 mg Q6HWA [facility] 07/26/25 06:00 07/26/25 06:23 0.5 MG Levalbuterol HCl 0.625 mg Q6HWA [facility] 07/26/25 06:00 07/26/25 06:23 0.625 MG Assessment/Plan Assessment/Plan Assessment #Stage IIIB chronic kidney disease #Rule out urinary tract obstruction #History of pyelonephritis #Noncardiac chest pain, possibly musculoskeletal #History of cardiac arrest post myocardial infarction, resuscitation required #Chronic HFrEF-last ejection fraction 30% #History of type 2 diabetes mellitus #Diabetic neuropathy #Vitamin-D deficiency #COPD #History of atrial fibrillation #History of iron-deficiency anemia #History of cannabis use # history of dyslipidemia # history of anxiety/depression Plan On telemetry Renal ultrasound Blood culture Leave albuterol, ipratropium nebulization Lipase Continue Home medications Barriers to discharge: Medical management in progress. Case discussed with Dr. El Code status: Full code. Complex patient care discussion needed total 33 minutes Plan discussed with: Patient My Orders Orders - JERMAIN ORTEGA RESIDENT Procedure Category Date Status Time Admit ADMIT 07/25/25 Transmitted 22:14 Allergies SHELLI 07/25/25 In Process 22:14 Code Status CODE 07/25/25 Transmitted 22:14 Acetaminophen Tablet PHA 07/25/25 In Process (Tylenol Tablet) 22:15 Hydrocodone-Acet PHA 07/25/25 In Process 5/325mg Tab (Brashear 22:15 Ondansetron Hcl PHA 07/25/25 In Process (Zofran) 22:15 Docusate Sodium PHA 07/25/25 In Process Capsule (Colace 22:15 Complete Blood Count LAB 07/26/25 In Process 04:00 Comprehensive LAB 07/26/25 In Process Metabolic Panel 04:00 Cardiac DIET 07/26/25 Transmitted Diet-2gna,Lofat,Lochol Breakfast Condition: Fair SHLELI 07/25/25 In Process 22:14 Stat Ekg For Chest SHELLI 07/25/25 In Process Pain 22:14 [employer] Boat [employer] For SHELLI 07/25/25 In Process 24 Hours 22:14 Echo 2d Mode Cardiac US 07/25/25 Logged DOP 23:51 Nitroglycerin PHA 07/26/25 In Process Sublingual (Ntrostat 02:00 Electrocardigram EKG 07/26/25 Logged 04:51 Fluoxetine Capsule PHA 07/26/25 In Process (Prozac Capsule) 10:00 Gabapentin Capsule PHA 07/26/25 In Process (Neurontin Capsule) 06:00 Empagliflozin PHA 07/26/25 In Process (Jardiance) 10:00 Atorvastatin (Lipitor) PHA 07/26/25 In Process 22:00 Aspirin Enteric PHA 07/26/25 In Process Coated Tablet 10:00 Carvedilol Tablet PHA 07/26/25 In Process (Coreg Tablet) 10:00 Sacubitril-Valsartan PHA 07/26/25 In Process (Entresto 24-26 Mg 10:00 Furosemide Tablet PHA 07/26/25 In Process (Lasix Tablet) 06:00 Apixaban (Eliquis) PHA 07/26/25 In Process 10:00 Lipase LAB 07/26/25 In Process 04:00 Date of Service: Jul 26, 2025 Billing Provider: CHYNA EL MD Common Visit Codes: [id number] INP/OBS CARE (HIGH) Secondary Visit Codes: [id number] CARE PLAN 30 MINUTES JERMAIN ORTEGA RESIDENT Jul 26, 2025 06:56
--- NOTE | 2025-07-26 07:53 | DVH ---
US KIDNEY HISTORY: rule out renal, ureter, bladder pathology COMPARISON: None TECHNIQUE: Transverse and longitudinal grayscale and color doppler images were obtained of the kidney s and bladder. FINDINGS: Right kidney: Size: 10.7 cm Cortical thickness: Normal Echogenicity: Normal Stones: None Masses: None Hydronephrosis: None Ureters: Not well visualized. Other: None Left kidney: Size: 11.3 cm Cortical thickness: Normal Echogenicity: Normal Stones: None Masses: None Hydronephrosis: None Ureters: Not well visualized. Other: None Bladder: Normal Other: None. IMPRESSION: Unremarkable renal ultrasound.
[2025-07-26] MEDS: SACUBITRIL-VALSARTAN 24mg/26mg TAB PO SCH (09:23)
[2025-07-26] MEDS: APIXABAN 5 MG TAB PO SCH (09:23)
[2025-07-26] MEDS: CARVEDILOL 3.125 MG TAB PO SCH (09:24)
[2025-07-26] MEDS: ASPirin-EC 81 mg tab PO SCH (09:24)
[2025-07-26] MEDS: EMPAGLIFLOZIN 10 MG TAB PO SCH (09:25)
--- NOTE | 2025-07-26 15:28 | DVHPN2 ---
Assessment/Plan Assessment/Plan Subjective History of Present Illness Carrie Jett is a 54-year-old female with a history of CAD, HFeRF30%, COPD, CKD3A, noninsulin-dependent diabetes, and rib fracture, presenting with chest pain and headache for 4 days. The patient reports experiencing pressure-like, on-and-off chest pain that is aggravated at night and improves during the day. She also complains of unilateral headache that worsens with light and sound exposure. The chest pain is reproducible on palpation. She has been experiencing low back pain and mild suprapubic tenderness as well. Ms. Jett's recent medical history is significant. Six months ago, she was treated for pyelonephritis. In March, she suffered a cardiac arrest and was diagnosed with DVT, for which she is currently taking Eliquis. Her last recorded A1c in April was 8.6. The patient is currently taking her home medications, which include fluoxetine, gabapentin, Lasix, Jardiance, aspirin, Coreg, Entresto, Eliquis, and Lipitor. An echocardiogram from April 2025 showed a 30% ejection fraction, dilated left ventricle, severe left ventricular dysfunction, moderate mitral regurgitation, and left atrium enlargement. Objective Physical Examination General: Alert and oriented x4. HEENT: JASON. Moist mucous membranes. Respiratory: Clear breath sounds. Cardiovascular: Regular rate and rhythm. S1, S2 normal. Reproducible chest tenderness on palpation. Abdomen: Soft, non-tender. Mild suprapubic tenderness. Musculoskeletal: Low back pain. No midline paraspinal pain. Extremities: No lower extremity edema. Laboratory, Imaging, and Diagnostic Test Results - Date: Sat Jul 26 2025 - Creatinine: 1.45 (baseline 1.2) - Glucose: Elevated (value not specified) - BNP: 108 - Troponin: Negative - Urinalysis: Relatively bland - Previous results: - Hemoglobin A1c: 8.6 (April 2025) - Chest X-ray: Healing right 2nd to 5th rib fractures - Renal ultrasound: Normal - EKG: Normal sinus rhythm with left bundle branch block - Echocardiogram (April 2025): 30% ejection fraction, dilated LV, severe LV dysfunction, moderate mitral regurgitation, left atrium enlargement Assessment & Plan Assessment - Coronary artery disease - Heart failure with reduced ejection fraction - Chronic obstructive pulmonary disease - Chronic kidney disease stage 3A - Type 2 diabetes mellitus - Rib fractures - Chest pain - Deep vein thrombosis - Migraine - Hyponatremia - Dyspepsia? - symptomatic UTI? bland urine Plan - Continue home medications: fluoxetine, gabapentin, Lasix, Jardiance, aspirin, Coreg, Entresto, Eliquis, and Lipitor - Start Protonix and Maalox for chest pain (likely related to rib fracture versus dyspepsia) - Administer one dose of Toradol for headache (likely migraine) - Continue Eliquis Diet: cardiac diet DVT PPX: Eliquis Code Status: Full Code. Plan discussed with: Patient My Orders Orders - VIPIN FABIAN MD Procedure Category Date Status Time Ketorolac Injection PHA 07/26/25 Logged (Toradol Injection) 15:30 Alum & Mag PHA 07/26/25 Logged Hydrox-Simethicone 18:00 Pantoprazole Tablet PHA 07/26/25 Logged (Protonix Tablet) 15:30 Pantoprazole Tablet PHA 07/27/25 Logged (Protonix Tablet) 06:00 Basic Metabolic Panel LAB 07/27/25 Verified 04:00 Date of Service: Jul 26, 2025 Billing Provider: VIPIN FABIAN MD Common Visit Codes: [id number] INP/OBS CARE(HIGH) VIPIN FABIAN MD Jul 26, 2025 15:28
[2025-07-26] MEDS: KETOROLAC TROMETH 30 MG/ML 1ML VIAL IV ONE (17:26)
[2025-07-26] MEDS: PANTOPRAZOLE 40 MG TAB PO ONE (17:27)
[2025-07-26] MEDS: MAALOX PLUS or MAALOX 30 ML PO SCH (17:29)
[2025-07-26] MEDS: ATORVASTATIN 20 MG TAB PO SCH (21:42)
[2025-07-27] VITALS (14 sets, daily range): BP systolic 102–144; BP diastolic 66–86; PULSE 66–80; RESP 14–20; TEMP 97.7–98.4; O2SAT 93–100
[2025-07-27] MEDS: PANTOPRAZOLE 40 MG TAB PO SCH (05:33)
[2025-07-27 07:03] LABS: Chloride 105 mmol/L (98-107); Sodium 138 mmol/L (136-145)
[2025-07-27 07:04] LABS: Anion Gap 7 (5-15); Carbon Dioxide 26 mmol/L (20-31)
[2025-07-27 07:07] LABS: Calcium 8.6 mg/dL (8.7-10.4); Potassium 5.4 mmol/L (3.5-5.1)
[2025-07-27 07:09] LABS: BUN/Creatinine Ratio 22.4 (10.0-20.0)
[2025-07-27 07:31] LABS: Blood Urea Nitrogen 37 mg/dL (9-23); Glucose 108 mg/dL (74-106)
[2025-07-27] MEDS ORDERED: MAA30LQ GT (13:41)
[2025-07-27] MEDS ORDERED: PANT40TA2 PO (13:41)
--- NOTE | 2025-07-27 13:44 | DVHDS2 ---
Discharge Summary Date of Admission Jul 25, 2025 at 22:14 Date of Discharge: Jul 27, 2025 Labs/Diagnostic Data: Laboratory Results Test 07/27/25 05:53 07/26/25 06:11 07/25/25 20:52 07/25/25 18:49 Sodium Level 138 mmol/L (136-145) Potassium Level 5.4 mmol/L (3.5-5.1) Chloride Level 105 mmol/L (98-107) Carbon Dioxide Level 26 mmol/L (20-31) Anion Gap 7 (5-15) Blood Urea Nitrogen 37 mg/dL (9-23) Creatinine 1.65 mg/dL (0.550-1.02) Glomerular Filtration Rate Calc 37 mL/min (>90) BUN/Creatinine Ratio 22.4 (10.0-20.0) Serum Glucose 108 mg/dL (74-106) Calcium Level 8.6 mg/dL (8.7-10.4) White Blood Count 7.6 10^3/uL (4.4-10.8) Red Blood Count 4.47 10^6/uL (4.0-5.20) Hemoglobin 12.2 g/dL (12.2-16.2) Hematocrit 36.8 % (36.0-46.0) Mean Corpuscular Volume 82.4 fL (80.0-100.0) Mean Corpuscular Hemoglobin 27.4 pg (28.0-32.0) Mean Corpuscular Hemoglobin Concent 33.2 g/dL (32.0-36.0) Red Cell Distribution Width 16.1 % (11.8-14.3) Platelet Count 254 10^3/uL (140-450) Mean Platelet Volume 9.2 fL (6.9-10.8) Neutrophils (%) (Auto) 52.3 % (37.0-80.0) Lymphocytes (%) (Auto) 31.0 % (10.0-50.0) Monocytes (%) (Auto) 5.5 % (0.0-12.0) Eosinophils (%) (Auto) 10.1 % (0.0-7.0) Basophils (%) (Auto) 1.1 % (0.0-2.0) Neutrophils # (Auto) 4.0 10 ^3/uL (1.6-8.6) Lymphocytes # (Auto) 2.4 10 ^3/uL (0.4-5.4) Monocytes # (Auto) 0.4 10 ^3/uL (0-1.3) Eosinophils # (Auto) 0.8 10 ^3/uL (0-0.8) Basophils # (Auto) 0.1 10 ^3/uL (0-0.2) Nucleated Red Blood Cells 0.0 % Total Bilirubin 0.3 mg/dL (0.2-1.0) Aspartate Amino Transferase (AST) 23 U/L (13-40) Alanine Aminotransferase (ALT) 17 U/L (7-40) Alkaline Phosphatase 67 U/L (46-116) Total Protein 7.1 g/dL (5.7-8.2) Albumin 4.2 g/dL (3.2-4.8) Lipase 91 U/L (12-53) D-Dimer, Quantitative 0.29 mg/L FEU (0.0-0.49) Troponin I High Sensitivity 8 ng/L (</=34) Lactic Acid Level 0.7 mmol/L (0.4-2.0) Test 07/25/25 17:55 07/25/25 17:50 Urine Color Light-yellow (Yellow) Urine Clarity Clear (Clear) Urine pH 5.5 (5.0-9.0) Urine Specific [place] 1.011 (1.001-1.035) Urine Protein 2+ (Negative) Urine Ketones Negative (Negative) Urine Blood Trace /uL (Negative) Urine Nitrite Negative (Negative) Urine Bilirubin Negative (Negative) Urine Urobilinogen Normal mg/dL (Negative) Urine Leukocyte Esterase Negative /uL (Negative) Urine RBC 2 /hpf (0 - 4) Urine Microscopic WBC 1 /HPF (0-5) Urine Squamous Epithelial Cells Few /hpf (<5) Urine Bacteria Few /hpf (None Seen) Urine Hyaline Casts Mod /lpf (0 - 2) Urine Mucus Few (None Seen) Urine Glucose 4+ mg/dL (Normal) Urine Opiates Screen Neg (NEGATIVE) Urine Fentanyl Screen Neg (NEGATIVE) Urine Barbiturates Screen Neg (NEGATIVE) Urine Phencyclidine Screen Neg (NEGATIVE) Urine Amphetamines Screen Neg (NEGATIVE) Urine Benzodiazepines Screen Neg (NEGATIVE) Urine Cocaine Screen Neg (NEGATIVE) Urine Cannabinoids Screen Pos (NEGATIVE) Erythrocyte Sedimentation Rate 23 mm/hr (0-20) C-Reactive Protein High Sensitivity 0.04 mg/dL (<1.0) B-Type Natriuretic Peptide 108.95 pg/mL (0-100) Other Laboratory Tests 07/27/25 05:53 07/26/25 06:11 Brief Hx & Hospital Course: Carrie Jett, a 54-year-old female with history of CAD, HFrEF (30% EF), COPD, CKD3A, diabetes, and recent cardiac arrest with DVT, presented with chest pain and headache for 4 days. Examination revealed reproducible chest tenderness and mild suprapubic tenderness. Labs showed elevated creatinine (1.45) and glucose with negative troponin. Imaging confirmed healing rib fractures. Treatment included continuing home medications (fluoxetine, gabapentin, Lasix, Jardiance, aspirin, Coreg, Entresto, Eliquis, Lipitor), adding Protonix and Maalox for suspected dyspepsia, and administering Toradol for migraine. reported improvement in chest apain and headache after toradol, has some epigastric tenderness and reflux. will c/w protonix and maalox. advised lifestyle changes. hyperK today, repeat BMP likely hemolysis. Condition at Discharge: Good Final Diagnosis/Problems List - Coronary artery disease - Heart failure with reduced ejection fraction chronic systolic HF - Chronic obstructive pulmonary disease - Chronic kidney disease stage 3A - Type 2 diabetes mellitus - Rib fractures - Chest pain - Deep vein thrombosis - Migraine - Hyponatremia - Dyspepsia? GERD Discharge Disposition: Home Discharge Instruct/Medications Scheduled Albuterol Sulfate (Ventolin Mdi), 90 MCG IN DAILY Apixaban Base (Eliquis), 5 MG PO BID Aspirin (Aspirin Low Dose), 81 MG PO DAILY Atorvastatin Calcium (Lipitor), 1 TAB PO QPM Baclofen (Baclofen), 5 MG PO BID Carvedilol (Coreg), 6.25 MG PO BID Cholecalciferol (Vitamin D), 5,000 UNIT OR DAILY Empagliflozin (Jardiance), 1 TAB PO DAILY, (Reported) Furosemide (Lasix), 1 TAB PO BID Gabapentin (Gabapentin), 1 CAP PO TID Glucose Blood (Freestyle Test Strips), 1 UNITS SUBCUT ACHS Insulin Glargine (Lantus Solostar), 10 UNIT SC HS Insulin Glargine (Lantus), 5 UNIT SC TID, (Reported) Insulin Lispro (Insulin Lispro Dopen), 10 UNIT SC ONCE, (Reported) Isopropyl Alcohol (Isopropyl Alcohol Wipes), 70 % EX ACHS Pantoprazole Sodium Sesquihydr (Protonix), 40 MG PO DAILY Pantoprazole Sodium Sesquihydr (Protonix), 40 MG PO DAILY Sacubitril-Valsartan (Entresto 15-16 mg), 1 CAP PO BID Semaglutide (Ozempic), 0.5 MG SC QWEEKLY, (Reported) Spironolactone (Aldactone), 1 TAB PO DAILY Umeclidinium-Vilanterol (Anoro Ellipta 62.5-25 Mcg/INH), 1 AER IN BID Scheduled PRN Alprazolam (Xanax), 0.5 TAB PO BID PRN Alum & Mag Hydrox-Simethicone (Maalox Plus), 30 ML GT Q6HP PRN Insulin Regular (Human) (Novolin R Flexpen), 2-14 UNIT IJ TIDWM PRN Discontinued Medications Doxycycline Hyclate (Doxycycline Hyclate), 1 TAB PO BID Discontinued Reason: Auto Discontinued Durable Medical Equipment Blood Glucose Monitoring Suppl (Easy Touch Glucose Monito), EA XX DAILY, (DME) Blood Glucose Monitoring Suppl (Easy Touch Glucose [place]ito), UNIT XX ACHS, (DME) Blood Glucose Monitoring Suppl (Freestyle Lite Blood Gluc), UNIT XX ACHS, (DME) Insulin Pen Needle (Bd Ultrafine Short Pen Ne), UNITS XX ACHS, (DME) Lancets (Freestyle Lancets), EA XX DAILY, (DME) Lancets (Freestyle Lancets), UNIT XX ACHS, (DME) Discharge Statement: "Patient was advised to return to the ER or call 911 if any headaches, dizziness, shortness of breath, chest pain, abdominal pain, bleeding, fevers, or worsening of medical condition. Patient was counseled about treatment plan, medications, possible side effects, patientverbalized understanding. All questions were answered to the best of my ability. This discharge took greater then 30 minutes in planning, reviewing documentation, counseling the patient, and discussing with other team members." ASSESSMENT ASSESSMENT Assessment Date of Service: Jul 27, 2025 Billing Provider: VIPIN FABIAN MD Common Visit Codes: 32679-QEA/OBS DISCH DAY >30min VIPIN FABIAN MD Jul 27, 2025 13:44
[2025-07-27 14:46] LABS: Chloride 105 mmol/L (98-107); Sodium 137 mmol/L (136-145)
[2025-07-27 14:47] LABS: Anion Gap 5 (5-15); Carbon Dioxide 27 mmol/L (20-31)
[2025-07-27 14:52] LABS: BUN/Creatinine Ratio 21.8 (10.0-20.0); Glucose 103 mg/dL (74-106)
[2025-07-27 14:55] LABS: Blood Urea Nitrogen 37 mg/dL (9-23); Calcium 8.5 mg/dL (8.7-10.4)
[2025-07-27 15:00] LABS: Potassium 5.8 mmol/L (3.5-5.1)
[2025-07-27] MEDS: HYDROcodone-ACET 5/325MG TAB PO PRN (21:33)
[2025-07-28] VITALS (14 sets, daily range): BP systolic 92–144; BP diastolic 64–90; PULSE 63–83; RESP 15–20; TEMP 97.6–98.1; O2SAT 92–100
--- NOTE | 2025-07-28 09:53 | ECG ---
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
[2025-07-28 11:30] LABS: Hematocrit 34.4 % (36.0-46.0); Nucleated Red Blood Cells % 0.0 %
[2025-07-28 11:34] LABS: Hemoglobin 11.3 g/dL (12.2-16.2); Mean Corpuscular Hemoglobin 27.1 pg (28.0-32.0); Mean Corpuscular Volume 82.8 fL (80.0-100.0)
[2025-07-28 11:48] LABS: Alanine Aminotransferase 15 U/L (7-40); Albumin 3.7 g/dL (3.2-4.8); Alkaline Phosphatase 59 U/L (46-116); Anion Gap 8 (5-15); BUN/Creatinine Ratio 23.9 (10.0-20.0); Carbon Dioxide 27 mmol/L (20-31); Chloride 105 mmol/L (98-107); Sodium 140 mmol/L (136-145); Total Protein 6.5 g/dL (5.7-8.2)
[2025-07-28 11:59] LABS: Bilirubin, Total 0.2 mg/dL (0.2-1.0); Blood Urea Nitrogen 38 mg/dL (9-23); Calcium 8.4 mg/dL (8.7-10.4); Glucose 124 mg/dL (74-106); Potassium 5.5 mmol/L (3.5-5.1)
--- NOTE | 2025-07-28 13:25 | ECG ---
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
[2025-07-28] MEDS ORDERED: DEXTROSE (50%) 50ML SYRG IV PRN (13:30)
[2025-07-28] MEDS: FUROSEMIDE 20 MG/2 ML VIAL IV ONE (13:47)
[2025-07-28] MEDS: ACCU-CHEK COMFORT CURVE STRIP VI ONE (13:48)
[2025-07-28] MEDS: SODIUM ZIRCONIUM CYCL 10 GM PAK PO ONE (13:48)
[2025-07-28] MEDS: InsuLIN REG 1unit/0.01ml Soln (100units/ml) IV ONE (13:56)
[2025-07-28] MEDS: ALBUTEROL SULF 2.5 MG/0.5ML(0.5%) NEB SOLN NEB ONE (14:04)
[2025-07-28 17:41] LABS: Chloride 105 mmol/L (98-107); Potassium 5.0 mmol/L (3.5-5.1); Sodium 140 mmol/L (136-145)
[2025-07-28 17:42] LABS: Anion Gap 7 (5-15); Carbon Dioxide 28 mmol/L (20-31)
[2025-07-28 17:44] LABS: Calcium 8.4 mg/dL (8.7-10.4)
[2025-07-28 17:47] LABS: BUN/Creatinine Ratio 22.0 (10.0-20.0); Glucose 77 mg/dL (74-106)
[2025-07-28 17:51] LABS: Blood Urea Nitrogen 36 mg/dL (9-23)
[2025-07-28] MEDS: ACCU-CHEK COMFORT CURVE STRIP VI SCH (17:51)
[2025-07-28] MEDS: TOPIRAMATE 25 MG TAB PO SCH (18:30)
--- NOTE | 2025-07-28 20:34 | DVHPNRES ---
Progress Note Date Seen: Jul 28, 2025 Resident Creating Document: CHANTAL CHEN RESIDENT Has the PT tested + for MRSA If YES, has PT been informed?: No Medical Necessity Reason Pt with a Central, PICC or Fol: No Subjective Review of Systems Patient was to be discharged; but due to hyperkalemia, order was discontinued; K+ 5,8, Entresto was discontinued; hyperkalemia protocol was given, EKG didn't show any changes, also, migraine prophylaxis was started with topiramate. Tomorrow case will be reevaluated if DC is safe Objective vital signs Vital Sign Date Time Temp Pulse Resp B/P (MAP) Pulse Ox O2 Delivery O2 Flow Rate FiO2 07/28/25 18:33 71 18 100 07/28/25 18:23 Room Air 07/28/25 18:23 0 21 07/28/25 17:51 92/64 07/28/25 17:05 97.9 97.9 Total Intake and Output 07/27/25 07/27/25 07/28/25 15:00 23:00 07:00 Intake Total 50 ml 1185 ml 800 ml Balance 50 ml 1185 ml 800 ml medications Current Medications Medications Dose Ordered Sig/Colby Route Start Time Stop Time Status Last Admin Dose Admin Acetaminophen 325 mg Q4HP PRN PO 07/25/25 22:15 07/28/25 05:43 325 MG Acetaminophen/ Hydrocodone Bitart 1 tab Q4HP PRN PO 07/25/25 22:15 07/28/25 13:53 1 TAB Fluoxetine HCl 10 mg DAILY PO 07/26/25 10:00 07/28/25 09:36 10 MG Gabapentin 300 mg TID PO 07/26/25 06:00 07/28/25 13:48 300 MG Empaglifozin 10 mg DAILY PO 07/26/25 10:00 07/28/25 09:36 10 MG Atorvastatin Calcium 40 mg HS PO 07/26/25 22:00 07/27/25 21:32 40 MG Aspirin 81 mg DAILY PO 07/26/25 10:00 07/28/25 09:36 81 MG Carvedilol 6.25 mg Q12HR PO 07/26/25 10:00 07/28/25 09:37 6.25 MG Furosemide 20 mg BIDD PO 07/26/25 06:00 07/28/25 05:37 20 MG Apixaban 5 mg BID PO 07/26/25 10:00 07/28/25 09:36 5 MG Levalbuterol HCl 0.625 mg Q6HWA NEB 07/26/25 06:00 07/28/25 18:23 0.625 MG Ipratropium [place] 0.5 mg Q6HWA NEB 07/26/25 06:00 07/28/25 18:23 0.5 MG Al Hydrox/Mg Hydrox/Simethicone 30 ml Q6HR PO 07/26/25 18:00 07/28/25 17:51 30 ML Pantoprazole Sodium 40 mg DAILY@0600 PO 07/27/25 06:00 07/28/25 05:37 40 MG Ceftriaxone Sodium 50 ml @ 100 mls/hr DAILY@09 IV 07/27/25 09:00 07/28/25 09:37 100 MLS/HR Diagnostic Test (Pha) 1 strip Q6HR 07/28/25 18:00 07/28/25 17:51 1 STRIP Dextrose 50 ml UD PRN IV 07/28/25 13:30 Topiramate 25 mg DAILY PO 07/28/25 18:30 Examination General: Alert and oriented x4. HEENT: JASON. Moist mucous membranes. Facial warts Respiratory: Clear breath sounds. Cardiovascular: Regular rate and rhythm. S1, S2 normal. Reproducible chest tenderness on palpation. Abdomen: Soft, non-tender. Mild suprapubic tenderness. Musculoskeletal: Low back pain. No midline paraspinal pain. Extremities: No lower extremity edema. Neuro: No neurological deficits laboratory and microbiology Laboratory Tests 07/28/25 17:00 07/28/25 11:00 Test 07/28/25 17:00 Range/Units Serum Glucose 77 74-106 mg/dL Microbiology Date/Time Source Procedure Growth Status 07/26/25 06:11 Blood Blood Culture - Preliminary NO GROWTH AFTER 48 HOURS OF INCUBATION. Resulted Labs and/or images reviewed: Labs reviewed by me, Image(s) reviewed by me Problem List/Assessment/Plan Problem List/Assessment/Plan #Hyperkalemia #Chest pain, non cardiac likely musculoskeletal due to previous Rib fractures/GERD #Rib fractures #GERD # CAD #Heart failure with reduced ejection fraction, stable, no acute exacerbation #Paroxysmal AFib with secondary hypercoagulable status; on apixaban #Chronic obstructive pulmonary disease, no acute exacerbation #CLARENCE on Chronic kidney disease stage 3A due to VMN #Type 2 diabetes mellitus #H/o Deep vein thrombosis #Migraine #Hyponatremia resolved #Complicated UTI Cardiac diet Discontinued Entresto Continue BB, Jardiance, lasix Hyperkalemia protocol: Lokelma; Lasix 20 mg, insulin 10 ui, albuterol 20 mg neb Apixaban due to h/o DVT Continue aspirin and atorvastatin due to CAD Ceftriaxone due to possible UTI breathing treatments q6h continue fluoxetine and gabapentin start topiramate for migraine prophylaxis Continue insulin sliding scale Tylenol and [place] for pain Avoid NSAID due to CLARENCE Maloox Patient was planned to be DC yesterday but due to hyperkalemia, order was held, K+ 5,8 today am, Entresto was DC, hyperkalemia protocol was given, EKG didn't show any changes, K 5 pm: 5 mEq, also, migraine prophylaxis was started with topiramate. Tomorrow; will be reevaluated if DC is safe Goals of care discussed with the patient for 20 minutes; full code DVT prophylaxis: apixaban PUD prophylaxis: Protonix PO Case discussed with Dr Andres Plan discussed with: Patient, Other (RN) My Orders My Orders Orders - CHANTAL CHEN RESIDENT Procedure Category Date Status Time Electrocardigram EKG 07/28/25 Logged 09:52 Glucose Blood PHA 07/28/25 In Process (Accu-Chek Comfort 18:00 Dextrose 50% Syringe PHA 07/28/25 In Process 13:30 Topiramate (Topamax) PHA 07/28/25 In Process 18:30 Complete Blood Count LAB 07/29/25 Verified 04:00 Comprehensive LAB 07/29/25 Verified Metabolic Panel 04:00 Addendum Addendum Addendum I was physically present for the leger portions of the service provided to patient by THE RESIDENT. I have reviewed the documentation, discussed the case with resident and agree with the resident's documentation except as noted. Also the patient's clinical case was discussed with the patient's nurse. This medical document was created using an electronic medical record system with computerized dictation system. Although this document has been carefully reviewed, there might still be some phonetic and typographical errors. These areas are purely typographical due to imperfections of the software programs, and do not reflect any compromise in the patient's medical care. Late signature. Date of Service: Jul 28, 2025 Billing Provider: OLGA ANDRES MD Common Visit Codes: [id number] INP/OBS CARE(HIGH) Secondary Visit Codes: [id number] CARE PLAN 30 MINUTES (20 minutes) CHANTAL CHEN RESIDENT Jul 28, 2025 20:34 OLGA ANDRES MD Jul 29, 2025 09:19
[2025-07-29] VITALS (15 sets, daily range): BP systolic 122–171; BP diastolic 74–87; PULSE 67–90; RESP 16–22; TEMP 97.6–98.3; O2SAT 90–100
[2025-07-29 05:47] LABS: Hematocrit 31.6 % (36.0-46.0); Hemoglobin 10.7 g/dL (12.2-16.2); Mean Corpuscular Hemoglobin 27.8 pg (28.0-32.0); Mean Corpuscular Volume 81.9 fL (80.0-100.0); Nucleated Red Blood Cells % 0.2 %
[2025-07-29 05:57] LABS: Alanine Aminotransferase 13 U/L (7-40); Albumin 3.7 g/dL (3.2-4.8); Alkaline Phosphatase 60 U/L (46-116); Anion Gap 5 (5-15); BUN/Creatinine Ratio 24.2 (10.0-20.0); Carbon Dioxide 30 mmol/L (20-31); Chloride 104 mmol/L (98-107); Sodium 139 mmol/L (136-145); Total Protein 6.2 g/dL (5.7-8.2)
[2025-07-29 05:58] LABS: Bilirubin, Total 0.2 mg/dL (0.2-1.0); Blood Urea Nitrogen 38 mg/dL (9-23); Calcium 8.3 mg/dL (8.7-10.4); Glucose 127 mg/dL (74-106); Potassium 5.3 mmol/L (3.5-5.1)
--- NOTE | 2025-07-29 07:33 | ECG ---
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
--- NOTE | 2025-07-29 11:00 | ECG ---
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
--- NOTE | 2025-07-29 18:12 | DVHPN2 ---
Assessment/Plan Assessment/Plan Subjective History of Present Illness Carrie Jett is a 54-year-old female with a history of CAD, HFeRF30%, COPD, CKD3A, noninsulin-dependent diabetes, and rib fracture, presenting with chest pain and headache for 4 days. The patient reports experiencing pressure-like, on-and-off chest pain that is aggravated at night and improves during the day. She also complains of unilateral headache that worsens with light and sound exposure. The chest pain is reproducible on palpation. She has been experiencing low back pain and mild suprapubic tenderness as well. Ms. Jett's recent medical history is significant. Six months ago, she was treated for pyelonephritis. In March, she suffered a cardiac arrest and was diagnosed with DVT, for which she is currently taking Eliquis. Her last recorded A1c in April was 8.6. The patient is currently taking her home medications, which include fluoxetine, gabapentin, Lasix, Jardiance, aspirin, Coreg, Entresto, Eliquis, and Lipitor. An echocardiogram from April 2025 showed a 30% ejection fraction, dilated left ventricle, severe left ventricular dysfunction, moderate mitral regurgitation, and left atrium enlargement. seen today, K improved, cr stable. dc entresto, start lokelma. Objective Physical Examination General: Alert and oriented x4. HEENT: JASON. Moist mucous membranes. Respiratory: Clear breath sounds. Cardiovascular: Regular rate and rhythm. S1, S2 normal. Reproducible chest tenderness on palpation. Abdomen: Soft, non-tender. Mild suprapubic tenderness. Musculoskeletal: Low back pain. No midline paraspinal pain. Extremities: No lower extremity edema. Laboratory, Imaging, and Diagnostic Test Results - Date: Sat Jul 26 2025 - Creatinine: 1.45 (baseline 1.2) - Glucose: Elevated (value not specified) - BNP: 108 - Troponin: Negative - Urinalysis: Relatively bland - Previous results: - Hemoglobin A1c: 8.6 (April 2025) - Chest X-ray: Healing right 2nd to 5th rib fractures - Renal ultrasound: Normal - EKG: Normal sinus rhythm with left bundle branch block - Echocardiogram (April 2025): 30% ejection fraction, dilated LV, severe LV dysfunction, moderate mitral regurgitation, left atrium enlargement Assessment & Plan Assessment - Coronary artery disease - Heart failure with reduced ejection fraction - Chronic obstructive pulmonary disease - Chronic kidney disease stage 3A - Type 2 diabetes mellitus - Rib fractures - Chest pain - Deep vein thrombosis - Migraine - Hyponatremia - Dyspepsia? - symptomatic UTI? bland urine Plan - Continue home medications: fluoxetine, gabapentin, Lasix, Jardiance, aspirin, Coreg, Entresto, Eliquis, and Lipitor - Start Protonix and Maalox for chest pain (likely related to rib fracture versus dyspepsia) - Administer one dose of Toradol for headache (likely migraine) - Continue Eliquis Diet: cardiac diet DVT PPX: Eliquis Code Status: Full Code. Plan discussed with: Patient My Orders Orders - VIPIN FABIAN MD Procedure Category Date Status Time Cardiac DIET 07/29/25 Transmitted Diet-2gna,Lofat,Lochol Lunch Basic Metabolic Panel LAB 07/30/25 Verified 04:00 Complete Blood Count LAB 07/30/25 Verified 04:00 Date of Service: Jul 29, 2025 Billing Provider: VIPIN FABIAN MD Common Visit Codes: [id number] INP/OBS CARE(HIGH) VIPIN FABIAN MD Jul 29, 2025 18:11
[2025-07-29] MEDS: SODIUM ZIRCONIUM CYCL 10 GM PAK PO ONE (18:15)
[2025-07-30] VITALS (9 sets, daily range): BP systolic 107–145; BP diastolic 74–81; PULSE 68–84; RESP 16–20; TEMP 97–98.3; O2SAT 93–98
[2025-07-30 06:48] LABS: Hematocrit 32.3 % (36.0-46.0); Hemoglobin 10.8 g/dL (12.2-16.2); Mean Corpuscular Hemoglobin 27.6 pg (28.0-32.0); Mean Corpuscular Volume 82.8 fL (80.0-100.0); Nucleated Red Blood Cells % 0.0 %
[2025-07-30 06:57] LABS: Anion Gap 5 (5-15); Carbon Dioxide 31 mmol/L (20-31); Chloride 104 mmol/L (98-107); Potassium 4.6 mmol/L (3.5-5.1); Sodium 140 mmol/L (136-145)
[2025-07-30 07:03] LABS: BUN/Creatinine Ratio 23.4 (10.0-20.0)
[2025-07-30 07:11] LABS: Blood Urea Nitrogen 33 mg/dL (9-23); Calcium 8.3 mg/dL (8.7-10.4); Glucose 108 mg/dL (74-106)
[2025-07-30] MEDS: KETOROLAC TROMETH 30 MG/ML 1ML VIAL IM ONE (12:08)
[2025-07-30] MEDS ORDERED: HYDR-4902 PO (13:35)
== END 2025-07-30 14:38 | disposition home or self-care (01) | DRG 54 ==
LOC: ER 17:41 → OVERFLOW 22:14 → TELE-EAST 07-26 01:49
PROVIDERS: ADMIT Student in an Organized Health Care Education/Training Program; ATTEND Student in an Organized Health Care Education/Training Program
DX: G43.909 Migraine, unspecified, not intractable, without status migrainosus (principal); N17.0 Acute kidney failure with tubular necrosis; I50.22 Chronic systolic (congestive) heart failure; I13.0 Hypertensive heart and chronic kidney disease with heart failure and stage 1 through stage 4 chronic kidney disease, or unspecified chronic kidney disease; E87.1 Hypo-osmolality and hyponatremia; D68.69 Other thrombophilia; E11.22 Type 2 diabetes mellitus with diabetic chronic kidney disease; E11.40 Type 2 diabetes mellitus with diabetic neuropathy, unspecified; N30.00 Acute cystitis without hematuria; K21.9 Gastro-esophageal reflux disease without esophagitis; I48.0 Paroxysmal atrial fibrillation; E55.9 Vitamin D deficiency, unspecified; R07.89 Other chest pain; I25.10 Atherosclerotic heart disease of native coronary artery without angina pectoris; N18.31 Chronic kidney disease, stage 3a; E87.5 Hyperkalemia; J44.9 Chronic obstructive pulmonary disease, unspecified; F41.9 Anxiety disorder, unspecified; F32.A Depression, unspecified; I25.2 Old myocardial infarction; Z87.891 Personal history of nicotine dependence; Z86.74 Personal history of sudden cardiac arrest; Z79.84 Long term (current) use of oral hypoglycemic drugs; Z79.899 Other long term (current) drug therapy
CPT/HCPCS: 36415; 71045; 76775; 80048; 80053; 80307; 81001; 82962; 83605; 83690; 83880; 84484; 85025; 85379; 85652; 86141; 87040; 93005; 94640; G0378; J1815; J1885

== ENCOUNTER 2025-08-04 13:29 | Outpatient (CLI) | payer MEDICAID ==
[~2025-08-04 13:29] MED LIST changes: +HYDR-4902 PO; +MAA30LQ GT; -SACU1CAP2 PO; +SEMA2INJ3 SC
[2025-08-04 14:15] LABS: Hematocrit 33.8 % (36.0-46.0); Hemoglobin 11.2 g/dL (12.2-16.2); Mean Corpuscular Hemoglobin 27.2 pg (28.0-32.0); Mean Corpuscular Volume 82.4 fL (80.0-100.0); Nucleated Red Blood Cells % 0.0 %
[2025-08-04 14:16] LABS: Alanine Aminotransferase 20 U/L (7-40); Albumin 4.1 g/dL (3.2-4.8); Alkaline Phosphatase 64 U/L (46-116); Anion Gap 6 (5-15); BUN/Creatinine Ratio 19.8 (10.0-20.0); Calcium 8.8 mg/dL (8.7-10.4); Carbon Dioxide 28 mmol/L (20-31); Chloride 107 mmol/L (98-107); Potassium 4.6 mmol/L (3.5-5.1); Sodium 141 mmol/L (136-145); Total Protein 7.1 g/dL (5.7-8.2); Triglycerides 135 mg/dL (< 150)
[2025-08-04 14:17] LABS: Bilirubin, Total 0.3 mg/dL (0.2-1.0); Cholesterol 141 mg/dL (< 200)
[2025-08-04 14:19] LABS: Blood Urea Nitrogen 26 mg/dL (9-23); Glucose 125 mg/dL (74-106); HDL Cholesterol 39 mg/dL (40-59)
[2025-08-04 16:00] LABS: Hepatitis A Total Antibody Positive (Negative); Hepatitis C Antibody Negative (Negative)
[2025-08-04 16:02] LABS: Hepatitis B Surface Antigen Positive (Negative)
== END 2025-08-04 17:00 | disposition home or self-care (01) ==
LOC: LAB 13:29
PROVIDERS: ATTEND Licensed Practical Nurse
DX: I10 Essential (primary) hypertension (principal); E11.65 Type 2 diabetes mellitus with hyperglycemia; Z12.11 Encounter for screening for malignant neoplasm of colon; Z00.01 Encounter for general adult medical examination with abnormal findings
CPT/HCPCS: 36415; 80053; 80061; 82043; 82274; 83036; 84443; 85025; 86704; 86706; 86708; 86803; 87340